=== PATIENT | female | born 1940 | race Caucasian/White ===

== ENCOUNTER → 2019-08-12 13:56 | Outpatient (BNVA) | payer MEDICARE, MEDICAID, SELFPAY | PROVIDERS: Family Provider Family Medicine; Visit Provider Family Medicine | DX: M25.561 Pain in right knee (principal); M25.461 Effusion, right knee | CPT/HCPCS: 73562 ==

== ENCOUNTER 2019-08-14 13:07 | Emergency (ER) | payer MEDICARE, MEDICAID, SELFPAY ==
[2019-08-14 13:23] VITALS: BP 165/77; PULSE 86; RESP 16; TEMP 37; O2SAT 96; BMI 27.7
--- NOTE | 2019-08-14 13:46 | ED_ITS ---
HPI - Extremity Problem General: Chief complaint: Extremity Injury, Lower Stated complaint: Rt leg pain/fall last week Time Seen by Provider: 08/14/19 13:29 Source: patient Mode of arrival: ambulatory Limitations: no limitations History of Present Illness: HPI Narrative: 79-year-old female with a history of arthritis states she has been having right knee pain over the last 5 to 6 days with worsening recently. Patient seen yesterday and had x-rays showed osteoarthritis. She states they did not give her any pain meds and she is having worsening pain. She is able to walk but states it painful. She has an appoint with Dr. Pike next week. Denies any new injuries. Denies any swelling in her legs. MD Complaint: extremity pain and joint paint Onset (ago): day(s) Pain Consistency: constant Location: right Severity scale (1-10): 5 Quality: sharp Radiation: none Relieving factors: immobilization Exacerbating factors: range of motion Associated symptoms: Reports no associated symptoms; Deny chest pain, fever(s) or rash Review of Systems Const: Denies: fever, chills, body aches or change in appetite Eyes: Denies: blurry vision or eye discomfort ENMT: Denies: throat pain or dental pain Card: Denies: chest pain Resp: Denies: shortness of breath GI: Denies: abdominal pain, nausea, vomiting or diarrhea : Denies: painful urination Musc: Reports: joint pain; Denies: neck pain or back pain Skin/Breast: Denies: rash Neuro: Denies: headache Psych: Denies: depression Joni/Lymph: Denies: easy bruising All/Imm: Denies: hives [facility] ED PFSH: Social History (Updated 08/12/19 @ 13:00 by Miriam Perez LPN) Smoking and tobacco status: never smoked Quit status (tobacco): has quit using tobacco Year quit tobacco: 07/01/1995 Physical Exam Const: COMMON NORMALS: no apparent distress, oriented x3 and healthy appearing HENMT: COMMON NORMALS: normocephalic and head/scalp atraumatic HEAD & SCALP: normocephalic and atraumatic Eye: COMMON NORMALS: PERRL and EOMs intact bilaterally PUPIL: Yes PERRL Neck/C-Spine: COMMON NORMALS: full ROM and supple Chest: COMMONS NORMALS: inspection of chest normal and palpation of chest normal Resp: COMMON NORMALS: normal respiratory effort, no retractions, no use of accessory muscles and clear to auscultation bilaterally AUSCULTATION: clear to auscultation bilaterally Cardio: COMMON NORMALS: regular rate, regular rhythm and no murmurs RATE: regular rate RHYTHM: regular rhythm GI: COMMON NORMALS: normal to inspection, nondistended, normoactive bowel sounds, soft to palpation, non-tender and no masses PALPATION: Yes soft Extremity: COMMON NORMALS: normal to inspection and full ROM NARRATIVE EXTREMITY EXAM: Tenderness to right knee with slight swelling. She does have some pain with range of motion with no signs of septic joint. No warmth to touch. Neuro: COMMON NORMALS: oriented x3, moves all extremities and no focal motor deficits Psych: COMMON NORMALS: mental status grossly normal, thought process normal a nd cooperative THOUGHT PROCESS: normal thought process Skin: COMMON NORMALS: no rashes or lesions noted and no wounds GENERAL SKIN EXAM: no rashes or lesions noted Course Vital Signs: Vital signs: Vital Signs Temperature 98.6 F 08/14/19 13:23 Pulse Rate 86 08/14/19 13:23 Respiratory Rate 16 08/14/19 13:23 Blood Pressure 165/77 08/14/19 13:23 Pulse Oximetry 96 08/14/19 13:23 MDM - Extremity (Nontraumatic) MDM Narrative: Medical decision making narrative: Patient presents with knee pain that is chronic in nature likely from arthritis. I reviewed x-ray done yesterday and just shows arthritis. I feel she does not need a repeat x-ray at this time. She has no signs of septic joint. We will place her in an Arya wrap and write pain meds and she is to follow-up with Shahzad next week as scheduled. Discharge Plan Discharge Patient Disposition: Home, Self-Care Clinical Impression: Knee pain, right Qualifiers: Chronicity: chronic Qualified Code(s): M25.561 - Pain in right knee Condition: Stable Prescriptions: [place] 5-325 mg tablet 1 tab PO Q6H PRN (Reason: pain) Qty: 10 RF: 0 EC-Naprosyn 500 mg tablet,delayed release (DR/EC) 500 mg PO BID PRN (Reason: pain) Qty: 20 RF: 0 No Action clopidogrel [Plavix] 75 mg tablet 75 mg PO DAILY RF: 0 metoprolol succinate 200 mg tablet extended release 24 hr 200 mg PO DAILY RF: 0 enalapril maleate 20 mg tablet 20 mg PO BID RF: 0 amlodipine [Norvasc] 10 mg tablet 10 mg PO DAILY RF: 0 famotidine 40 mg tablet 40 mg PO DAILY RF: 0 aspirin [Adult Low Dose Aspirin] 81 mg tablet,delayed release (DR/EC) 81 mg PO DAILY RF: 0 Discharge Orders: Discharge Order (Routine); Ordered 08/14/19 Ordered By: Gaetano Navarrete Referrals: Primo Dunlap MD [Primary Care Provider] - Discharge Diet: Advance as tolerated Discharge Activity: Resume usual activity Patient Instructions: Knee Pain (ED) Discharge Date/Time: 08/14/19 14:10 Coding Level of Care Code ED 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
[2019-08-14] MEDS: HYDROcodone-acetaminophen 5-325 mg Tablet 1 TAB PO (13:49)
== END 2019-08-14 14:10 | disposition home or self-care (01) ==
PROVIDERS: Emergency Provider Emergency Medicine; Family Provider Family Medicine; PCP Family Medicine
DX: M25.561 Pain in right knee (principal); M17.11 Unilateral primary osteoarthritis, right knee; Z87.891 Personal history of nicotine dependence
CPT/HCPCS: 12345; 99281; 99283

== ENCOUNTER → 2019-10-26 13:02 | Outpatient (BNVA) | payer MEDICARE, MEDICAID, SELFPAY | PROVIDERS: Family Provider Family Medicine; PCP Family Medicine; Referring Provider Family Medicine; Visit Provider Specialist | DX: M25.561 Pain in right knee (principal); M17.11 Unilateral primary osteoarthritis, right knee | CPT/HCPCS: 73560; 73565 ==

== ENCOUNTER 2020-02-13 11:32 | Emergency (ER) | payer MEDICARE, MEDICAID, SELFPAY ==
[2020-02-13 11:40] VITALS: BP 173/90; PULSE 87; RESP 18; TEMP 36.7; O2SAT 92; BMI 28.2
--- NOTE | 2020-02-13 12:09 | CTR_ITS ---
PROCEDURE INFORMATION: Exam: CT Maxillofacial Without Contrast Exam date and time: 02/13/2020 12:59 PM Age: 79 years old Clinical indication: Injury or trauma; Fall; Initial encounter; Blunt trauma (contusions or hematomas); Maxilla and jaw; Left TECHNIQUE: Imaging protocol: Computed tomography images of the face without contrast. Radiation optimization: All CT scans at this facility use at least one of these dose optimization techniques: automated exposure control; mA and/or kV adjustment per patient size (includes targeted exams where dose is matched to clinical indication); or iterative reconstruction. COMPARISON: No relevant prior studies available. RADIATION DOSE METRICS: Total DLP (mGy-cm): 752.02 FINDINGS: Orbits: Orbits are normal. Globes are unremarkable. Bones/joints: There are hairline defects through the nasal bone of unknown chronicity. Concave contour abnormality of the left zygomatic arch has a chronic appearance. There are degenerative changes across the temporomandibular joints. Paranasal sinuses: Normal. No air-fluid levels. Soft tissues: There is hematoma in the right facial soft tissues. Dental: Patient is edentulous with dental prosthesis in place. Vasculature: Calcified plaque is present within multiple vascular structures. CT/CT facial bones wo con* [id number] IMPRESSION: 1. There are hairline defects through the nasal bone of unknown chronicity. 2. Concave contour abnormality of the left zygomatic arch has a chronic appearance. 3. There is hematoma in the right facial soft tissues. Radiation Dose CTDIVOL = (mGy): DLP = 752.02 (mGy-cm)
--- NOTE | 2020-02-13 12:09 | CTR_ITS ---
PROCEDURE INFORMATION: Exam: CT Lumbar Spine Without Contrast Exam date and time: 02/13/2020 12:59 PM Age: 79 years old Clinical indication: Injury or trauma; Fall; Initial encounter; Blunt trauma (contusions or hematomas) TECHNIQUE: Imaging protocol: Computed tomography images of the lumbar spine without contrast. Radiation optimization: All CT scans at this facility use at least one of these dose optimization techniques: automated exposure control; mA and/or kV adjustment per patient size (includes targeted exams where dose is matched to clinical indication); or iterative reconstruction. COMPARISON: No relevant prior studies available. RADIATION DOSE METRICS: Total DLP (mGy-cm): 2185.27 FINDINGS: Vertebrae: Mild dextroscoliosis. Acute 10% anterior compression fracture of L1. 1.3 cm benign intraosseous hemangioma in the region of L1. Discs/Spinal canal/Neural foramina: Borderline L2-L3 central spinal stenosis with bilateral lateral recess stenosis. Mild L3-L4 central spinal stenosis with [id number] bilateral lateral recess stenosis. Mild central spinal stenosis with mild bilateral lateral recess stenosis. Mild right posterolateral L4-L5 disc protrusion which may touch the traversing right S1 nerve root. Kidneys and ureters: One or more nonobstructing left renal calyceal stones. Vasculature: Calcification of the abdominal aorta and/or iliac arteries consistent with atherosclerotic vessel disease. Soft tissues: Unremarkable. CT/CT lumbar spine wo con* [id number] IMPRESSION: 1. Acute 10% anterior compression fracture of L1. 2. Borderline L2-L3 central spinal stenosis with bilateral lateral recess stenosis. 3. Mild L3-L4 central spinal stenosis with [id number] bilateral lateral recess stenosis. 4. Mild right posterolateral L4-L5 disc protrusion which may touch the traversing right S1 nerve root. Radiation Dose CTDIVOL = (mGy): DLP = 2185.27 (mGy-cm)
--- NOTE | 2020-02-13 12:09 | CTR_ITS ---
PROCEDURE INFORMATION: Exam: CT Head Without Contrast Exam date and time: 02/13/2020 12:59 PM Age: 79 years old Clinical indication: Injury or trauma; Fall TECHNIQUE: Imaging protocol: Computed tomography of the head without contrast. Radiation optimization: All CT scans at this facility use at least one of these dose optimization techniques: automated exposure control; mA and/or kV adjustment per patient size (includes targeted exams where dose is matched to clinical indication); or iterative reconstruction. COMPARISON: No relevant prior studies available. RADIATION DOSE METRICS: Total DLP (mGy-cm): 803.36 FINDINGS: Brain: Periventricular and subcortical white matter low densities are present which at this age likely represent microvascular ischemic change. 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 There are multiple chronic lacunar infarcts in the internal/external capsules and basal ganglia.No evidence for large acute ischemic infarction. Please note acute ischemia can be occult by head CT. Benign-appearing calcification along the falx cerebrum. Ventricles: No ventriculomegaly. Bones/joints: Unremarkable. No acute fracture. Paranasal sinuses: Visualized sinuses are unremarkable. No fluid levels. Mastoid air cells: There is fluid and/or mucosal thickening in the right mastoid air cells. Vasculature: Calcified plaque is present within the intracranial vasculature. Soft tissues: Unremarkable. CT/CT head wo con* [id number] IMPRESSION: 1. There is a chronic left temporoparietal infarct.There are senescent changes of the brain as described above. No evidence for large acute ischemic infarction or acute intracranial injury. 2. There is fluid and/or mucosal thickening in the right mastoid air cells consistent with mastoiditis. Radiation Dose CTDIVOL = (mGy): DLP = 803.36 (mGy-cm)
--- NOTE | 2020-02-13 12:09 | CTR_ITS ---
PROCEDURE INFORMATION: Exam: CT Cervical Spine Without Contrast Exam date and time: 02/13/2020 12:59 PM Age: 79 years old Clinical indication: Injury or trauma; Fall; Initial encounter; Blunt trauma TECHNIQUE: Imaging protocol: Computed tomography images of the cervical spine without contrast. Radiation optimization: All CT scans at this facility use at least one of these dose optimization techniques: automated exposure control; mA and/or kV adjustment per patient size (includes targeted exams where dose is matched to clinical indication); or iterative reconstruction. COMPARISON: No relevant prior studies available. RADIATION DOSE METRICS: Total DLP (mGy-cm): 480.41 FINDINGS: Vertebrae: No acute fracture. Normal alignment. Discs/Spinal canal/Neural foramina: There are degenerative changes throughout the visualized spine including marginal osteophyte formations, endplate degenerative changes, and facet arthropathy. Multilevel disc space narrowing. There are multilevel broad-based disc osteophyte complexes which indent the anterior thecal sac and result in varying degrees of bilateral neuroforamina narrowing. There are midline disc protrusions indenting the anterior thecal sac at the C2-C3 in the C3-C4 level. There is a midline/right paracentral extrusion at the C4-C5 level which flattens the anterior aspect of the cervical cord. Other bones/joints: Chronic/healed left clavicular fracture. Soft tissues: Unremarkable. Lungs: Lung apices are normal. CT/CT cervical spin wo con* [id number] IMPRESSION: 1. There are midline disc protrusions indenting the anterior thecal sac at the C2-C3 in the C3-C4 level. There is a midline/right paracentral extrusion at the C4-C5 level which flattens the anterior aspect of the cervical cord. 2. There are degenerative changes in the cervical spine as described above. No evidence for acute fracture. Radiation Dose CTDIVOL = (mGy): DLP = 480.41 (mGy-cm)
--- NOTE | 2020-02-13 12:09 | XRR_ITS ---
PROCEDURE INFORMATION: Exam: XR Right Humerus Exam date and time: 02/13/2020 12:14 PM Age: 79 years old Clinical indication: Injury or trauma; Fall; Initial encounter; Blunt trauma (contusions or hematomas); Arm, upper; Right TECHNIQUE: Imaging protocol: XR Right humerus Views: 2 or more views. COMPARISON: No relevant prior studies available. FINDINGS: Bones/joints: There is chronic fracture deformity in the proximal shaft and head of the humerus Soft tissues: Metallic surgical clips seen in the right lateral chest [place] XR/[place] [id number] IMPRESSION: 1. Chronic fracture deformity proximal shaft and head of the humerus. 2. Metallic surgical clips right lateral chest wall 3. Otherwise negative for acute bony abnormalities
--- NOTE | 2020-02-13 12:14 | ED_ITS ---
HPI - Fall General: Chief Complaint: Fall Stated Complaint: FALL/BACK PAIN Time Seen by Provider: 02/13/20 12:01 Source: patient Mode of arrival: ambulatory Limitations: no limitations History of Present Illness: HPI Narrative: Patient states that for years she has had dizziness upon getting out of bed. Yesterday she states that she went to get out of bed and fell was evaluated by her primary care provider and given a steroid shot. Pain has progressively gotten worse patient has large hematoma to right side of her face, large area of bruising to upper arm on the right, sc attered deep bruising covering her lower back. Pain is located primarily in her lower back complaint: fall Onset (ago): day(s) (1) Fall from: standing Fall witnessed: no Place fall occurred: home Loss of consciousness: None Prolonged down time: no Symptoms prior to fall: dizziness Location of injury: face, back and other (Right arm) Review of Systems General: Reports: 10 or more systems reviewed and unremarkable except in HPI and below Musc: Reports: back pain and extremity pain Joni/Lymph: Reports: easy bruising PFSH ED PFSH: Medical History (Updated 02/13/20 @ 14:33 by Christiane Benavides APRN) Anxiety Dyslipidemia Essential (primary) hypertension GERD (gastroesophageal reflux disease) Vitamin D deficiency Surgical History History of appendectomy History of cholecystectomy History of hysterectomy History of lumpectomy of both breasts Total knee replacement status LEFT Family History Brother Cancer Social History Smoking and tobacco status: former smoker Quit status (tobacco): has quit using tobacco Second hand smoke exposure: No Smoking risk assessment/counseling performed?: No Alcohol intake: never Desire information about alcohol rehabilitation?: No Counseling given: No Desire information about substance/drug rehabilitation?: No Counseling given: No Caregiver/support person: No Lives independently: Yes Household members: spouse Housing: House Marital status: service: No Current occupational status: retired History of recent travel: No Current gender identity: Female Physical Exam Const: COMMON NORMALS: no acute distress, patient oriented x3 and alert GENERAL APPEARANCE: cooperative and well kempt HENMT: COMMON NORMALS: normocephalic, external ears normal and TM's normal bilaterally HEAD & SCALP: normocephalic and hematoma HEAD IMAGES: 1. hematoma FACE & SINUS: sinuses nontender and face symmetric EXTERNAL EAR: Yes external ears normal TYMPANIC MEMBRANE: TM's normal bilaterally MOUTH: Normal oral and palatal mucosa present Eye: COMMON NORMALS: Equal, round and reactive pupils present GENERAL EYE: appearance normal, both eyes and all related structures PUPIL: Yes Equal, round and reactive pupils present and Yes Pupil accommodation reflex normal Neck/C-Spine: COMMON NORMALS: full ROM, no lymphadenopathy, supple, no JVD, Thyroid normal and No carotid bruits GENERAL: Yes trachea midline THYROID: Thyroid normal, no masses and nontender CERVICAL SPINE: Yes cervical ROM normal Lymph: LYMPHATIC: no lymphadenopathy noted Chest: CHEST: Yes Symmetrical chest wall rise Resp: COMMON NORMALS: normal respiratory effort and clear to auscultation bila terally EFFORT & INSPECTION: Yes able to speak in complete sentences AUSCULTATION: clear to auscultation bilaterally Cardio: COMMON NORMALS: no JVD, regular rhythm and No murmurs present (Cardio) PALPATION: normal PMI RHYTHM: regular rhythm GI: COMMON NORMALS: non-tender, no masses and no bruits INSPECTION: Yes normal to inspection, No scar and No striae AUSCULTATION: Yes normoactive bowel sounds PALPATION: No Tenderness to palpation present (GI), No Guarding due to palpation present (GI), No Rigid due to palpation, No Hernia present and No Rebound tenderness present PERCUSSION: normal to percussion : EXTERNAL FEMALE EXAM: No Hernia present Back/Pelvis: GENERAL BACK: No swelling and No tenderness THORACIC SPINE/UPPER BACK: No pain with ROM Extremity: COMMON NORMALS: normal to inspection, no clubbing, cyanosis or edema and no calf tenderness RIGHT UPPER EXTREMITY: Yes upper arm Right upper arm: Yes inspection (Bruising covering extent of upper arm) and Yes palpation (Tenderness to palpation) Neuro: COMMON NORMALS: patient oriented x3 and moves all extremities SENSORIUM/ORIENTATION: Yes alert CRANIAL NERVES: Yes CN normal except as noted GAIT: Yes Normal gait present MOTOR EXAM: 5/5 motor strength present throughout Psych: COMMON NORMALS: mental status grossly normal APPEARANCE: Yes well kempt Skin: COMMON NORMALS: turgor normal NARRATIVE SKIN EXAM: Normal coloration of skin SKIN IMAGES (FEMALE): 1. Bruising 2. Scattered bruising GENERAL SKIN EXAM: turgor normal LESIONS: no lesions RASHES: no rashes TRAUMA: no lacerations or abrasions Course ED course: Patient fell getting up from bed yesterday, was evaluated by her primary care provider no imaging studies ordered at that time. Patient concerned due to progression of pain requesting imaging studies of back. Back is painful with jarring or movement or twisting motion acute onset from fall. Reevaluation(s): Time: 14:33 Reevaluation #2: Discussed results of CT imaging. Patient has acute compression fracture of L1. Due to compression fracture admission was discussed. Patient ins isted she needed to go home. She will follow up with next week regarding fracture. Discussed refusal of admission with daughter and she agrees that she has caregivers in home to ensure she does not fall or further injure. Vital Signs: Vital signs: Vital Signs Temperature 98.1 F 02/13/20 11:40 Pulse Rate 87 02/13/20 11:40 Respiratory Rate 18 02/13/20 11:40 Blood Pressure 173/90 02/13/20 11:40 Pulse Oximetry 92 02/13/20 11:40 MDM - Fall MDM Narrative: Medical decision making narrative: Discharge home with close follow up with next week. Discharge Plan Discharge Patient Disposition: Home Clinical Impression: Lumbar vertebral fracture Qualifiers: Encounter type: initial encounter Lumbar vertebra fracture level: L1 Fracture type: closed Fracture morphology: wedge compression Qualified Code(s): S32.010A - Wedge compression fracture of first lumbar vertebra, initial encounter for closed fracture Spinal stenosis of lumbar region Qualifiers: Neurogenic claudication status: unspecified Qualified Code(s): M48.061 - Spinal stenosis, lumbar region without neurogenic claudication Condition: Stable Prescriptions: New hydrocodone-acetaminophen 5-325 mg tablet 1 - 2 tab PO Q6H PRN (Reason: pain) 5 Days Qty: 40 RF: 0 No Action clopidogrel [Plavix] 75 mg tablet 75 mg PO DAILY RF: 0 metoprolol succinate 200 mg tablet extended release 24 hr 200 mg PO BEDTIME RF: 0 enalapril maleate 20 mg tablet 20 mg PO BID RF: 0 amlodipine [Norvasc] 10 mg tablet 10 mg PO DAILY RF: 0 famotidine 40 mg tablet 40 mg PO DAILY RF: 0 aspirin [Adult Low Dose Aspirin] 81 mg tablet,delayed release (DR/EC) 81 mg PO DAILY RF: 0 clonazepam 0.5 mg tablet 0.5 mg PO BID RF: 0 tramadol 50 mg tablet 50 mg PO QID PRN (Reason: Pain) RF: 0 simvastatin 20 mg tablet 20 mg PO DAILY RF: 0 amitriptyline 100 mg tablet 100 mg PO BEDTIME PRN (Reason: unknown) RF: 0 28 mg iron- 800 mcg Tablet 1 tab PO DAILY RF: 0 Discharge Orders: Discharge Order (Routine); Ordered 02/13/20 Ordered By: Christiane Benavides Referrals: Primo Dunlap MD [Primary Care Provider] - 1-3 days Discharge Diet: Usual diet Discharge Activity: Limit activity as instructed Patient Instructions: Vertebral Compression Fracture (ED), Lumbar Disc Herniation (ED), Lumbar Spinal Stenosis (ED) Coding Level of Care Code 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
[2020-02-13] MEDS: HYDROcodone-acetaminophen 5-325 mg Tablet 1 TAB PO (12:27)
[2020-02-13] MEDS: tizanidine 4 mg Tablet PO (14:02)
[2020-02-13 14:46] VITALS: BP 169/82; PULSE 93; RESP 18; O2SAT 93
== END 2020-02-13 14:48 | disposition home or self-care (01) ==
PROVIDERS: Emergency Provider Nurse Practitioner Family; Family Provider Family Medicine; PCP Family Medicine
DX: S32.010A Wedge compression fracture of first lumbar vertebra, initial encounter for closed fracture (principal); M48.061 Spinal stenosis, lumbar region without neurogenic claudication; Z79.02 Long term (current) use of antithrombotics/antiplatelets; Z79.82 Long term (current) use of aspirin; E78.5 Hyperlipidemia, unspecified; I10 Essential (primary) hypertension; Z87.891 Personal history of nicotine dependence; W06.XXXA Fall from bed, initial encounter
CPT/HCPCS: 12345; 70450; 70486; 72125; 72131; 73060; 99281; 99283

== ENCOUNTER 2020-02-18 09:00 | Outpatient (CLI) | payer MEDICARE, MEDICAID, SELFPAY | END 2020-02-18 09:01 | disposition home or self-care (01) | LOC: SPT 05-09 17:59 | PROVIDERS: PCP Family Medicine; Referring Provider Family Medicine; Visit Provider Family Medicine | DX: M54.89 Other dorsalgia (principal); Z46.89 Encounter for fitting and adjustment of other specified devices | CPT/HCPCS: 97760; L0637 ==

== ENCOUNTER 2020-02-25 11:27 | Emergency (ER) | payer MEDICARE, MEDICAID, SELFPAY ==
[2020-02-25 12:21] VITALS: BP 107/72; PULSE 71; RESP 18; TEMP 36.4; O2SAT 95; BMI 27.4
--- NOTE | 2020-02-25 13:18 | W.ED.BACK ---
HPI - Back Pain/Injury General: Chief Complaint: Back Pain/Injury Stated Complaint: BACK PAIN Source: patient Mode of arrival: ambulatory Limitations: no limitations History of Present Illness: HPI Narrative: Patient is an 79-year-old female who presents to ED today with a complaint of back pain. Patient was seen here last month and diagnosed with an L1 compression fracture. She apparently followed up with her PCP Dr. Dunlap who recommended physical therapy starting a month after her initial injury. Patient tells me she has not been taking anything [id number] at home as Tylenol and ibuprofen upset her stomach. She tells me at one point she was taking Tramadol but states she is out of this medication. Patient tells me she has a Band-Aid on her back because there is an area of soreness that is new. Patient has not had any new injury or trauma to her back. MD elicited complaint: back pain Onset (ago): day(s) Timing: constant Similar Symptoms Previously: Yes Radiation: none Associated symptoms: Deny abdominal pain, chills, dysuria, fatigue, fever(s), nausea, urinary urgency or vomiting Review of Systems Const: Denies: fever(s), chills, body aches, fatigue or malaise Card: Denies: chest pain Resp: Denies: dyspnea GI: Denies: abdominal pain, nausea or vomiting : Denies: flank pain, difficulty voiding, dysuria, urinary frequency, urinary urgency or urinary hesitancy Musc: Reports: back pain; Denies: neck pain, extremity pain, extremity swelling, joint pain or joint swelling Skin/Breast: Reports: other (sore to back) Neuro: Denies: headache(s), numbness in extremities, weakness in extremities or sensory changes PFS ED PFSH: Medical History (Updated 02/25/20 @ 13:37 by GALLITO Evans) Anxiety Dyslipidemia Essential (primary) hypertension GERD (gastroesophageal reflux disease) Vitamin D deficiency Surgical History History of appendectomy History of cholecystectomy History of hysterectomy History of lumpectomy of both breasts Total knee replacement status LEFT Family History Brother Cancer Social History Smoking and tobacco status: former smoker Quit status (tobacco): has quit using tobacco Second hand smoke exposure: No Smoking risk assessment/counseling performed?: No Alcohol intake: never Desire information about alcohol rehabilitation?: No Counseling given: No Desire information about substance/drug rehabilitation?: No Counseling given: No Caregiver/support person: No Lives independently: Yes Household members: spouse Housing: House Marital status: service: No Current occupational status: retired History of recent travel: No Current gender identity: Female Physical Exam Const: COMMON NORMALS: no acute distress, patient oriented x3, no limitations and alert ORIENTATION/CONSCIOUSNESS: Yes oriented to person, Yes oriented to place and Yes oriented to time : COMMON NORMALS: Yes no CVA tenderness BLADDER/KIDNEY EXAM: Yes no CVA tenderness Back/Pelvis: COMMON NORMALS: no CVA tenderness THORACIC SPINE/UPPER BACK: Yes normal to inspection and Yes thoracic ROM normal LUMBAR SPINE/LOWER BACK: Yes lumbar ROM normal and Yes lumbar spinal tenderness Lumbar spinal tenderness location: L1 PELVIS: Yes buttocks normal SACROILIAC JOINTS: Yes SI joints normal Extremity: COMMON NORMALS: full ROM GENERAL: Yes normal exam except as noted OTHER: old ecchymosis to R UE; full ROM Neuro: COMMON NORMALS: patient oriented x3, moves all extremities, no focal motor deficits, no sensory deficits noted and gait normal SENSORIUM/ORIENTATION: Yes alert, Yes oriented to person, Yes oriented to place and Yes oriented to time Skin: OTHER: pt has an area about 1 inch of erythema with healing granulation tissue to R of upper midline lumbar spine; she does tell me she has been using a heating pad Course Vital Signs: Vital signs: Vital Signs Temperature 97.5 F L 02/25/20 12:21 Pulse Rate 71 02/25/20 12:21 Respiratory Rate 18 02/25/20 12:21 Blood Pressure 107/72 02/25/20 12:21 Pulse Oximetry 95 02/25/20 12:21 MDM - Back Pain/Injury MDM Narrative: Medical decision making narrative: Due to patient's age and location of her burn she most likely will not be able to treat this appropriately at home. We will have case management set her up with wound care so they can ensure wound heals. Will place her on Keflex at this time. She will be given Tramadol for her pain in regards to her L1 compression fracture. Recommend she follow-up with Dr. Dunlap. She thinks she has a scheduled appointment in 1 to 2 weeks. Recommend continuing on the plan for physical therapy and/or referral to pain management if indicated. Discharge Plan Discharge Patient Disposition: Home Clinical Impression: Second degree burn Closed compression fracture of L1 vertebra Qualifiers: Encounter type: subsequent encounter Fracture healing: with routine healing Qualified Code(s): S32.010D - Wedge compression fracture of first lumbar vertebra, subsequent encounter for fracture with routine healing Condition: Stable Prescriptions: New tramadol 50 mg tablet 50 mg PO Q6H PRN (Reason: pain) Qty: 14 RF: 0 Keflex 500 mg capsule 500 mg PO Q6H 7 Days Qty: 28 RF: 0 No Action clopidogrel [Plavix] 75 mg tablet 75 mg PO DAILY RF: 0 metoprolol succinate 200 mg tablet extended release 24 hr 200 mg PO BEDTIME RF: 0 enalapril maleate 20 mg tablet 20 mg PO BID RF: 0 amlodipine [Norvasc] 10 mg tablet 10 mg PO DAILY RF: 0 famotidine 40 mg tablet 40 mg PO DAILY RF: 0 aspirin [Adult Low Dose Aspirin] 81 mg tablet,delayed release (DR/EC) 81 mg PO DAILY RF: 0 clonazepam 0.5 mg tablet 0.5 mg PO BID RF: 0 tramadol 50 mg tablet 50 mg PO QID PRN (Reason: Pain) RF: 0 simvastatin 20 mg tablet 20 mg PO DAILY RF: 0 amitriptyline 100 mg tablet 100 mg PO BEDTIME PRN (Reason: unknown) RF: 0 28 mg iron- 800 mcg Tablet 1 tab PO DAILY RF: 0 Discharge Orders: Discharge Order (Routine); Ordered 02/25/20 Ordered By: Arianna Lake Referrals: Primo Dunlap MD [Primary Care Provider] - Patient Instructions: Thermal Santiago, Vertebral Compression Fracture (ED), Partial Thickness Burn (ED) Activity Restrictions/Additional Instructions: As discussed I am placing you on antibiotics for the burn on your back. Case management should also be contacting you shortly to set you up with wound care to ensure the wound heals. Please follow-up with Dr. Dunlap in 1 to 2 weeks as scheduled. Discharge Date/Time: 02/25/20 13:51 Coding Level of Care Code ED Semiconductor Wafers Tester for Denise Cunningham
[2020-02-25 13:49] VITALS: BP 112/82; PULSE 80; RESP 16; O2SAT 95
--- NOTE | 2020-02-25 14:58 | DCPLANNER ---
commercial relationship manager had message to schedule a follow up appointment with Wound Care. commercial relationship manager called the Wound Care clinic, spoke with Radha, gave clinic patients information, a follow up appointment is scheduled for Saturday, February 29, 2020 at 2:00 with Jolynn. commercial relationship manager called phone numbers [phone] and [phone]. commercial relationship manager was unable to speak with patient at this time, a voicemail was left for patient to return pillowcase turner phone call about appointment information.
--- NOTE | 2020-02-26 11:47 | DCPLANNER ---
patient scheduling manager called patient and gave patient the appointment information with Wound Care. Patient stated that she would attend appointment.
--- NOTE | 2020-03-07 10:24 | DCPLANNER ---
Patient had a follow up appointment scheduled for 02.29.20 with Wound Care - patient did not attend appointment.
== END 2020-02-25 13:51 | disposition home or self-care (01) ==
PROVIDERS: Emergency Provider Physician Assistant; PCP Family Medicine
DX: S32.010A Wedge compression fracture of first lumbar vertebra, initial encounter for closed fracture (principal); T21.24XA Burn of second degree of lower back, initial encounter; Z79.02 Long term (current) use of antithrombotics/antiplatelets; Z79.82 Long term (current) use of aspirin; X19.XXXA Contact with other heat and hot substances, initial encounter; Z87.891 Personal history of nicotine dependence; E78.5 Hyperlipidemia, unspecified; I10 Essential (primary) hypertension
CPT/HCPCS: 12345; 99281

== ENCOUNTER 2020-04-12 13:40 | Outpatient (CLI) | payer MEDICARE, MEDICAID, SELFPAY ==
--- NOTE | 2020-04-12 13:49 | CT_ITS ---
WS: [id number] Exam: CT lumbar spine wo con* [id number] Date/Time of Exam: 04/12/2020 2:00 PM Reason For Exam: LATE EFFECT OF FRACTURE OF LUMBAR VERTEBRA DLP: 2063.[address] scans at [facility] use at least one of these dose optimization techniques: automat ed exposure control; mA and/or kV adjustment per patient size (includes targeted exams where dose is matched to clinical indication); or iterative reconstruction. Comparison 02/13/2020 Increasing loss of vertebral height involving a compression fracture of the cephalad end plate of L1. There is now about 20% loss of vertebral height and about 3 mm central and left retropulsion of the fracture. This causes minimal canal stenosis at this level. There is also moderately severe relative central spinal canal stenosis at the L4-5 disc level secondary to posterior disc bulging, facet hyper trophy and ligamentous thickening. There is moderate spinal canal stenosis at the L2-3 and L3-4 disc levels. There is mild spinal canal stenosis at the L1-2 disc level. No significant foraminal stenosis is demonstrated. Facet DJD at all levels. Paraspinal and retroperitoneal soft tissue structures are unremarkable. CT/CT lumbar spine wo con* [id number] IMPRESSION: 1. Progressive loss of vertebral height involving a compression fracture of the L1. There is now about 20% loss of vertebral height and about 3 mm retropulsio n which causes minimal canal stenosis. 2. Moderately severe spinal canal stenosis at the L4-5 disc level. 3. Moderate spinal canal stenosis at L2-3 and L3-4. 4. Mild spinal canal stenosis at L1-2.
== END 2020-04-12 13:41 | disposition home or self-care (01) ==
LOC: RADWPI 13:47
PROVIDERS: PCP Family Medicine; Visit Provider Family Medicine
DX: S32.010A Wedge compression fracture of first lumbar vertebra, initial encounter for closed fracture (principal); M48.061 Spinal stenosis, lumbar region without neurogenic claudication; X58.XXXA Exposure to other specified factors, initial encounter
CPT/HCPCS: 72131

== ENCOUNTER → 2020-05-05 16:01 | Outpatient (BNVA) | payer MEDICARE, MEDICAID, SELFPAY | PROVIDERS: PCP Family Medicine; Visit Provider Orthopaedic Surgery | DX: S32.000A Wedge compression fracture of unspecified lumbar vertebra, initial encounter for closed fracture (principal); X58.XXXA Exposure to other specified factors, initial encounter | CPT/HCPCS: 72114 ==

== ENCOUNTER → 2020-06-10 10:31 | Outpatient (BNVA) | payer MEDICARE, MEDICAID, SELFPAY | PROVIDERS: PCP Family Medicine; Visit Provider Orthopaedic Surgery | DX: M54.5 Low back pain (principal) | CPT/HCPCS: 72114 ==

== ENCOUNTER 2020-06-12 15:51 | Emergency (ER) | payer MEDICARE, MEDICAID, SELFPAY ==
[2020-06-12 16:04] VITALS: BP 124/77; PULSE 77; RESP 14; TEMP 36.2; O2SAT 97; BMI 25.2
[2020-06-12 16:22] VITALS: BP 110/85; PULSE 76; RESP 18; O2SAT 96
--- NOTE | 2020-06-12 16:24 | ED_ITS ---
HPI - Fall General: Chief Complaint: Fall Stated Complaint: fall/back pain Time Seen by Provider: 06/12/20 16:18 History of Present Illness: HPI Narrative: Patient complains about chronic back pain has seen Dr. Dunlap last week and now is supposed to see Dr. Melgar again on Saturday which is tomorrow patient is out of pain medication would like pain medication. MD complaint: fall and other Onset (ago): year(s) Severity: moderate Severity scale (1-10): 4 Quality: aching Associated symptoms-after fall: Reports no associated symptoms; Denies abdominal pain, chest pain or headache(s) Review of Systems Const: Denies: fever(s), chills or body aches Eyes: Denies: change in vision or blurry vision ENMT: Denies: throat pain or nasal congestion Card: Denies: chest pain or dyspnea on exertion Resp: Denies: dyspnea, productive cough or non-productive cough GI: Denies: abdominal pain, nausea or vomiting Musc: Reports: back pain (Chronic); Denies: extremity pain Skin/Breast: Denies: rash Neuro: Denies: headache(s) Psych: Denies: anxiety or depression Joni/Lymph: Denies: easy bruising PFSH ED PFSH: Medical History (Updated 06/12/20 @ 16:33 by GABRIELLA Foley) Anxiety Dyslipidemia Essential (primary) hypertension GERD (gastroesophageal reflux disease) Vitamin D deficiency Surgical History History of appendectomy History of cholecystectomy History of hysterectomy History of lumpectomy of both breasts Total knee replacement status LEFT Family History Brother Cancer Social History Smoking and tobacco status: former smoker Quit status (tobacco): has quit using tobacco Second hand smoke exposure: No Smoking risk assessment/counseling performed?: No Alcohol intake: never Desire information about alcohol rehabilitation?: No Counseling given: No Desire information about substance/drug rehabilitation?: No Counseling given: No Caregiver/support person: No Lives independently: Yes Household members: spouse Housing: House Marital status: service: No Current occupational status: retired History of recent travel: No Current gender identity: Female Physical Exam Const: COMMON NORMALS: no acute distress Cardio: COMMON NORMALS: regular rate RATE: regular rate Back/Pelvis: COMMON NORMALS: thoracic and lumbar spine normal to inspection Psych: COMMON NORMALS: mental status grossly normal Course Vital Signs: Vital signs: Vital Signs Temperature 98.6 F 06/12/20 17:08 Pulse Rate 76 06/12/20 17:08 Respiratory Rate 18 06/12/20 17:08 Blood Pressure 112/76 06/12/20 17:08 Pulse Oximetry 95 06/12/20 17:08 MDM - Fall MDM Narrative: Medical decision making narrative: Patient received 40 hydrocodone just this past week has not taken all those. She can continue on those present medications added Celebrex and home comfort measures Discharge Plan Discharge Patient Disposition: Home Clinical Impression: Compression fracture Condition: Stable Prescriptions: No Action clopidogrel [Plavix] 75 mg tablet 75 mg PO DAILY@0800 RF: 0 metoprolol succinate 200 mg tablet extended release 24 hr 200 mg PO BEDTIME@2200 RF: 0 enalapril maleate 20 mg tablet 20 mg PO BID@0800,2200 RF: 0 amlodipine [Norvasc] 10 mg tablet 10 mg PO DAILY@0800 RF: 0 famotidine 40 mg tablet 40 mg PO DAILY@0800 RF: 0 aspirin [Adult Low Dose Aspirin] 81 mg tablet,delayed release (DR/EC) 81 mg PO DAILY@0800 RF: 0 hydrocodone-acetaminophen [[place]] 5-325 mg tablet 1 tab PO Q6H PRN (Reason: pain) 7 Days Qty: 40 RF: 0 clonazepam 0.5 mg tablet 0.5 mg PO BID@0800,2200 RF: 0 tramadol 50 mg tablet 50 mg PO QID PRN (Reason: Pain) RF: 0 simvastatin 20 mg tablet 20 mg PO DAILY@0800 RF: 0 amitriptyline 100 mg tablet 100 mg PO BEDTIME@2200 PRN (Reason: unknown) RF: 0 PNV cmb#95-ferrous fumarate-FA [] 28 mg iron- 800 mcg Tablet 1 tab PO DAILY@0800 RF: 0 Discharge Orders: Discharge ED (Routine); Ordered 06/13/20 Ordered By: Jeet Davis Referrals: Primo Dunlap MD [Primary Care Provider] - Discharge Diet: Usual diet Discharge Activity: Increase activity as tolerated Patient Instructions: Vertebral Compression Fracture (ED) Activity Restrictions/Additional Instructions: Continue on present medication Dr. Melgar gave you. Can apply lidocaine patch to the back. She did wear a back brace. Dr. Melgar tomorrow as scheduled. Can also use ice and heat alternate to back area. Coding Level of Care Code ED Organic Gardening Teacher for Denise Fwd Exam Expanded Problem Focused
[2020-06-12 17:08] VITALS: BP 112/76; PULSE 76; RESP 18; TEMP 37; O2SAT 95
== END 2020-06-12 17:11 | disposition home or self-care (01) ==
PROVIDERS: Emergency Provider Nurse Practitioner Family; PCP Family Medicine
DX: T14.8XXA Other injury of unspecified body region, initial encounter (principal); E78.5 Hyperlipidemia, unspecified; I10 Essential (primary) hypertension; Z87.891 Personal history of nicotine dependence; X58.XXXA Exposure to other specified factors, initial encounter
CPT/HCPCS: 12345; 99281

== ENCOUNTER → 2020-06-13 15:21 | Outpatient (BNVA) | payer MEDICARE, MEDICAID, SELFPAY | PROVIDERS: PCP Family Medicine; Visit Provider Nurse Practitioner Family | DX: R10.9 Unspecified abdominal pain (principal); N39.0 Urinary tract infection, site not specified | CPT/HCPCS: 81003; 87086 ==

== ENCOUNTER → 2020-06-21 08:54 | Outpatient (BNVA) | payer MEDICARE, MEDICAID, SELFPAY | PROVIDERS: PCP Family Medicine; Visit Provider Orthopaedic Surgery | DX: S32.010D Wedge compression fracture of first lumbar vertebra, subsequent encounter for fracture with routine healing (principal); X58.XXXD Exposure to other specified factors, subsequent encounter | CPT/HCPCS: 72100 ==

== ENCOUNTER → 2020-08-23 11:03 | Outpatient (BNVA) | payer MEDICARE, MEDICAID, SELFPAY | PROVIDERS: PCP Family Medicine; Visit Provider Orthopaedic Surgery | DX: S32.010D Wedge compression fracture of first lumbar vertebra, subsequent encounter for fracture with routine healing (principal); X58.XXXD Exposure to other specified factors, subsequent encounter | CPT/HCPCS: 72110 ==

== ENCOUNTER → 2020-09-13 11:09 | Outpatient (BNVA) | payer MEDICARE, MEDICAID, SELFPAY | PROVIDERS: PCP Family Medicine; Visit Provider Orthopaedic Surgery | DX: M54.9 Dorsalgia, unspecified (principal); S32.010A Wedge compression fracture of first lumbar vertebra, initial encounter for closed fracture; W19.XXXA Unspecified fall, initial encounter; M25.522 Pain in left elbow | CPT/HCPCS: 72110; 73080 ==

== ENCOUNTER 2020-12-12 11:21 | Emergency (ER) | payer MEDICARE, MEDICAID, SELFPAY ==
[2020-12-12 11:31] VITALS: BP 116/76; PULSE 74; RESP 16; TEMP 37.2; O2SAT 93; BMI 26.6
--- NOTE | 2020-12-12 12:30 | XRR_ITS ---
PROCEDURE INFORMATION: Exam: XR Left Shoulder Exam date and time: 12/12/2020 12:30 PM Age: 80 years old Clinical indication: Injury or trauma; Fall; Blunt trauma (contusions or hematomas); Shoulder; Left TECHNIQUE: Imaging protocol: XR Left shoulder. Views: 2 or more views. COMPARISON: CR XR elbow LT min 3V* [id number] 09/13/2020 11:14 AM FINDINGS: Bones/joints: There is a transverse displaced fracture of the surgical neck of the humerus. A chronic fracture deformity is seen in the midshaft left clavicle. No glenohumeral joint dislocation is seen. Soft tissues: Unremarkable. XR/XR shoulder LT min 2V* [id number] IMPRESSION: 1. Displaced fracture surgical neck of the humerus. 2. Chronic fracture left midshaft clavicle 3. Otherwise negative examination.
--- NOTE | 2020-12-12 12:30 | XRR_ITS ---
PROCEDURE INFORMATION: Exam: XR Left Humerus Exam date and time: 12/12/2020 12:30 PM Age: 80 years old Clinical indication: Pain and injury or trauma; Fall; Blunt trauma (contusions or hematomas); Arm, upper; Left; Upper arm; Additional info: Fall/pain TECHNIQUE: Imaging protocol: XR Left humerus. Views: 2 or more views. COMPARISON: CR XR shoulder LT min 2V* [id number] 12/12/2020 1:02 PM FINDINGS: Bones/joints: There is a transverse displaced fracture through the surgical neck of the humerus. The remainder of the humerus does not show acute bony abnormalities. Soft tissues: Unremarkable XR/[place] [id number] IMPRESSION: No acute findings.
--- NOTE | 2020-12-12 14:34 | ED_ITS ---
HPI - Fall General: Chief Complaint: Extremity Injury, Upper Stated Complaint: Left arm pain 2nd to fall Time Seen by Provider: 12/12/20 14:15 Source: patient and family Mode of arrival: wheelchair Limitations: no limitations History of Present Illness: HPI Narrative: Patient is a nice 80-year-old female who presents to ED today with a complaint of left shoulder pain. Patient tells me yesterday while in her home she tripped and fell and landed onto her left shoulder. Patient has complained of pain since. She denies striking her head or LOC. She does not complain of neck or back pain. She has been ambulatory since the fall without difficulty. Patient tells me she is not on anticoagulation. MD complaint: fall Onset (ago): day(s) (yesterday) Fall from: standing Place fall occurred: home Loss of consciousness: None Prolonged down time: no Symptoms prior to fall: none Context: tripped/slipped Location of injury - extremities: Left: shoulder Severity: severe Associated symptoms-after fall: Reports no associated symptoms; Denies abdominal pain, chest pain or neck pain Review of Systems Const: Denies: fever(s) Eyes: Denies: change in vision or blurry vision Card: Denies: chest pain Resp: Denies: dyspnea GI: Denies: abdominal pain Musc: Reports: joint pain (L shoulder), joint swelling (L shoulder) and limited range of motion (L shoulder); Denies: neck pain, back pain, extremity pain or extremity swelling Neuro: Reports: other (bruising to L shoulder) [facility] ED PFSH: Medical History (Updated 12/12/20 @ 14:37 by GALLITO Evans) Anxiety Dyslipidemia Essential (primary) hypertension GERD (gastroesophageal reflux disease) Vitamin D deficiency Surgical History History of appendectomy History of cholecystectomy History of hysterectomy History of lumpectomy of both breasts Total knee replacement status LEFT Family History Brother Cancer Social History Smoking and tobacco status: former smoker Quit status (tobacco): has quit using tobacco Second hand smoke exposure: No Smoking risk assessment/counseling performed?: No Alcohol intake: never Desire information about alcohol rehabilitation?: No Counseling given: No Desire information about substance/drug rehabilitation?: No Counseling given: No Caregiver/support person: No Lives independently: Yes Household members: spouse Housing: House Marital status: service: No Current occupational status: retired History of recent travel: No Current gender identity: Female Physical Exam Const: COMMON NORMALS: no acute distress, average body habitus, patient oriented x3, no limitations, healthy appearing, alert and well nourished GENERAL APPEARANCE: cooperative ORIENTATION/CONSCIOUSNESS: Yes awake, Yes oriented to person, Yes oriented to place and Yes oriented to time HENMT: COMMON NORMALS: normocephalic and atraumatic HEAD & SCALP: normocephalic and atraumatic Neck/C-Spine: COMMON NORMALS: full ROM CERVICAL SPINE: No pain with cervical ROM and No Cervical spine tenderness Resp: COMMON NORMALS: normal respiratory effort and clear to auscultation bilaterally AUSCULTATION: clear to auscultation bilaterally Cardio: COMMON NORMALS: regular rate and regular rhythm RATE: regular rate RHYTHM: regular rhythm Back/Pelvis: COMMON NORMALS: thoracic and lumbar spine normal to inspection, no thoracic nor lumbar tenderness and thoraco-lumbar ROM normal Extremity: GENERAL: Yes normal exam except as noted LEFT UPPER EXTREMITY: Yes shoulder joint Left shoulder joint: Yes inspection (diffuse ecchymosis and pain to humeral head), Yes ROM (no ROM testing performed secondary to discomfort/deformity) and Yes neurovascular exam (normal) Neuro: COMMON NORMALS: patient oriented x3, moves all extremities, no focal motor deficits and no sensory deficits noted SENSORIUM/ORIENTATION: Yes alert, Yes oriented to person, Yes oriented to place and Yes oriented to time Skin: NARRATIVE SKIN EXAM: ecchymosis to L shoulder/upper arm; otherwise n ormal skin assessment Course Vital Signs: Vital signs: Vital Signs Temperature 99 F 12/12/20 11:31 Pulse Rate 74 12/12/20 11:31 Respiratory Rate 16 12/12/20 11:31 Blood Pressure 116/76 12/12/20 11:31 Pulse Oximetry 93 12/12/20 11:31 MDM - Fall MDM Narrative: Medical decision making narrative: Will place in sling and have her follow up with orthopedics as soon as possible. Imaging Data^: XR L humerus: Radiologist's impression: [address] [place] [address] XRay Report Signed Patient: Didi Victoria Unit #: [id number] : 1940 Age/Sex: 80 / F ADM Date: 12/12/20 Loc: ER Room/Bed: Attending Dr: Ordering Provider/Ordering MD: Arianna Lake Date of Service: 12/12/20 Procedure(s): [place] [id number] Accession Number(s): [id number] Report Number: [id number] PROCEDURE INFORMATION: Exam: XR Left Humerus Exam date and time: 12/12/2020 12:30 PM Age: 80 years old Clinical indication: Pain and injury or trauma; Fall; Blunt trauma (contusions or hematomas); Arm, upper; Left; Upper arm; Additional info: Fall/pain TECHNIQUE: Imaging protocol: XR Left humerus. Views: 2 or more views. COMPARISON: CR XR shoulder LT min 2V* [id number] 12/12/2020 1:02 PM FINDINGS: Bones/joints: There is a transverse displaced fracture through the surgical neck of the humerus. The remainder of the humerus does not show acute bony abnormalities. Soft tissues: Unremarkable XR/[place] [id number] IMPRESSION: No acute findings. Dictated By: Leon Botello Signed By: Leon Botello Signed Date/Time: 12/12/20 1400 DD/ 1358 XR L shoulder: Radiologist's impression: [facility] [address] [place] [address] XRay Report Signed Patient: Didi Victoria Unit #: [id number] : 1940 Age/Sex: 80 / F ADM Date: 12/12/20 Loc: ER Room/Bed: Attending Dr: Ordering Provider/Ordering MD: Arianna Lake Date of Service: 12/12/20 Procedure(s): XR shoulder LT min 2V* [id number] Accession Number(s): [id number] Report Number: [id number] PROCEDURE INFORMATION: Exam: XR Left Shoulder Exam date and time: 12/12/2020 12:30 PM Age: 80 years old Clinical indication: Injury or trauma; Fall; Blunt trauma (contusions or hematomas); Shoulder; Left TECHNIQUE: Imaging protocol: XR Left shoulder. Views: 2 or more views. COMPARISON: CR XR elbow LT min 3V* [id number] 09/13/2020 11:14 AM FINDINGS: Bones/joints: There is a transverse displaced fracture of the surgical neck of the humerus. A chronic fracture deformity is seen in the midshaft left clavicle. No glenohumeral joint dislocation is seen. Soft tissues: Unremarkable. XR/XR shoulder LT min 2V* [id number] IMPRESSION: 1. Displaced fracture surgical neck of the humerus. 2. Chronic fracture left midshaft clavicle 3. Otherwise negative examination. Dictated By: Leon Botello Signed By: Leon Botello Signed Date/Time: 12/12/201358 DD/ 1357 Discharge Plan Discharge Patient Disposition: Home Clinical Impression: Closed fracture of surgical neck of humerus Qualifiers: Encounter type: initial encounter Fracture morphology: unspecified fracture morphology Fracture alignment: displaced Laterality: left Qualified Code(s): S42.212A - Unspecified displaced fracture of surgical neck of left humerus, initial encounter for closed fracture Condition: Stable Prescriptions: New hydrocodone-acetaminophen 5-325 mg tablet 1 tab PO Q4H PRN (Reason: pain) Qty: 20 RF: 0 No Action clopidogrel [Plavix] 75 mg tablet 75 mg PO DAILY@0800 RF: 0 metoprolol succinate 200 mg tablet extended release 24 hr 200 mg PO BEDTIME@2200 RF: 0 enalapril maleate 20 mg tablet 20 mg PO BID@0800,2200 RF: 0 amlodipine [Norvasc] 10 mg tablet 10 mg PO DAILY@0800 RF: 0 famotidine 40 mg tablet 40 mg PO DAILY@0800 RF: 0 aspirin [Adult Low Dose Aspirin] 81 mg tablet,delayed release (DR/EC) 81 mg PO DAILY@0800 RF: 0 nitrofurantoin monohyd/m-cryst [Macrobid] 100 mg capsule 100 mg PO Q12H 7 Days Qty: 14 RF: 0 hydrocodone-acetaminophen 5-325 mg tablet 1 tab PO Q6H PRN (Reason: pain) 7 Days Qty: 40 RF: 0 diazepam [Valium] 5 mg tablet 5 mg PO ONCE Qty: 1 RF: 0 alprazolam 0.5 mg tablet 0.5 mg PO DAILY Qty: 1 RF: 0 clonazepam 0.5 mg tablet 0.5 mg PO BID@0800,2200 RF: 0 tramadol 50 mg tablet 50 mg PO QID PRN (Reason: Pain) RF: 0 simvastatin 20 mg tablet 20 mg PO DAILY@0800 RF: 0 amitriptyline 100 mg tablet 100 mg PO BEDTIME@2200 PRN (Reason: unknown) RF: 0 PNV cmb#95-ferrous fumarate-FA [] 28 mg iron- 800 mcg Tablet 1 tab PO DAILY@0800 RF: 0 Discharge Orders: Discharge ED (Routine); Ordered 12/12/20 Ordered By: Arianna Lake Referrals: Primo Dunlap MD [Primary Care Provider] - Patient Instructions: Fractures - Humerus, Arm Fracture in Adults (ED) Activity Restrictions/Additional Instructions: As discussed case management will get you set up to see orthopedics as soon as possible. Please stay in your sling at all times apart from bathing. You may apply ice to the shoulder for 15-20 minutes every other hour to help with swelling. Pain medications may be used for severe pain. Coding Level of Care Code ED Business Solution Analyst for Denise 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
--- NOTE | 2020-12-12 15:10 | DCPLANNER ---
Addendum entered by Cheyenne Felipe 12/13/20 09:05: Patient has a follow up appointment scheduled for Monday, December 14, 2020 at 9:[address] Shelby at the ortho clinic. motor hotel manager informed the ER physician, of the scheduled appointment. Appointment information was added to patients discharge paperwork. Patient is aware of appointment. Original Note: motor hotel manager was asked to schedule a follow up appointment for patient with ortho. motor hotel manager called the ortho clinic, spoke with Rosetta, gave clinic patients information. motor hotel manager was told that patients information would be printed and reviewed. Clinic will call patient with appointment information.
[2020-12-12 15:22] VITALS: RESP 18; O2SAT 96
[2020-12-12] MEDS: morphine 4 mg/mL SDV 1 mL IM (15:22)
[2020-12-12] MEDS: ondansetron 2 mg/ML SDV 2 mL 4 MG IM (15:23)
[2020-12-12 15:55] VITALS: BP 115/75; PULSE 89; RESP 18; TEMP 36.8; O2SAT 96
--- NOTE | 2021-01-12 11:07 | DCPLANNER ---
Patient had a follow up appointment scheduled for 12.14.20 with ortho - patient did attend appointment.
== END 2020-12-12 15:55 | disposition home or self-care (01) ==
PROVIDERS: Emergency Provider Physician Assistant; PCP Family Medicine
DX: S42.212A Unspecified displaced fracture of surgical neck of left humerus, initial encounter for closed fracture (principal); Z79.02 Long term (current) use of antithrombotics/antiplatelets; Z79.82 Long term (current) use of aspirin; E78.5 Hyperlipidemia, unspecified; I10 Essential (primary) hypertension; Z87.891 Personal history of nicotine dependence; W01.0XXA Fall on same level from slipping, tripping and stumbling without subsequent striking against object, initial encounter
CPT/HCPCS: 73030; 73060; 96372; 96374; 96375; 99283; J2270; J2405

== ENCOUNTER → 2020-12-14 08:59 | Outpatient (BNVA) | payer MEDICARE, MEDICAID, SELFPAY | PROVIDERS: PCP Family Medicine; Visit Provider Specialist | DX: S42.212A Unspecified displaced fracture of surgical neck of left humerus, initial encounter for closed fracture (principal); X58.XXXA Exposure to other specified factors, initial encounter | CPT/HCPCS: 73030 ==

== ENCOUNTER → 2021-01-02 13:47 | Outpatient (BNVA) | payer MEDICARE, MEDICAID, SELFPAY | PROVIDERS: PCP Family Medicine; Visit Provider Specialist | DX: S42.212D Unspecified displaced fracture of surgical neck of left humerus, subsequent encounter for fracture with routine healing (principal); X58.XXXD Exposure to other specified factors, subsequent encounter | CPT/HCPCS: 73030 ==

== ENCOUNTER → 2021-02-01 11:09 | Outpatient (BNVA) | payer MEDICARE, MEDICAID, SELFPAY | PROVIDERS: PCP Family Medicine; Visit Provider Specialist | DX: S42.212D Unspecified displaced fracture of surgical neck of left humerus, subsequent encounter for fracture with routine healing (principal); X58.XXXD Exposure to other specified factors, subsequent encounter | CPT/HCPCS: 73030 ==

== ENCOUNTER → 2021-03-09 13:33 | Outpatient (BNVA) | payer MEDICARE, MEDICAID, SELFPAY | PROVIDERS: PCP Family Medicine; Visit Provider Orthopaedic Surgery | DX: S32.010A Wedge compression fracture of first lumbar vertebra, initial encounter for closed fracture (principal); X58.XXXA Exposure to other specified factors, initial encounter | CPT/HCPCS: 72110 ==

== ENCOUNTER 2021-03-27 13:26 | Outpatient (CLI) | payer MEDICARE, MEDICAID, SELFPAY ==
--- NOTE | 2021-03-27 13:45 | MR_ITS ---
WS: [id number] MRI LUMBAR SPINE NONCONTRAST TECHNIQUE: Sagittal T1, T2 and STIR imaging. Axial T1 and T2 imaging. CLINICAL INFORMATION: S32.010A - Wedge compression fracture of first lumbar vertebra, initial encount er for closed fracture COMPARISON: CT April 12, 2020 FINDINGS: Mild lumbar curve. Chronic compression with anterior wedging L1 vertebral body unchanged since 2020. Mild compression fracture superior endplate L3 is new since April 12, 2020. Loss of approximately 20% vertebral body height. Trace edema in the superior endplate. Findings have a chronic appearance. L1-L2: Mild disc bulging with moderate central canal stenosis. Narrowing of the subarticular recess b ilaterally. Moderate facet arthropathy. Mild bilateral foraminal narrowing right greater than left. L2-L3: Mild disc bulging with severe central canal stenosis. Moderate facet arthropathy with ligamen ambrose flavum hypertrophy. Mild to moderate bilateral foraminal narrowing. L3-L4: Mild disc bulging with moderate central canal stenosis. Moderate facet arthropathy and ligamen ambrose flavum hypertrophy. Mild right foraminal narrowing. L4-L5: Mild disc bulging with narrowing of the subarticular recess bilaterally. Mild central canal st enosis. Small left foraminal protrusion with mild left foraminal narrowing. L5-S1: Mild annular bulging. Slight impingement traversing S1 nerve roots bilaterally. Foramen and sp inal canal are patent. Moderate facet arthropathy. Visualized pelvic bony structures: Normal. Paravertebral soft tissues: Normal. Moderate thoracic kyphosis. MR/MR lumbar spine wo con* [id number] IMPRESSION: 1. Chronic compression of the L1 and L3 superior endplates. No significant ret ropulsion. 2. Moderate to severe central canal stenosis L2-3 due to disc bulging with fac et arthropathy and ligamentum flavum hypertrophy. 3. Mild central canal stenosis L1-2 and moderate central canal stenosis L3-4. 4. Mild central canal stenosis L4-5 with impingement traversing L5 nerve roots bilaterally. 5. Mild to moderate bilateral L2-3 and right L3-4 foraminal narrowing. 6. Moderate to advanced facet arthropathy throughout the lumbar spine.
== END 2021-03-27 13:27 | disposition home or self-care (01) ==
PROVIDERS: PCP Family Medicine; Visit Provider Orthopaedic Surgery
DX: S32.010A Wedge compression fracture of first lumbar vertebra, initial encounter for closed fracture (principal); S32.030A Wedge compression fracture of third lumbar vertebra, initial encounter for closed fracture; X58.XXXA Exposure to other specified factors, initial encounter; M48.061 Spinal stenosis, lumbar region without neurogenic claudication; M47.816 Spondylosis without myelopathy or radiculopathy, lumbar region
CPT/HCPCS: 72148

== ENCOUNTER → 2021-07-27 10:44 | Outpatient (BNVA) | payer MEDICARE, MEDICAID, SELFPAY | PROVIDERS: PCP Family Medicine; Visit Provider Orthopaedic Surgery | DX: M54.50 Low back pain, unspecified (principal) | CPT/HCPCS: 72100 ==

== ENCOUNTER → 2021-08-29 09:36 | Outpatient (BNVA) | payer MEDICARE, MEDICAID, SELFPAY | PROVIDERS: PCP Family Medicine; Visit Provider Orthopaedic Surgery | DX: S32.010A Wedge compression fracture of first lumbar vertebra, initial encounter for closed fracture (principal); W19.XXXA Unspecified fall, initial encounter; M48.062 Spinal stenosis, lumbar region with neurogenic claudication | CPT/HCPCS: 99214 ==

== ENCOUNTER 2022-06-10 13:03 | Inpatient (IN) | payer MEDICARE, MEDICAID, SELFPAY ==
[2022-06-10] VITALS (80 sets, daily range): BP systolic 91–173; BP diastolic 51–132; PULSE 94–117; RESP 13–34; TEMP 36.3–37.4; O2SAT 88–100; BMI 25.8; BMI 26.9
--- NOTE | 2022-06-10 13:19 | XRR_ITS ---
PROCEDURE INFORMATION: Exam: XR Abdomen Exam date and time: 06/10/2022 1:30 PM Age: 81 years old Clinical indication: Abdominal tenderness and mass, lump, or swelling; Luq; Additional info: Abd pain TECHNIQUE: Imaging protocol: Radiologic exam of the abdomen. Views: Frontal supine view of the abdomen. 1 View. COMPARISON: CR XR lumbar spine 2-3V* [id number] 07/27/2021 10:51 AM FINDINGS: Gastrointestinal tract: Ingested contents are present in the stomach fundus projecting in the left upper quadrant. There is no evidence of bowel obstruction or dilatation. Bones/joints: Unremarkable. XR/XR KUB portable [id number] IMPRESSION: There is a prominent amount of ingested contents in the fundus of the stomach in the left upper quadrant. No other acute abnormalities are seen.
--- NOTE | 2022-06-10 13:19 | XRR_ITS ---
PROCEDURE INFORMATION: Exam: XR Chest Exam date and time: 06/10/2022 1:34 PM Age: 81 years old Clinical indication: Shortness of breath; Additional info: Abd pain TECHNIQUE: Imaging protocol: Radiologic exam of the chest. Views: 1 view. COMPARISON: CR XR chest 2V* [id number] 04/23/2016 3:46 PM FINDINGS: Lungs: Benign calcified granulomas present in the right lung base. Otherwise lungs are clear. Pleural spaces: Unremarkable. No pleural effusion. No pneumothorax. Heart/Mediastinum: Unremarkable. No cardiomegaly. Bones/joints: Old bilateral humeral neck fractures. Soft tissues: Surgical clips are present in the right breast and axilla. XR/XR chest 1V portable [id number] IMPRESSION: No significant cardiopulmonary abnormality.
--- NOTE | 2022-06-10 13:22 | W.ED.GIBLEED ---
HPI - GI Bleed General: Chief complaint: GI Bleed Stated complaint: GI BLEED; SOB Time Seen by Provider: 06/10/22 13:05 Source: patient and EMS Mode of arrival: EMS Limitations: no limitations History of Present Illness: See nursing assessment. Patient states that she started having black stool and hematemesis and slight coffee-ground emesis today. She also started having epigastric mirlande pain today. She denies any fever. Possible history includes hypertension, chronic back pain, lumbar compression fractures, irregular heart rhythm not otherwise specified. She denies any previous coronary artery disease or stents. She denies any peptic ulcer disease. Patient is unclear on her surgical history. She states she had a mass removed from the superpubic area about 50 years ago. She is not sure exactly what that entailed. She states she is quit smoking and drinking alcohol about 30 years ago. Patient does live at home. She is on Plavix for irregular heartbeat . Associated symptoms: Reports abdominal pain, nausea and vomiting; Denies chills, fever(s), headache(s) or rash Review of Systems Const: Denies: fever(s) or chills Eyes: Denies: change in vision ENMT: Denies: throat pain Card: Denies: chest pain or palpitations Resp: Denies: dyspnea or wheezing GI: Reports: abdominal pain, nausea, vomiting, hematemesis, coffee ground emesis, hematochezia and melena : Denies: flank pain Musc: Denies: neck pain or back pain Skin/Breast: Denies: rash or pruritus Neuro: Denies: headache(s) or numbness in extremities Psych: Denies: anxiety Joni/Lymph: Denies: enlarged lymph nodes PFSH ED PFSH: Medical History (Updated 06/10/22 @ 14:57 by Madhu Acosta MD) Anxiety Dyslipidemia Essential (primary) hypertension GERD (gastroesophageal reflux disease) Vitamin D deficiency Surgical History History of appendectomy History of cholecystectomy History of hysterectomy History of lumpectomy of both breasts Total knee replacement status LEFT Family History Brother Cancer Social History (Reviewed 06/10/22 @ 13:27 by TL Lopez Smoking and tobacco status: never smoked Quit status (tobacco): has quit using tobacco Second hand smoke exposure: No Smoking risk assessment/counseling performed?: No Alcohol intake: never Desire information about alcohol rehabilitation?: No Counseling given: No Desire information about substance/drug rehabilitation?: No Counseling given: No Caregiver/support person: No Lives independently: Yes Household members: spouse Housing: House Marital status: service: No Current occupational status: retired History of recent travel: No Current gender identity: Female Physical Exam Const: COMMON NORMALS: patient oriented x3, no limitations and well nourished GENERAL APPEARANCE: cooperative OTHER: Mild malaise Telemetry shows heart rate of 103 sinus tachycardia. Blood pressure 91/51. HENMT: COMMON NORMALS: normocephalic and atraumatic HEAD & SCALP: normocephalic and atraumatic FACE & SINUS: normal facial exam Eye: COMMON NORMALS: EOMs intact bilaterally Neck/C-Spine: COMMON NORMALS: full ROM, no lymphadenopathy, supple and no meningeal signs GENERAL: Yes normal visual inspection Lymph: LYMPHATIC: no lymphadenopathy noted Chest: COMMONS NORMALS: normal inspection of the chest and normal palpation of entire chest wall CHEST: No Ecchymosis present and No rash Resp: COMMON NORMALS: normal respiratory effort, No retractions and clear to auscultation bilaterally EFFORT & INSPECTION: No respiratory distress AUSCULTATION: clear to auscultation bilaterally Cardio: COMMON NORMALS: regular rhythm and Peripheral pulses 2+ throughout JUGULAR VENOUS DISTENTION: no JVD RATE: tachycardic RHYTHM: regular rhythm PERIPHERAL PULSES: Peripheral pulses 2+ throughout GI: COMMON NORMALS: Soft to palpation and No hepatosplenomegaly present INSPECTION: No abdominal wall ecchymosis AUSCULTATION: Yes normoactive bowel sounds PALPATION: Yes Soft to palpation, Yes Tenderness to palpation present (GI) (Moderate epigastric), Yes No hepatosplenomegaly present, No Hernia present, No Palpable mass present, No Pulsatile mass present and No Abdominal wall crepitus present PERCUSSION: normal to percussion RECTAL EXAM: visual inspection normal OTHER: Patient has dark stool. No rectal masses. No rectal foreign bodies. Nurse attended exam. : COMMON NORMALS: Yes no CVA tenderness BLADDER/KIDNEY EXAM: Yes no CVA tenderness EXTERNAL FEMALE EXAM: No Hernia present Back/Pelvis: COMMON NORMALS: no CVA tenderness Extremity: COMMON NORMALS: normal to inspection, full ROM and capillary refill normal Neuro: COMMON NORMALS: patient oriented x3, CN's II-XII intact bilaterally, no focal motor deficits and no sensory deficits noted MENINGEAL SIGNS: Yes no meningeal signs Psych: COMMON NORMALS: mental status grossly normal and Normal thought process present THOUGHT PROCESS: Normal thought process present Skin: COMMON NORMALS: no rashes or lesions noted and no wounds GENERAL SKIN EXAM: no rashes or lesions noted OTHER: Pale Course Vital Signs: Vital signs: Vital Signs Temperature 97.9 F 06/10/22 13:04 Pulse Rate 96 06/10/22 14:40 Respiratory Rate 18 06/10/22 14:40 Blood Pressure 113/98 06/10/22 14:40 Pulse Oximetry 100 06/10/22 14:40 Oxygen Delivery Me thod 06/10/22 14:40 Oxygen Flow Rate 2 06/10/22 14:40 MDM - GI Bleed Medical Decision Making Upper gastrointestinal hemorrhage. Symptomatic anemia Case discussed with hospitalist Dr. Dias. Will admit patient to ICU. Patient is a full code. He asked that I consult Dr. Nickerson general surgery. I discussed case with Dr. Nickerson. He asked the patient continue Protonix. He asked that I start oral Carafate also. He will see the patient in consultation. Lab Data 06/10/22 13:40 06/10/22 13:40 Radiology Impressions Chest X-Ray 06/10/22 13:19 IMPRESSION: No significant cardiopulmonary abnormality. KUB X-Ray 06/10/22 13:19 IMPRESSION: There is a prominent amount of ingested contents in the fundus of the stomach in the left upper quadrant. No other acute abnormalities are seen. Laboratory Results WBC 12.6 10^3/uL (4.0-10.0) H 06/10/22 13:40 RBC 2.69 10^6/uL (4.1-5.3) L 06/10/22 13:40 Hgb 7.9 g/dL (11.5-15.3) L 06/10/22 13:40 Hct 25.6 % (37.0-47.0) L 06/10/22 13:40 MCV 95.2 fl (81-99) 06/10/22 13:40 MCH 29.4 pg (28.0-34.0) 06/10/22 13:40 MCHC 30.9 g/dL (30.0-36.0) 06/10/22 13:40 RDW 13.2 % (12.1-15.1) 06/10/22 13:40 Plt Count 205 10^3/cmm (130-400) 06/10/22 13:40 MPV 10.8 fL (7.4-10.4) H 06/10/22 13:40 Neut % (Auto) 83.6 % 06/10/22 13:40 Lymph % (Auto) 13.1 % 06/10/22 13:40 Trinity % (Auto) 2.1 % 06/10/22 13:40 Eos % (Auto) 0.0 % 06/10/22 13:40 Baso % (Auto) 0.2 % 06/10/22 13:40 Neut # (Auto) 10.54 10^3/uL (1.8-7.7) H 06/10/22 13:40 Lymph # (Auto) 1.7 10^3/uL (0.8-4.8) 06/10/22 13:40 Trinity # (Auto) 0.3 10^3/uL (0.2-0.9) 06/10/22 13:40 Eos # (Auto) 0.0 10^3/uL (0.0-0.8) 06/10/22 13:40 Baso # (Auto) 0.0 10^3/uL (0.0-0.1) 06/10/22 13:40 Nucleated RBC % (auto) 0 % 06/10/22 13:40 Nucleated RBCs # 0.0 /100WBC 06/10/22 13:40 PT 14.50 SECONDS (12.1-14.9) 06/10/22 13:40 INR 1.10 (0.8-1.2) 06/10/22 13:40 APTT 22.7 SECONDS (23.9-36.7) L 06/10/22 13:40 Sodium 139 mmol/L (136-145) 06/10/22 13:40 Potassium 5.0 mmol/L (3.5-5.1) 06/10/22 13:40 Chloride 106 mmol/L (98-107) 06/10/22 13:40 Carbon Dioxide 23 mmol/L (22-29) 06/10/22 13:40 Anion Gap 15.0 (5-19) 06/10/22 13:40 BUN 69 mg/dL (8-23) H 06/10/22 13:40 Creatinine 0.9 mg/dL (0.5-0.9) 06/10/22 13:40 GFR Calculation Not Reportable 06/10/22 13:40 Glucose 149 mg/dL (65-115) H 06/10/22 13:40 Calculated Osmolality 311 mOsm/kg (285-295) H 06/10/22 13:40 Calcium 8.5 mg/dL (8.5-10.5) 06/10/22 13:40 Total Bilirubin 0.2 mg/dL (0.15-1.2) 06/10/22 13:40 AST 11 U/L (0-32) 06/10/22 13:40 ALT 10 U/L (0-33) 06/10/22 13:40 Alkaline Phosphatase 64 U/L (35-105) 06/10/22 13:40 Total Protein 5.2 g/dL (6.6-8.7) L 06/10/22 13:40 Albumin 3.5 g/dL (3.5-5.2) 06/10/22 13:40 Globulin 1.7 g/dL (1.3-4.6) 06/10/22 13:40 Lipase 21 U/L (13-60) 06/10/22 13:40 Stool Occult Blood Positive (Negative) H 06/10/22 13:18 Blood Type A Positive 06/10/22 13:40 Rho(D) Type Positive 06/10/22 13:40 Antibody Screen Negative 06/10/22 13:40 Crossmatch See Detail 06/10/22 13:40 Imaging Data CXR: I personally reviewed and interpreted this imaging study as follows: My impression: Nothing acute. No effusions or infiltrates. No free air under the diaphragm. No pneumothorax. KUB: I personally reviewed and interpreted this imaging study as follows: My impression: Patient with moderate amount of stool. No obstruction. No free air. EKG Data EKG 1: I personally reviewed and interpreted this EKG as follows: EKG interpretation date: 06/10/22 EKG interpretation time: 13:30 Prior EKG tracings: not available for review Interpretation: Impression sinus tachycardia with heart rate of 105. Normal axis. Normal QRS. Normal T waves, normal P waves. Normal OK interval, normal QT interval. Normal ST segment. Critical Care Time Critical Care Time: Critical Care Time: Yes Total Critical Care Time: 65 Attestation: See orders. Blood transfusion. Consultation with hospitalist and general surgeon. Discharge Plan Discharge Patient Disposition: Admitted As Inpatient Clinical Impression: Upper gastrointestinal hemorrhage, Acute blood loss anemia, Melena, Abdominal pain, acute, epigastric Condition: Stable Coding Level of Care Code ED Brake Specialist for Chg Fwd History Comprehensive Exam Comprehensive Medical Decision Making High Complexity
--- NOTE | 2022-06-10 13:29 | ECG_ITS ---
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 Measurements Intervals [place] Rate: 105 P: 46 HI: 169 QRS: 44 QRSD: 92 T: 26 QT: 342 QTc: 454 Interpretive Statements SINUS TACHYCARDIA ABNORMAL RHYTHM ECG No previous ECG available for comparison Electronically Signed On 06-10-2022 16:03:38 FILTER PRESS SUPERVISOR by Trent Yeboah M.D. [id number]
[2022-06-10 13:37] LABS: Occult Blood Stool Positive (Negative)
[2022-06-10 14:04] LABS: Basophils % 0.2 %; Hematocrit 25.6 % (37.0-47.0); Hemoglobin 7.9 g/dL (11.5-15.3); Lymphocytes # 1.7 10^3/uL (0.8-4.8); Lymphocytes % 13.1 %; Mean Corpuscular HGB Conc 30.9 g/dL (30.0-36.0); Mean Corpuscular Hemoglobin 29.4 pg (28.0-34.0); Mean Corpuscular Volume 95.2 fl (81-99); Mean Platelet Volume 10.8 fL (7.4-10.4); Monocytes # 0.3 10^3/uL (0.2-0.9); Monocytes % 2.1 %; Neutrophils # 10.54 10^3/uL (1.8-7.7); Neutrophils % 83.6 %; Nucleated Red Blood Cells % 0 %; Platelet Count 205 10^3/cmm (130-400); Red Blood Count 2.69 10^6/uL (4.1-5.3); Red Cell Distribution Width 13.2 % (12.1-15.1); White Blood Count 12.6 10^3/uL (4.0-10.0)
[2022-06-10] MEDS: ondansetron 2 mg/ML SDV 2 mL 4 MG IVP (14:11)
[2022-06-10] MEDS: sodium chloride 0.9% 500 ML IV (14:11)
[2022-06-10] MEDS: pantoprazole 40 mg SDV 80 MG IVP (14:11)
[2022-06-10] MEDS: pantoprazole 40 MG in sodium chloride 0.9% (plus) 100 ML 20 MG IV (14:12)
[2022-06-10 14:18] LABS: Partial Thromboplastin Time 22.7 SECONDS (23.9-36.7)
[2022-06-10 14:24] LABS: Alanine Aminotransferase 10 U/L (0-33); Albumin Level 3.5 g/dL (3.5-5.2); Alkaline Phosphatase 64 U/L (35-105); Aspartate Amino Transferase 11 U/L (0-32); Blood Urea Nitrogen 69 mg/dL (8-23); Calcium 8.5 mg/dL (8.5-10.5); Carbon Dioxide 23 mmol/L (22-29); Chloride 106 mmol/L (98-107); Globulin 1.7 g/dL (1.3-4.6); Glucose 149 mg/dL (65-115); Lipase 21 U/L (13-60); Osmolality Calculated 311 mOsm/kg (285-295); Sodium 139 mmol/L (136-145); Total Bilirubin 0.2 mg/dL (0.15-1.2); Total Protein 5.2 g/dL (6.6-8.7)
--- NOTE | 2022-06-10 15:05 | P.HP_ITS ---
Providers/Chief Complaint Primary Care Provider: Primo Dunlap MD Chief Complaint: GI BLEED; SOB History of Present Illness Didi Victoria is a 81 year old female who woke up today with feeling of nausea. She started experiencing hematemesis, hemoptysis, felt extremely weak and passed out in her bed room. She got up in order to go in her bed but felt more sick to her stomach, tried to call her who could not hear, she got up and went to the bathroom, she vomited large amount of blood with clots, her daughter also noticed that the sink was full of blood and there was maroon- colored stool. In the ER she has been diagnosed with anemia, 1 unit PRBC requested, Dr. Nickerson consulted, CT a abdomen pelvis was requested to see if he is profusely bleeding because significant anemia however it showed pulmonary embolism and possibility for breast cancer She will be admitted to ICU Review of Systems Const: Reports: chills and body aches Eyes: Denies: change in vision ENMT: Denies: throat pain Card: Denies: chest pain Resp: Reports: dyspnea GI: Reports: abdominal pain, nausea, vomiting and hematochezia : Denies: flank pain Musc: Denies: neck pain Skin/Breast: Denies: rash Neuro: Denies: headache(s) Psych: Reports: anxiety Endo: Denies: polyuria Joni/Lymph: Denies: easy bruising All/Imm: Denies: urticaria Medications/Allergies Home Medications Medication Instructions Recorded Confirmed Last Taken Type aspirin 81 mg tablet,delayed 81 mg PO DAILY@0800 08/12/19 06/10/22 06/10/22 History release (Adult Low Dose Aspirin) famotidine 40 mg tablet 40 mg PO DAILY@0800 08/12/19 06/10/22 06/10/22 History vit no.95-ferrous 1 tab PO DAILY@0800 02/13/20 06/10/22 06/10/22 History fumarate 28 mg-folic acid 800 mcg tablet () simvastatin 20 mg tablet 20 mg PO DAILY@0800 02/13/20 06/10/22 06/10/22 History tramadol 50 mg tablet 50 mg PO QID PRN Pain 02/13/20 06/10/22 06/12/20 History collar and cuff #1 ea 12/14/20 06/10/22 Unknown Rx amlodipine 10 mg tablet (Norvasc) 10 mg PO DAILY@0800 #30 tabs 03/21/22 06/10/22 06/10/22 Rx enalapril maleate 20 mg tablet 20 mg PO BID@0800,2200 #60 tabs 03/21/22 06/10/22 06/10/22 Rx metoprolol succinate 200 mg 200 mg PO BEDTIME@2200 #30 tabs 03/21/22 06/10/22 06/09/22 Rx tablet,extended release 24 hr amitriptyline 100 mg tablet 100 mg PO BEDTIME@2200 06/10/22 06/10/22 06/09/22 History clonazepam 0.5 mg tablet 0.5 mg PO BID@0800,2200 PRN Anxiety 06/10/22 06/10/22 Unknown History clopidogrel 75 mg tablet 75 mg PO DAILY 06/10/22 06/10/22 06/10/22 History Allergies Allergy/AdvReac Type Severity Reaction Status Date / Time No Known Allergies Allergy Verified 08/29/21 11:04 PFSH Acute PFSH: Medical History (Updated 06/10/22 @ 19:20 by Gonzalo Dias MD) Anxiety Dyslipidemia Essential (primary) hypertension GERD (gastroesophageal reflux disease) Vitamin D deficiency Surgical History History of appendectomy History of cholecystectomy History of hysterectomy History of lumpectomy of both breasts Total knee replacement status LEFT Family History Brother Cancer Social History Smoking and tobacco status: never smoked Quit status (tobacco): has quit using tobacco Second hand smoke exposure: No Smoking risk assessment/counseling performed?: No Alcohol intake: never Desire information about alcohol rehabilitation?: No Counseling given: No Desire information about substance/drug rehabilitation?: No Counseling given: No Caregiver/support person: No Lives independently: Yes Household members: spouse Housing: House Marital status: service: No Current occupational status: retired History of recent travel: No Current gender identity: Female Vitals/I&O/Wt Last Vital Signs Temp 97.9 F 06/10/22 13:04 Pulse 96 06/10/22 14:40 Resp 18 06/10/22 14:40 BP 113/98 06/10/22 14:40 Pulse Ox 100 06/10/22 14:40 O2 Del Method 06/10/22 14:40 O2 Flow Rate 2 06/10/22 14:40 Weight last 48 hrs Weight 72.575 kg Physical Exam Narrative: Patient is very pleasant and cooperative Euvolemic Pale complexion S1, S2 Currently on 2 L Saturating 98% Abdomen soft No audible stridor or wheezing Pleasant and cooperative Nonfocal neuro exam GCS 15 EOMI, PERRLA Data 06/10/22 13:40 06/10/22 13:40 A&P Assessment and plan (1) Upper gastrointestinal hemorrhage: (2) Acute blood loss anemia: (3) Melena: (4) Hemoptysis: (5) Pulmonary emboli: Plan 81-year-old female who takes aspirin and Plavix presenting with chief complaint of melanotic stools hemoptysis Acute on chronic GI blood loss anemia Patient is also experiencing hemoptysis Dr. Nickerson consulted N.p.o. Protonix 40 mg twice daily We will give her blood transfusion Check H&H this evening Admit to ICU Full code CT scan findings consistent with PE, changes related to breast cancer, patient has not endorsed any previous history of cancer, previous colonoscopies were unremarkable as per the patient She has been persistent with her aspirin and Plavix for cva in the past In case of recurrent hemoptysis will need bronchoscopy pulmonary consult Attestations Medical Necessity Statement*: More than 2 midnights anticipated Time Spent in Patient Care: 40 Coding Level of Care Code Acute Code for Chg Fwd Diagnoses Upper gastrointestinal hemorrhage K92.2 Acute blood loss anemia D62 Melena K92.1 Hemoptysis R04.2 Pulmonary emboli I26.99
--- NOTE | 2022-06-10 15:31 | CTR_ITS ---
PROCEDURE INFORMATION: Exam: CTA Abdomen and Pelvis With Contrast Exam date and time: 06/10/2022 4:39 PM Age: 81 years old Clinical indication: Shortness of breath and other: Vomiting blood; Prior surgery; Surgery type: Appy, gb, hyst; Additional info: Acute upper gi hemorrhage, call results to Dr. Dias TECHNIQUE: Imaging protocol: Computed tomographic angiography of the abdomen and pelvis with contrast. 3D rendering (Not supervised by radiologist): MIP and/or 3D reconstructed images were created by the technologist. Radiation optimization: All CT scans at this facility use at least one of these dose optimization techniques: automated exposure control; mA and/or kV adjustment per patient size (includes targeted exams where dose is matched to clinical indication); or iterative reconstruction. Contrast material: OMNI 350; Contrast volume: 100 ml; Contrast route: INTRAVENOUS (IV); COMPARISON: CR (ABDOMEN, ) 06/10/2022 1:30 PM RADIATION DOSE METRICS: Total DLP (mGy-cm): 636.58 FINDINGS: Lungs: There are small filling defects within pulmonary artery branches of the right lower lobe. Calcified granulomas in the right lung base. Aorta: Calcified plaque in the abdominal aorta. No aneurysm or dissection. 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 Renal arteries: Calcified plaque with mild stenoses in the proximal bilateral renal arteries. Right iliac arteries: Calcified plaque in the right iliac arteries with no significant stenosis. Left iliac arteries: Calcified plaque in the left iliac arteries with no significant stenosis. Liver: No mass. Gallbladder and bile ducts: Cholecystectomy. Prominence of the extrahepatic bile ducts is consistent with reservoir effect. Pancreas: Unremarkable. No mass. No ductal dilation. Spleen: Calcified granulomas in the spleen. Adrenal glands: Mild fullness of the adrenal glands could represent mild hyperplasia. Kidneys and ureters: Unremarkable. No solid mass. No hydronephrosis. Stomach and bowel: Food distended stomach. No wall thickening. Mild diverticulosis of the distal colon. No diverticulitis. No active hemorrhage identified within the GI system. Appendix: The appendix is not visualized. No secondary signs of appendicitis. Intraperitoneal space: Unremarkable. No free air. No significant fluid collection. Lymph nodes: Unremarkable. No enlarged lymph nodes. Urinary bladder: Unremarkable. No mass. Reproductive: The uterus is absent. Normal ovaries. Bones/joints: Degenerative spine. L1 and L3 compression fractures. Soft tissues: Multiple masses in the left breast with calcifications. CT/CT angio abdomen pelvis [id number] IMPRESSION: 1. Pulmonary emboli in the right lower lobe. The lungs are incompletely visualized and additional emboli are not excluded. 2. No evidence for active GI hemorrhage. 3. Calcified left breast masses, suspicious for breast malignancy. Clinical correlation and follow-up with mammography and ultrasound recommended.
[2022-06-10 15:42] LABS: Lactate Dehydrogenase 151 U/L (135-214); NT Pro B Type Natriuretic Pept 349 pg/mL (0-450)
[2022-06-10] MEDS: iohexol 350 mg/mL 500 mL Btl (per mL) IV (16:50)
--- NOTE | 2022-06-10 16:55 | PC.NURSE ---
Transfer Note Patient transferred to ICU from ER via stretcher. Handoff received from MANNY King. Patient oriented to environment and equipment. Covering service notified. Orders reviewed and will continue to monitor. Family and/or client relations representative notified. Patient transferred on 2LNC and is alert/oriented x4 upon arrival to ICU. Left breast noted to have abscess on nipple, patient reports breast is tender. Patient belongings include dentures, glasses, robe and phone.
[2022-06-10] MEDS: sucralfate 1 gm/10 mL Oral Liq UDC PO (17:42)
[2022-06-10 17:45] LABS: Estmated Average Glucose 114; Hemoglobin A1C 5.6 % (4.0-6.0)
[2022-06-10 17:48] LABS: Ferritin 217 ng/mL (15-150); Thyroid Stimulating Hormone 0.66 uIU/mL (0.27-4.20); Vitamin B12 339 pg/mL (232-1245)
--- NOTE | 2022-06-10 18:08 | USR_ITS ---
PROCEDURE INFORMATION: Exam: US Duplex Lower Extremity Veins, Bilateral Exam date and time: 06/10/2022 7:22 PM Age: 81 years old Clinical indication: Condition or disease; Other: Pe; Edema, localized; Lower extremity, right TECHNIQUE: Imaging protocol: Real-time duplex ultrasound of the bilateral extremities with 2-D christensen scale, color Doppler flow and spectral waveform analysis including responses to compression and other maneuvers (when performed) with image documentation. Complete exam focused on the lower extremity veins. COMPARISON: CT angio abdomen pelvis [id number] 06/10/2022 4:39 PM FINDINGS: Right deep veins: Unremarkable. The common femoral, femoral, proximal profunda femoral and popliteal veins are patent without thrombus. Normal Doppler waveforms. Normal compressibility and/or augmentation response. Right superficial veins: Saphenofemoral junction is patent without thrombus. Left deep veins: Unremarkable. The common femoral, femoral, proximal profunda femoral and popliteal veins are patent without thrombus. Normal Doppler waveforms. Normal compressibility and/or augmentation response. Left superficial veins: Nonocclusive thrombus in the left greater saphenous vein from the distal thigh to mid calf. Soft tissues: Unremarkable. US/[place] [id number] IMPRESSION: 1. No evidence for deep vein thrombosis. 2. Nonocclusive superficial thrombus in the left greater saphenous vein from the distal thigh to mid calf.
[2022-06-10] MEDS: sodium chloride 0.9% 1,000 ML 75 ML IV (18:56)
--- NOTE | 2022-06-10 19:07 | PC.NURSE ---
Shift Note Frequent safety and comfort rounds continue. Orders and/or nursing care completed as indicated. Patient monitored for response to intervention and treatment(s). Education provided includes blood transfusion and medications. Patient and family verbalize understanding of teaching. Patient had an uneventful shift, she is alert/oriented x4 on 2LNC. IVF infusing per order please see MAR for detail. Blood transfusing per protocol please see TAR for detail. Abscess noted to left breast upon admission, no other wounds/skin issues noted at this time. Patient had one large liquid bloody bowel movement. Will continue to monitor.
[2022-06-10] MEDS: sodium chloride 0.9% 100 ML IV (19:45)
--- NOTE | 2022-06-10 20:21 | CTR_ITS ---
PROCEDURE INFORMATION: Exam: CTA Chest With Contrast Exam date and time: 06/10/2022 9:25 PM Age: 81 years old Clinical indication: Shortness of breath; Additional info: Pulmonary TECHNIQUE: Imaging protocol: Computed tomographic angiography of the chest with contrast. 3D rendering (Not supervised by radiologist): MIP and/or 3D reconstructed images were created by the technologist. Radiation optimization: All CT scans at this facility use at least one of these dose optimization techniques: automated exposure control; mA and/or kV adjustment per patient size (includes targeted exams where dose is matched to clinical indication); or iterative reconstruction. Contrast material: OMNI 350; Contrast volume: 100 ml; Contrast route: INTRAVENOUS (IV); COMPARISON: CT chest wo con [id number] 08/31/2015 10:53 AM RADIATION DOSE METRICS: Total DLP (mGy-cm): 364.76 FINDINGS: Pulmonary arteries: Normal. No pulmonary emboli. Aorta: Unremarkable. No aortic aneurysm. No aortic dissection. Lungs: Small filling defects in the pulmonary artery branches of the posterior right upper and middle lobes, and in the left upper and lower lobes. Multiple calcified granulomas in the right lung. 1.3 cm ground-glass opacity in the posterior right upper lobe, series 6, image 168. 4 mm noncalcified nodule in the right middle lobe, image 259. Dependent atelectasis in both lungs. Mild ground-glass opacities in the posterior left upper lobe. Pleural spaces: Trace right pleural effusion. No pneumothorax. Heart: The heart size is upper normal. Heart RV/LV ratio: The RV/LV ratio is 0.93. Lymph nodes: Prominent mediastinal and hilar lymph nodes, measuring up to 1.2 cm short axis. Calcified mediastinal lymph nodes. Bones/joints: Mild degenerative changes of the thoracic spine. T10 vertebral body hemangioma. No fracture. Soft tissues: Multiple calcified and noncalcified masses in the left breast, greatest in the subareolar region. CT/CT angio chest PE protcl [id number] IMPRESSION: 1. Small bilateral pulmonary emboli. No evidence for elevated right heart pressure. 2. Calcified and noncalcified masses in the left breast are suspicious for breast malignancy. Clinical correlation and follow-up with mammography and ultrasound recommended. 3. 1.3 cm ground-glass opacity in the posterior right upper lobe. This is most likely a small focus of pulmonary infarction or hemorrhage, as there are small emboli in this region. Pneumonia is not excluded. 4. 4 mm right middle lobe nodule. For patients at low risk (minimal or absent history of smoking and of other known risk factors), no routine follow-up is indicated. For patients at high risk (history of smoking or of other known risk factors), consider optional CT Chest at 12 months. (Reference: Scooter) References: Scooter Soas, et al. Guidelines for Management of Incidental Pulmonary Nodules Detected on CT Images: From the Fleischner Society 2017. Radiology. 2017;284(1):228-243.
--- NOTE | 2022-06-10 22:03 | P.PNCC_ITS ---
Critical Care Event Note The high probability of a clinically significant, sudden or life threatening deterioration of the patient's [] system(s) required my full and direct attention, intervention and personal management. The critical care time is as shown. This time is in addition to time spent performing any reported procedures but includes the following: [x] Data and vital sign review and interpretation [x] Patient assessment, examination and intervention [x] Documentation [x] Medication orders and management Critical Care Time Code activated: No Critical Care Time (min): 35 Additional information about critical care time: Patient was seen this evening, she is receiving her first unit of blood, she is received 2 L, normotensive, alert oriented x3, looks very pale, drowsy, on 2 L, she says that she wants to be transferred to a tertiary level center, -Patient was admitted for a GI bleed her CTA did not show any acute bleeding, but she is complaining of bloody and black stools also complained of hematemesis and hemoptysis -Hematemesis concerning for upper GI bleed given BUN and anemia -She also complained of hemoptysis? -ct of the chest shows 1. Small bilateral pulmonary emboli. No evidence for elevated right heart pressure. 2. Calcified and noncalcified masses in the left breast are suspicious for breast malignancy. Clinical correlation and follow-up with mammography and ultrasound recommended. 3. 1.3 cm ground-glass opacity in the posterior right upper lobe.? This is most likely a small focus of pulmonary infarction or hemorrhage, as there are small emboli in this region.? Pneumonia is not excluded. 4. 4 mm right middle lobe nodule. For patients at low risk (minimal or absent history of smoking and of other known risk factors), no routine follow-up is indicated. For patients at high risk (history of smoking or of other known risk factors), consider optional CT Chest at 12 months. (Reference: Scooter) -Given her evidence of pulmonary embolism certainly hemoptysis could be evident, -venous dvt 1. No evidence for deep vein thrombosis. 2. Nonocclusive superficial thrombus in the left greater saphenous vein from the distal thigh to mid calf. -Patient takes aspirin and Plavix I am not exactly sure why? -Given patient's complicated diagnosis, she will need multidisciplinary team including pulmonary to possibly do a bronchoscopy, GI to do an endoscopy, she also likely will require IVC filter placement, and also oncology evaluation for breast masses, not sure exactly how this is playing a role -Given the complicated patient would like to be transferred, -After discussing the risks and benefits of transfer she voiced her; all questions answered, agreed to proceed -Spoke to [facility], spoke with Dr. Beckham, patient was accepted, transferred via ground Coding Level of Care Code Acute Code for Chg Fwd
[2022-06-10 22:23] LABS: Hematocrit 22.2 % (37.0-47.0)
[2022-06-10] MEDS: sodium chloride 0.9% (100 ml) 100 ML (22:29)
[2022-06-10] MEDS: morphine 4 mg/mL SDV 1 mL 1 MG IVP (23:35)
--- NOTE | 2022-06-11 | PC.NURSE ---
Transfer Patient accepted by Dr. Beckham and received bed number 3 in medical ICU at [place], [place]. Patient and family updated in care. Family agreed to transfer; Ulises Hahn called for ground transport and accepted. MANNY Sky called for report at 1073. Ulises Hudsonell arrived for transportation and patient left unit at [id number]. Family at bedside and took all patient belongings home.
== END 2022-06-10 23:54 | disposition short-term general hospital (02) | DRG 377 ==
LOC: ER 14:57 → ICU 15:48
PROVIDERS: Family Medicine; Admitting Provider Internal Medicine; Emergency Provider Family Medicine; PCP Family Medicine; Visit Provider Internal Medicine
DX: K92.1 Melena (principal); I26.99 Other pulmonary embolism without acute cor pulmonale; I82.4Y2 Acute embolism and thrombosis of unspecified deep veins of left proximal lower extremity; K92.0 Hematemesis; D50.0 Iron deficiency anemia secondary to blood loss (chronic); I10 Essential (primary) hypertension; G89.29 Other chronic pain; M54.9 Dorsalgia, unspecified; Z87.891 Personal history of nicotine dependence; F41.9 Anxiety disorder, unspecified; E78.5 Hyperlipidemia, unspecified; K21.9 Gastro-esophageal reflux disease without esophagitis; Z96.652 Presence of left artificial knee joint; N63.20 Unspecified lump in the left breast, unspecified quadrant
CPT/HCPCS: 36415; 36430; 71045; 71275; 74018; 74174; 80053; 82270; 82607; 82728; 83036; 83615; 83690; 83880; 84443; 85014; 85018; 85025; 85610; 85730; 86850; 86900; 86920; 93005; 93970; 96365; 96375; 99285; C9113; J2270; J2405; J3411; J7030; J7040; P9016; Q9967

== ENCOUNTER 2022-10-10 09:53 | Outpatient (CLI) | payer MEDICARE, MEDICAID, SELFPAY ==
--- NOTE | 2022-10-10 10:11 | MR_ITS ---
WS: [id number] EXAMINATION: MR shoulder LT wo con* [id number] ORDER DATE: 10/10/2022 11:32 AM COMPARISON: None. HISTORY: ADHESIVE CAPSULITIS OF L SHOULDER CONTRAST: None. TECHNIQUE: Axial T2 STAR, coronal proton density fat sat, sagittal T2 fat sat, sagittal proton densit y fat sat, axial proton density fat sat, coronal T2 fat sat, and coronal T1 performed. After contrast , axial T1 fat sat, coronal T1 fat sat, and sagittal T1 fat sat were performed. FINDINGS: Chronic impacted fracture deformity involving the LEFT humeral head and neck. Healed mid shaft fractu re clavicle. Flattening of the humeral head. Advanced narrowing of the glenohumeral joint. Hypertroph ic spurring along the humeral neck. Marked narrowing of the subacromial space with high riding jeanette l head. Diffuse abnormal T2 signal abnormality involving the humeral head and neck suspicious for avascular n ecrosis. This involves medial aspect of the humeral head and partially abuts the glenoid articular mcmillan rface. Chronic thinning of the distal supraspinatus which appears intact. Infraspinatus appears intact. Norm al teres minor and subscapularis. Tiny biceps tendon within the bicipital groove. Small intra-articul ar biceps tendon. Small visualized joint capsule with synovial thickening axillary recess. This can be seen with adhesi ve capsulitis in appropriate clinical setting. MR/MR shoulder LT wo con* [id number] IMPRESSION: 1. Diffuse T2 signal abnormality involving the chronic fracture deformity christiana ral head and neck suspicious for avascular necrosis. Recommend orthopedic consu ltation. 2. Visually small joint capsule suspicious for adhesive capsulitis. 3. Thinning of the distal supraspinatus with marked narrowing of the subacromi al space. High riding humeral head. 4. Rotator cuff appears intact.
== END 2022-10-10 09:54 | disposition home or self-care (01) ==
PROVIDERS: PCP Internal Medicine; Visit Provider Internal Medicine
DX: M75.02 Adhesive capsulitis of left shoulder (principal)
CPT/HCPCS: 73221

== ENCOUNTER → 2022-11-26 11:42 | Outpatient (BNVA) | payer MEDICARE, MEDICAID, SELFPAY | PROVIDERS: PCP Internal Medicine; Visit Provider Family Medicine | DX: D64.9 Anemia, unspecified (principal); M25.511 Pain in right shoulder | CPT/HCPCS: 85025 ==

== ENCOUNTER → 2022-12-12 14:33 | Outpatient (BNVA) | payer MEDICARE, MEDICAID, SELFPAY | PROVIDERS: PCP Internal Medicine; Visit Provider Internal Medicine Cardiovascular Disease | DX: I26.99 Other pulmonary embolism without acute cor pulmonale (principal); I10 Essential (primary) hypertension; K92.2 Gastrointestinal hemorrhage, unspecified; E78.5 Hyperlipidemia, unspecified; I48.0 Paroxysmal atrial fibrillation; Z79.01 Long term (current) use of anticoagulants | CPT/HCPCS: 99204 ==

== ENCOUNTER 2023-01-09 08:54 | Outpatient (CLI) | payer MEDICARE, MEDICAID, SELFPAY ==
--- NOTE | 2023-01-09 09:30 | MR_ITS ---
WS: [id number] MRI RIGHT SHOULDER NONCONTRAST TECHNIQUE: Sagittal T2, coronal T1, T2 and proton density imaging. Axial gradient PDE imaging. CLINICAL INFORMATION: M25.511 - Pain in right shoulder COMPARISON: None. FINDINGS: Some images degraded by motion artifact. Chronic fracture deformity head and neck of the humerus. No significant edema. Fracture appears chron ic and healed. Moderate degenerative arthritis AC joint with fluid and edema. Small amount of subacro mial fluid. Mild downsloping of the acromion. Advanced degenerative arthritis of the glenohumeral art iculation with hypertrophic spurring along the humeral neck. Prominent protruding medial humeral neck osteophyte measuring 1.7 cm. Subchondral cystic changes involving the humeral head and glenoid. Hypertrophic spurring along the bi cipital groove. Biceps tendon appears subluxed due to prior humeral fracture. Intra-articular biceps tendon appears present and intact. Intra-articular biceps tendon appears intact. Advanced degenerativ e changes involving the glenoid labrum. Chronic thinning of the distal supraspinatus which appears intact distally. Infraspinatus appears int act. Normal teres minor. Chronic tear of the distal subscapularis tendon. Lobulated ganglion cysts wi thin the subcoracoid bursa. Small appearing shoulder joint capsule suspicious for adhesive capsulitis in the appropriate clinical setting. Thickening of the axillary recess with a small amount of edema in the rotator interval. IMPRESSION: * Chronic fracture deformity of the proximal humeral head and neck which appears healed. * Prominent protruding osteophyte from the medial humerus measuring 1.7 cm. * Somewhat diminutive shoulder capsule suspicious for adhesive capsulitis in the appropriate clinica l setting. * Chronic thinning of the distal supraspinatus which appears intact. * Chronic tear of the distal subscapularis which is otherwise intact. * Chronic subluxation of the bicipital tendon in the bicipital groove due to prior fracture. * Advanced degenerative narrowing glenohumeral articulation.
== END 2023-01-09 08:55 | disposition home or self-care (01) ==
PROVIDERS: PCP Family Medicine; Visit Provider Family Medicine
DX: M25.511 Pain in right shoulder (principal); M21.821 Other specified acquired deformities of right upper arm; Z87.81 Personal history of (healed) traumatic fracture; M25.711 Osteophyte, right shoulder; S46.911A Strain of unspecified muscle, fascia and tendon at shoulder and upper arm level, right arm, initial encounter; S43.081A Other subluxation of right shoulder joint, initial encounter; X58.XXXA Exposure to other specified factors, initial encounter
CPT/HCPCS: 73221

== ENCOUNTER 2023-02-01 12:10 | Inpatient (IN) | payer MEDICARE, MEDICAID, SELFPAY ==
[2023-02-01] VITALS (11 sets, daily range): BP systolic 127–165; BP diastolic 66–80; PULSE 61–85; RESP 15–18; TEMP 36.6–36.8; O2SAT 87–95; BMI 25.2
--- NOTE | 2023-02-01 12:34 | XR_ITS ---
WS: [id number] Portable AP upright chest, 02/01/2023 Clinical Data: dyspnea/cough Comparison: Portable chest, 06/11/2022 Findings: There is a moderate right pleural effusion. The pulmonary vascularity is slightly increased . There is a small left effusion. The heart is probably enlarged. The aortic arch and descending thor acic aorta show calcification and tortuosity. There are no nodules or masses. There are clips in the right axilla from prior surgery. There is a healed left humeral neck fracture. There is an old left m idclavicular fracture. There is osteoarthritis of the right shoulder joint. Impression: 1. Moderate right pleural effusion and small left effusion. 2. Cardiomegaly and pulmonary vascular congestion. 3. Atherosclerosis.
--- NOTE | 2023-02-01 12:34 | ECG_ITS ---
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 Measurements Intervals Magazine Rate: 66 P: 48 [place]: 181 QRS: 81 QRSD: 87 T: 57 QT: 441 QTc: 463 Interpretive Statements SINUS RHYTHM POSSIBLE RIGHT VENTRICULAR CONDUCTION DELAY [RSR (QR) IN V1/V2] Compared to ECG 06/10/2022 13:29:48 Sinus tachycardia no longer present Electronically Signed On 02-01-2023 17:21:24 CDT by Butch Ortiz M.D. [id number]
--- NOTE | 2023-02-01 12:43 | ED_ITS ---
HPI - SOB/Dyspnea General: Chief Complaint: Shortness of Breath/Dyspnea Stated Complaint: sob Time Seen by Provider: 02/01/23 12:31 Source: patient Mode of arrival: ambulatory History of Present Illness: HPI Narrative: Taras Holman female presents emergency room complaining of shortness of breath she has been shortness of short of breath for the last several days presented to the [facility] today they noted her oxygen sats to be in the 70% range on room air. She denies any fever sweats chills or productive cough. MD elicited complaint: shortness of breath and cough Pertinent past history: other (Breast cancer) Onset (ago): hour(s) Exacerbating factors: nothing Relieving factors: nothing Associated symptoms: Reports no associated symptoms, cough and other; Deny abdominal pain, chest congestion, chest pain, diaphoresis, dizziness, extremity pain, fever(s), hemoptysis, lightheadedness, myalgias, nausea, orthopnea, palpitations, paresthesias, polydipsia, polyuria, rash, sense of impending doom, syncope or vomiting Review of Systems Const: Denies: fever(s) or diaphoresis Card: Denies: chest pain, palpitations, lightheadedness, syncope or orthopnea Resp: Denies: hemoptysis or chest congestion GI: Denies: abdominal pain, nausea or vomiting Musc: Denies: extremity pain Neuro: Denies: dizziness Endo: Denies: polyuria or polydipsia PFSH ED PFSH: Medical History Anxiety Dyslipidemia Essential (primary) hypertension GERD (gastroesophageal reflux disease) Vitamin D deficiency Surgical History History of appendectomy History of cholecystectomy History of hysterectomy History of lumpectomy of both breasts Total knee replacement status LEFT Family History Brother Cancer Social History Smoking and tobacco status: never smoked Quit status (tobacco): has quit using tobacco Second hand smoke exposure: No Smoking risk assessment/counseling performed?: No Alcohol intake: never Desire information about alcohol rehabilitation?: No Counseling given: No Substance/Drug Use: never Desire information about substance/drug rehabilitation?: No Counseling given: No Caregiver/support person: No Lives independently: Yes Household members: spouse Housing: House Marital status: service: No Current occupational status: retired Do you think of yourself as: Straight/Heterosexual Current gender identity: Female Physical Exam Const: GENERAL APPEARANCE: cooperative and comfortable ORIENTATION/C ONSCIOUSNESS: Yes awake, Yes oriented to person, Yes oriented to place and Yes oriented to time HENMT: COMMON NORMALS: normocephalic, atraumatic and hearing grossly normal bilaterally HEAD & SCALP: normocephalic and atraumatic Resp: COMMON NORMALS: normal respiratory effort, No retractions and No use of accessory muscles OTHER: Diminished breath sounds with crackles on the right base Cardio: COMMON NORMALS: regular rate, regular rhythm and No murmurs present (Cardio) RATE: regular rate RHYTHM: regular rhythm GI: COMMON NORMALS: Soft to palpation and No hepatosplenomegaly present AUSCULTATION: Yes normoactive bowel sounds PALPATION: Yes Soft to palpation, No Tenderness to palpation present (GI), No Guarding due to palpation present (GI) and Yes No hepatosplenomegaly present Extremity: COMMON NORMALS: normal to inspection, capillary refill normal, no clubbing, cyanosis or edema, no calf tenderness and no pedal edema Neuro: SENSORIUM/ORIENTATION: Yes oriented to person, Yes oriented to place and Yes oriented to time Skin: COMMON NORMALS: no rashes or lesions noted GENERAL SKIN EXAM: no rashes or lesions noted Course Vital Signs: Vital signs: Vital Signs Temperature 97.5 F L 02/05/23 07:55 Pulse Rate 77 02/05/23 07:57 Respiratory Rate 18 02/05/23 07:55 Blood Pressure 150/77 02/05/23 07:55 Pulse Oximetry 96 02/05/23 07:57 Oxygen Delivery Me thod Nasal Cannula 02/05/23 07:57 Oxygen Flow Rate 2 02/05/23 07:57 MDM - SOB/Dyspnea Medical Decision Making New right pleural effusion with hypoxia. Patient is telling me at 1 time she was told she had breast cancer then the second biopsy it was negative then she went to [facility] they told her she did have a gave her radiation and she is on antiestrogen therapy now. We do not have any records of that in our charts organ to try to get the old records from [facility]. Additionally she is on anticoagulation. She has a previous history of pulmonary emboli there is a CTA from May of this year. Discussed Dr. Jones orders written Medical Records I reviewed the patient's medical records. Lab Data I reviewed the patient's lab results. 02/05/23 04:49 02/05/23 04:49 Labs/Radiology: Laboratory Results WBC 4.89 10^3/uL (3.29-11.43) 02/01/23 13:01 RBC 4.29 10^6/uL (3.85-5.65) 02/01/23 13:01 Hgb 12.30 g/dL (11.27-16.99) 02/01/23 13:01 Hct 39.6 % (36-47) 02/01/23 13:01 MCV 92.3 fl (85-98) 02/01/23 13:01 MCH 28.7 pg (27-33) 02/01/23 13:01 MCHC 31.1 g/dL (30-55) 02/01/23 13:01 RDW 13.4 % (12.1-15.1) 02/01/23 13:01 Plt Count 153 10^3/cmm (157-399) L 02/01/23 13:01 MPV 10.2 fL (7.4-10.4) 02/01/23 13:01 Neut % (Auto) 71.0 % 02/01/23 13:01 Lymph % (Auto) 22.1 % 02/01/23 13:01 [place] % (Auto) 5.7 % 02/01/23 13:01 Eos % (Auto) 0.2 % 02/01/23 13:01 Baso % (Auto) 0.4 % 02/01/23 13:01 Neut # (Auto) 3.47 10^3/uL (1.8-7.7) 02/01/23 13:01 Lymph # (Auto) 1.1 10^3/uL (0.8-4.8) 02/01/23 13:01 [place] # (Auto) 0.3 10^3/uL (0.2-0.9) 02/01/23 13:01 Eos # (Auto) 0.0 10^3/uL (0.0-0.8) 02/01/23 13:01 Baso # (Auto) 0.0 10^3/uL (0.0-0.1) 02/01/23 13:01 Nucleated RBC % (auto) 0 % 02/01/23 13:01 Nucleated RBCs # 0.0 /100WBC 02/01/23 13:01 D-Dimer 0.90 ug/mLFEU (0-0.59) H 02/01/23 13:01 Sodium 138 mmol/L (136-145) 02/01/23 13:01 Potassium 3.9 mmol/L (3.5-5.1) 02/01/23 13:01 Chloride 101 mmol/L (98-107) 02/01/23 13:01 Carbon Dioxide 28 mmol/L (22-29) 02/01/23 13:01 Anion Gap 12.9 (5-19) 02/01/23 13:01 BUN 8 mg/dL (8-23) 02/01/23 13:01 Creatinine 0.8 mg/dL (0.5-0.9) 02/01/23 13:01 GFR Calculation Not Reportable 02/01/23 13:01 Glucose 96 mg/dL (65-115) 02/01/23 13:01 Calculated Osmolality 284 mOsm/kg (285-295) L 02/01/23 13:01 Calcium 8.7 mg/dL (8.5-10.5) 02/01/23 13:01 Total Bilirubin 0.3 mg/dL (0.15-1.2) 02/01/23 13:01 AST 19 U/L (0-32) 02/01/23 13:01 ALT 17 U/L (0-33) 02/01/23 13:01 Alkaline Phosphatase 102 U/L (35-105) 02/01/23 13:01 NT-Pro-B Natriuret Pep 1509 pg/mL (0-450) H 02/01/23 13:01 Total Protein 6.1 g/dL (6.6-8.7) L 02/01/23 13:01 Albumin 3.7 g/dL (3.5-5.2) 02/01/23 13:01 Globulin 2.4 g/dL (1.3-4.6) 02/01/23 13:01 Discharge Plan Discharge Patient Disposition: Admitted As Inpatient Admit Provider: Alaina Jones Clinical Impression: Pleural effusion, right, Paroxysmal atrial fibrillation with RVR, Breast CA Condition: Stable Coding Level of Care Code ED Publication Director for Denise Cunningham
[2023-02-01 13:34] LABS: Basophils % 0.4 %; Eosinophils % 0.2 %; Hematocrit 39.6 % (36-47); Lymphocytes # 1.1 10^3/uL (0.8-4.8); Lymphocytes % 22.1 %; Mean Corpuscular HGB Conc 31.1 g/dL (30-55); Mean Corpuscular Hemoglobin 28.7 pg (27-33); Mean Corpuscular Volume 92.3 fl (85-98); Mean Platelet Volume 10.2 fL (7.4-10.4); Monocytes # 0.3 10^3/uL (0.2-0.9); Monocytes % 5.7 %; Neutrophils # 3.47 10^3/uL (1.8-7.7); Nucleated Red Blood Cells % 0 %; Platelet Count 153 10^3/cmm (157-399); Red Blood Count 4.29 10^6/uL (3.85-5.65); Red Cell Distribution Width 13.4 % (12.1-15.1); White Blood Count 4.89 10^3/uL (3.29-11.43)
[2023-02-01 14:01] LABS: Alanine Aminotransferase 17 U/L (0-33); Albumin Level 3.7 g/dL (3.5-5.2); Alkaline Phosphatase 102 U/L (35-105); Anion Gap 12.9 (5-19); Aspartate Amino Transferase 19 U/L (0-32); Blood Urea Nitrogen 8 mg/dL (8-23); Calcium 8.7 mg/dL (8.5-10.5); Carbon Dioxide 28 mmol/L (22-29); Chloride 101 mmol/L (98-107); Globulin 2.4 g/dL (1.3-4.6); Glucose 96 mg/dL (65-115); NT Pro B Type Natriuretic Pept 1509 pg/mL (0-450); Osmolality Calculated 284 mOsm/kg (285-295); Potassium 3.9 mmol/L (3.5-5.1); Sodium 138 mmol/L (136-145); Total Bilirubin 0.3 mg/dL (0.15-1.2); Total Protein 6.1 g/dL (6.6-8.7)
--- NOTE | 2023-02-01 14:04 | CT_ITS ---
WS: [id number] CTA OF THE CHEST WITH PULMONARY EMBOLISM PROTOCOL TECHNIQUE: High-resolution contrast enhanced CTA of the chest with coronal and sagittal reformatted i mages with pulmonary embolism protocol. MIP images are also reviewed. CLINICAL INFORMATION: pleural effusion, dyspnea COMPARISON: CTA 06/10/2022 DLP: 373.[address] scans at [facility] use at least one of these dose optimization techniques: automated e xposure control; mA and/or kV adjustment per patient size (includes targeted exams where dose is matc hed to clinical indication); or iterative reconstruction. FINDINGS: Cardiomegaly. Moderate RIGHT and tiny LEFT pleural effusions. Compressive atelectasis in th e RIGHT lower lobe. RIGHT upper lobe is well aerated. Slight hazy infiltrates in the lingula and lung bases. Subsegmental atelectasis and compressive atelectasis LEFT lower lobe. A few prominent AP window lymph nodes. Patchy hazy irregular opacity in the LEFT upper lobe anteriorl y measuring 1.8 cm nonspecific. This may be infectious or inflammatory but metastatic disease not exc luded considering history. Interstitial edema within both lungs. Proximal main pulmonary arteries are normal. Normal segmental and subsegmental minimal pulmonary miguel susana. No evidence of pulmonary embolus. Prominent main pulmonary arteries can be seen with pulmonary arterial hypertension. Normal caliber thoracic aorta. Aortic calcification. Adrenal glands are normal. Prior cholecystectomy. Bile duct dilatation similar to the prior studies. Splenic granulomas. Small esophageal hiatal hernia. Thoracic curve. Chronic appearing anterior wedging at L1. Enlarged LEFT axillary lymph nodes. Spiculated FDG avid LEFT breast mass described on prior PET/CT 06/21/2022 with calcifications and surr ounding satellite nodularity similar to the prior study. IMPRESSION: 1. No evidence of pulmonary embolus. 2. Moderate to large RIGHT pleural effusion with compressive atelectasis in the RIGHT lower lobe. Ti ny LEFT pleural effusion. 3. Slight hazy groundglass opacities in the lingula and LEFT lower lobe likely infectious or inflamm atory. Some this may be due to edema. 4. Spiculated LEFT breast mass extending to the skin with skin thickening and surrounding satellite nodularity. Associated LEFT axillary lymphadenopathy. LEFT breast mass was FDG avid on the prior PET/ CT 06/21/2022 compatible with neoplasm. Recommend oncology follow-up. 5. Indeterminate 1.7 cm slightly spiculated hazy opacity in the LEFT upper lobe anteriorly. This may be infectious or inflammatory but metastatic disease not excluded.
[2023-02-01] MEDS: iohexol 350 mg/mL 500 mL Btl (per mL) IV (14:57)
--- NOTE | 2023-02-01 17:51 | PM.HP ---
Providers/Chief Complaint Admitting Physician: Alaina Jones MD Primary Care Provider: Mitchell Dior DO Chief Complaint: sob History of Present Illness Didi Victoria is a 82 year old female with a past medical history of breast cancer approximately 20 years ago for which she underwent lumpectomy and radiation at that time. Per patient biopsy from the lumpectomy eventually was negative for malignancy. In May of this year she was noted to have incidental calcified and noncalcified masses in the left breast which was suspicious for breast malignancy and also a 4 mm right middle lobe nodule. Please findings were discovered while she was undergoing work-up for a GI bleed for which she was eventually transferred to [facility] in [place]. It appears she underwent a PET scan at that time which was suspicious for malignancy and she was scheduled to undergo a biopsy at [place], however this never came to fruition as patient's son felt ill in the interim. She presents now with 1 month of worsening chest pain which she was attributing to having right shoulder degenerative changes and possibly undergoing surgery for the same. However over the past 1 she has increasingly become more dyspneic. Today she followed up with her primary care physician where she was noted to have reduced breath sounds on the right side and a new oxygen requirement of 3 L/min and she was sent over into the emergency room. She has been found to have a large right pleural effusion of unclear etiology at this time. Patient denies any fever chills or significant cough over the past month. She states that she has been coughing over the past 1 month but not previously. She has never previously required oxygen. No past history of heart failure. No past history of liver or renal failure. No past history of pleural effusion. Hemoglobin has been stable on Eliquis for many months. It appears she was okay to continue Eliquis after the episode of GI bleed she had in May. We will obtain prior records from [facility]. I am uncertain where she was finally found to be bleeding. Review of Systems General: Reports: 10 or more systems reviewed and unremarkable except in HPI and below Const: Denies: fever(s), chills or body aches Eyes: Denies: change in vision, blurry vision or photophobia ENMT: Reports: hoarseness; Denies: throat pain, enlarged tonsils, odynophagia or nasal congestion Card: Denies: chest pain, palpitations, irregular heart rhythm, edema, swelling of feet/ankles, lightheadedness, pre-syncope, dyspnea on exertion or orthopnea Resp: Denies: dyspnea, productive cough, non-productive cough, wheezing, stridor, pain on inspiration, change in phlegm color, hemoptysis or chest congestion GI: Denies: abdominal pain, nausea, vomiting, hematemesis, coffee ground emesis, dysphagia, heartburn, diarrhea, constipation, GI cramping, change in stool character, hematochezia or melena : Denies: flank pain, difficulty voiding, dysuria, urinary frequency, urinary urgency, urinary hesitancy or hematuria Musc: Denies: neck pain, back pain, extremity pain, joint swelling, joint warmth or deformity Neuro: Denies: headache(s), numbness in extremities, weakness in extremities, sensory changes, difficulty walking, frequent falls, dizziness, vertigo, behavioral changes, Slurred speech present or seizure-like activity Psych: Denies: anxiety, depression, suicidal ideation or homicidal ideation Endo: Denies: polyuria, polydipsia, tired all the time, cold intolerance or hot flashes Joni/Lymph: Denies: easy bruising or easy bleeding Medications/Allergies Home Medications Medication Instructions Recorded Confirmed Last Taken Type vit no.95-ferrous 1 tab PO DAILY@0800 02/13/20 02/01/23 02/01/23 History fumarate 28 mg-folic acid 800 mcg tablet () simvastatin 20 mg tablet 20 mg PO DAILY@0800 02/13/20 02/01/23 02/01/23 History amlodipine 10 mg tablet (Norvasc) 10 mg PO DAILY@0800 #30 tabs 03/21/22 02/01/23 02/01/23 Rx enalapril maleate 20 mg tablet 20 mg PO BID@0800,2200 #60 tabs 03/21/22 02/01/23 02/01/23 Rx metoprolol succinate 200 mg 200 mg PO BEDTIME@2200 #30 tabs 03/21/22 02/01/23 01/31/23 Rx tablet,extended release 24 hr anastrozole 1 mg tablet 1 mg PO DAILY 12/12/22 02/01/23 02/01/23 History apixaban 5 mg tablet (Eliquis) 5 mg PO BID 0702/01/23 02/01/23 History diltiazem HCl 30 mg tablet 30 mg PO TID 12/12/22 02/01/23 02/01/23 History levetiracetam 500 mg tablet 500 mg PO BID 12/12/22 02/01/23 02/01/23 History diazepam 5 mg tablet 5 mg PO ONCE PRN anxiety #1 tab 12/13/22 02/01/23 Unknown Rx fluoxetine 10 mg capsule 10 mg PO DAILY anxiety #30 caps 01/07/23 02/01/23 02/01/23 Rx simethicone 125 mg capsule 125 mg PO TID PRN bloating #30 caps 01/07/23 02/01/23 Unknown Rx ondansetron HCl 4 mg tablet 4 mg PO Q6H PRN nausea and 01/15/23 02/01/23 Unknown Rx vomiting #20 tabs oxycodone 10 mg tablet 10 mg PO Q4H PRN pain 15 days #90 01/25/23 02/01/23 Unknown Rx tabs morphine 30 mg tablet,extended 30 mg PO Q8H shoulder pain 1 month 01/30/23 02/01/23 Unknown Rx release #90 tabs pantoprazole 40 mg tablet,delayed 40 mg PO DAILY 02/01/23 02/01/23 02/01/23 History release Allergies Allergy/AdvReac Type Severity Reaction Status Date / Time No Known Allergies Allergy Verified 02/01/23 12:21 PFSH Acute PFSH: Medical History Anxiety Dyslipidemia Essential (primary) hypertension GERD (gastroesophageal reflux disease) Vitamin D deficiency Surgical History History of appendectomy History of cholecystectomy History of hysterectomy History of lumpectomy of both breasts Total knee replacement status LEFT Family History Brother Cancer Social History Smoking and tobacco status: never smoked Quit status (tobacco): has quit using tobacco Second hand smoke exposure: No Smoking risk assessment/counseling performed?: No Alcohol intake: never Desire information about alcohol rehabilitation?: No Counseling given: No Substance/Drug Use: never Desire information about substance/drug rehabilitation?: No Counseling given: No Caregiver/support person: No Lives independently: Yes Household members: spouse Housing: House Marital status: service: No Current occupational status: retired Do you think of yourself as: Straight/Heterosexual Current gender identity: Female Vitals/I&O/Wt Last Vital Signs Temp 98.1 F 02/01/23 12:11 Pulse 66 02/01/23 12:11 Resp 18 02/01/23 12:11 BP 127/80 02/01/23 15:52 Pulse Ox 91 02/01/23 13:54 O2 Del Method Nasal Cannula 02/01/23 17:08 O2 Flow Rate 2 02/01/23 13:54 Weight last 48 hrs Weight 70.76 kg Physical Exam Narrative: General: No acute distress, AO x3, on oxygen supplementation 3 L/min HEENT: PERRLA, pupils bilaterally equal and reactive, pallors not present Chest: Reduced breath sounds right infra axillary and infrascapular areas CVS: S1-S2 regular, no murmurs, no tachycardia, no gallops, no rubs Abdomen: Soft, nontender, no organomegaly, bowel sounds present Neuro: No focal deficits, no facial deformity, AO x3, power 5/5 in all limbs Extremities: No gross edema clubbing or cyanosis Data 02/01/23 13:01 02/01/23 13:01 Other Labs: CTA chest performed today shows IMPRESSION: 1.? No evidence of pulmonary embolus. 2.? Moderate to large RIGHT pleural effusion with compressive atelectasis in the RIGHT lower lobe. Tiny LEFT pleural effusion. 3.? Slight hazy groundglass opacities in the lingula and LEFT lower lobe likely infectious or inflammatory. Some this may be due to edema. 4.? Spiculated LEFT breast mass extending to the skin with skin thickening and surrounding satellite nodularity. Associated LEFT axillary lymphadenopathy. LEFT breast mass was FDG avid on the prior PET/CT 06/21/2022 compatible with neoplasm. Recommend oncology follow-up. 5.? Indeterminate 1.7 cm slightly spiculated hazy opacity in the LEFT upper lobe anteriorly. This may be infectious or inflammatory but metastatic disease not excluded. A&P Assessment and plan (1) Pleural effusion, right: Patient presenting to the hospital with at least 1 month of worsening shortness of breath and pain in the chest and shoulder. Found to have large right pleural effusion today. She is requiring supplemental oxygen at 3 L/min. New hypoxia most likely related to compressive effect from the large pleural effusion Patient will require thoracentesis for further diagnostic purposes and also for relief from her dyspnea. She is currently on Eliquis which we will hold over the next 48 hours prior to performing the procedure safely. Suspect this pleural effusion may be malignant in nature given that patient has a history of breast cancer and recently in May 2022 was noted to have suspicious appearing pulmonary and breast nodules. She has unfortunately not had any biopsy in this regard. Once thoracentesis is performed on Saturday (today is Saturday), will obtain pleural fluid analysis culture and cytology for further diagnostics. Low suspicion for parapneumonic effusion given that patient has not had any fever chills or other infectious symptoms. Patient is not septic. Hold off on antibiotics for now to maximize yield of cultures to be taken on thoracentesis. However should patient develop any high-grade fevers or signs or symptoms of infective process would have a low threshold to start empiric antibiotic coverage. Check echocardiogram to ascertain if patient may have heart failure which may contribute to a transudative effusion. Trial of Lasix Continue home medications including oxycodone and as needed morphine. (2) Paroxysmal atrial fibrillation with RVR: Currently rate controlled Continue Cardizem and metoprolol at home dosing Holding Eliquis for anticipated thoracentesis on Saturday (3) Hypoxia: Related to large pleural effusion and resulting lung compression Plan Continue her other home medications including amlodipine, Cardizem, enalapril, fluoxetine, Keppra, morphine and oxycodone for pain management, IV morphine for breakthrough pain. DVT prophylaxis: Typically takes Eliquis, SCDs only for now given anticipated thoracentesis on Saturday Full code Attestations Medical Necessity Statement*: Anticipate greater than 2 midnight admission for planned thoracentesis, new hypoxia needing oxygen supplementation, trial of iv diuretics, evaluate for heart failure Coding Level of Care Code Acute Code for [facility]g Fwd Diagnoses Pleural effusion, right J90 Paroxysmal atrial fibrillation with RVR I48.0 Hypoxia R09.02
--- NOTE | 2023-02-01 18:02 | USCV_ITS ---
Esme Didi Age: 82 Gender: F : 1940 Exam Date: 02/01/2023 18:17 Ordering Phys: Alaina Jones MD Technologist: Rafael Shea [place] [facility] [place]: EF BP: 127 / 80 HR: 69 Rhythm: Sinus Technical Quality: Adequate MEASUREMENTS (Male / Female) Normal Values 2D ECHO LVOT Diameter 2.1 cm LV Ejection Fraction MOD 2C 65.0 % LV Ejection Fraction 2C AL 65.6 % LA Diameter 3.6 cm LA Width 3.9 cm LA Height 5.1 cm RA Width 4.0 cm RA Height 5.4 cm Aorta at Sinotubular Diameter 2.0 cm IVC Diameter 1.9 cm M-MODE Aortic Annulus Diameter 2.5 cm LA Ao Ratio MM 1.5 MV E Point Septal Separation 0.7 cm DOPPLER Right Atrial Pressure 3.0 mmHg FINDINGS Left Ventricle Study is limited to two-dimensional only. No M-mode or Doppler were performed. Left ventricular size and function are normal. No wall motion disturbances. Ejection fraction 65%. Right Ventricle Normal right ventricular size and systolic function. Right Atrium Normal right atrial size. Left Atrium The left atrium is normal in size. Mitral Valve Structurally normal mitral valve. Aortic Valve Structurally normal trileaflet aortic valve. Mild aortic valve calcification. Tricuspid Valve Structurally normal tricuspid valve. Pulmonic Valve Pulmonic valve not well visualized. Pericardium Normal pericardium without effusion. Aorta Normal ascending aorta dimension. IVC The inferior vena cava appears normal. CONCLUSIONS Study is limited to two-dimensional only. No M-mode or Doppler were performed. Left ventricular size and function are normal. No wall motion disturbances. Ejection fraction 65%. Structurally normal trileaflet aortic valve. Mild aortic valve calcification. There are no prior echocardiogram studies to compare. Dr. Trent Yeboah MD (Electronically Signed) Final Date: 02 February 2023 09:50 S
[2023-02-01] MEDS: FUROsemide 10 mg/mL SDV 2mL 20 MG IVP (18:57)
[2023-02-01] MEDS: oxyCODONE 5 mg IR Tab/Cap 10 MG PO (18:58)
[2023-02-01] MEDS: levETIRAcetam 500 mg Tablet PO (18:58)
[2023-02-01] MEDS: lisinopril 20 mg Tablet PO (21:32)
[2023-02-01] MEDS: diazePAM 5 mg Tablet PO (21:35)
[2023-02-02] VITALS (18 sets, daily range): BP systolic 130–165; BP diastolic 58–89; PULSE 62–80; RESP 14–18; TEMP 36.5–36.9; O2SAT 92–93
[2023-02-02] MEDS: oxyCODONE 5 mg IR Tab/Cap 10 MG PO ×5 (00:10→21:07)
[2023-02-02 05:07] LABS: Basophils % 0.5 %; Eosinophils % 0.5 %; Hematocrit 40.6 % (36-47); Lymphocytes # 1.1 10^3/uL (0.8-4.8); Lymphocytes % 27.3 %; Mean Corpuscular HGB Conc 30.3 g/dL (30-55); Mean Corpuscular Hemoglobin 28.4 pg (27-33); Mean Corpuscular Volume 93.8 fl (85-98); Mean Platelet Volume 10.2 fL (7.4-10.4); Monocytes # 0.4 10^3/uL (0.2-0.9); Monocytes % 9.2 %; Neutrophils # 2.54 10^3/uL (1.8-7.7); Neutrophils % 61.8 %; Nucleated Red Blood Cells % 0 %; Platelet Count 150 10^3/cmm (157-399); Red Blood Count 4.33 10^6/uL (3.85-5.65); Red Cell Distribution Width 13.5 % (12.1-15.1); White Blood Count 4.11 10^3/uL (3.29-11.43)
[2023-02-02 05:35] LABS: Alanine Aminotransferase 15 U/L (0-33); Albumin Level 3.3 g/dL (3.5-5.2); Alkaline Phosphatase 97 U/L (35-105); Anion Gap 12.5 (5-19); Aspartate Amino Transferase 17 U/L (0-32); Blood Urea Nitrogen 8 mg/dL (8-23); Calcium 8.4 mg/dL (8.5-10.5); Carbon Dioxide 31 mmol/L (22-29); Chloride 101 mmol/L (98-107); Globulin 2.2 g/dL (1.3-4.6); Glucose 91 mg/dL (65-115); Osmolality Calculated 290 mOsm/kg (285-295); Potassium 3.5 mmol/L (3.5-5.1); Sodium 141 mmol/L (136-145); Total Bilirubin 0.3 mg/dL (0.15-1.2); Total Protein 5.5 g/dL (6.6-8.7)
[2023-02-02] MEDS: morphine ER (12 HR) 30 mg tablet PO ×2 (07:34→18:39)
[2023-02-02] MEDS: anastrozole 1 mg Tablet PO (08:52)
[2023-02-02] MEDS: levETIRAcetam 500 mg Tablet PO ×2 (08:52→17:04)
[2023-02-02] MEDS: pantoprazole DR 40 mg Tablet PO (08:52)
[2023-02-02] MEDS: dilTIAZem 30 mg Tablet PO ×3 (08:52→21:06)
[2023-02-02] MEDS: lisinopril 20 mg Tablet PO ×2 (08:52→21:06)
[2023-02-02] MEDS: fluoxetine 10 mg Capsule PO (08:52)
[2023-02-02] MEDS: amlodipine 10 mg Tablet PO (08:52)
[2023-02-02] MEDS: atorvastatin 40 mg Tablet 20 MG PO (08:53)
--- NOTE | 2023-02-02 17:23 | P.PN_ITS ---
Subjective Subjective: Patient is dehydrated today after having received Lasix IV. States that she is in pain. Oxygen requirements are stable at 3 L/min. Awaiting thoracentesis Vitals/I&O/Wt Last Vital Signs Temp 98.5 F 02/02/23 16:47 Pulse 65 02/02/23 16:47 Resp 16 02/02/23 17:04 BP 130/58 02/02/23 16:47 Pulse Ox 93 02/02/23 16:47 O2 Del Method Nasal Cannula 02/02/23 16:47 O2 Flow Rate 3 02/02/23 10:06 02/02/23 02/02/23 02/02/23 06:59 14:59 22:59 Intake Total 240 / 240 480 / 480 Balance 240 / 240 480 / 480 Weight last 48 hrs Weight 70.76 kg Physical Exam Narrative: General: No acute distress, AO x3, on oxygen supplementation 3 L/min HEENT: PERRLA, pupils bilaterally equal and reactive, pallors not present Chest: Reduced breath sounds right infra axillary and infrascapular areas CVS: S1-S2 regular, no murmurs, no tachycardia, no gallops, no rubs Abdomen: Soft, nontender, no organomegaly, bowel sounds present Neuro: No focal deficits, no facial deformity, AO x3, power 5/5 in all limbs Extremities: No gross edema clubbing or cyanosis Data 02/02/23 04:43 02/02/23 04:43 A&P Assessment and plan (1) Pleural effusion, right: Patient presenting to the hospital with at least 1 month of worsening shortness of breath and pain in the chest and shoulder. Found to have large right pleural effusion She is requiring supplemental oxygen at 3 L/min. New hypoxia most likely related to compressive effect from the large pleural effusion Patient will require thoracentesis for further diagnostic purposes and also for relief from her dyspnea. On hold Eliquis for procedure on Saturday Suspect this pleural effusion may be malignant in nature given that patient has a history of breast cancer and recently in May 2022 was noted to have suspicious appearing pulmonary and breast nodules. She has unfortunately not had any biopsy in this regard. Once thoracentesis is performed on Saturday (today is Saturday), will obtain pleural fluid analysis culture and cytology for further diagnostics. Low suspicion for parapneumonic effusion given that patient has not had any fever chills or other infectious symptoms. Patient is not septic. Holding off on antibiotics LVEF 60% echocardiogram Continue home medications including oxycodone and as needed morphine. (2) Paroxysmal atrial fibrillation with RVR: Currently rate controlled Continue Cardizem and metoprolol at home dosing Holding Eliquis for anticipated thoracentesis on Saturday (3) Hypoxia: Related to large pleural effusion and resulting lung compression Plan Continue her other home medications including amlodipine, Cardizem, enalapril, fluoxetine, Keppra, morphine and oxycodone for pain management, IV morphine for breakthrough pain. DVT prophylaxis: Typically takes Eliquis, SCDs only for now given anticipated thoracentesis on Saturday Full code Attestations Medical Necessity Statement*: Awaiting thoracentesis Coding Level of Care Code Acute Code for [facility] Fwd Diagnoses Pleural effusion, right J90 Paroxysmal atrial fibrillation with RVR I48.0 Hypoxia R09.02
[2023-02-02] MEDS: metoprolol succinate ER (24 HR) 100 mg Tablet 200 MG PO (21:07)
[2023-02-02] MEDS: diazePAM 5 mg Tablet PO (21:07)
[2023-02-03] VITALS (23 sets, daily range): BP systolic 126–166; BP diastolic 63–84; PULSE 64–94; RESP 16–18; TEMP 36.5–37.2; O2SAT 90–94
[2023-02-03] MEDS: oxyCODONE 5 mg IR Tab/Cap 10 MG PO ×6 (01:04→21:56)
[2023-02-03] MEDS: morphine ER (12 HR) 30 mg tablet PO ×3 (02:50→20:01)
[2023-02-03] MEDS: levETIRAcetam 500 mg Tablet PO ×2 (08:20→17:47)
[2023-02-03] MEDS: lisinopril 20 mg Tablet PO ×2 (08:20→22:26)
[2023-02-03] MEDS: atorvastatin 40 mg Tablet 20 MG PO (08:21)
[2023-02-03] MEDS: dilTIAZem 30 mg Tablet PO ×3 (08:21→20:01)
[2023-02-03] MEDS: anastrozole 1 mg Tablet PO (08:21)
[2023-02-03] MEDS: amlodipine 10 mg Tablet PO (08:21)
[2023-02-03] MEDS: fluoxetine 10 mg Capsule PO (08:21)
[2023-02-03] MEDS: pantoprazole DR 40 mg Tablet PO (08:21)
[2023-02-03] MEDS: ondansetron 4 MG Tablet PO (10:54)
[2023-02-03] MEDS: morphine 4 mg/mL SDV 1 mL 2 MG IVP ×3 (12:05→20:16)
--- NOTE | 2023-02-03 16:00 | PM.PN ---
Subjective Subjective: No new complaints. Afebrile hemodynamically stable. Awaiting thoracentesis tomorrow stable on 3 L/min. Vitals/I&O/Wt Last Vital Signs Temp 98.1 F 02/03/23 15:19 Pulse 94 02/03/23 15:19 Resp 18 02/03/23 15:19 BP 166/84 02/03/23 15:19 Pulse Ox 93 02/03/23 15:19 O2 Del Method Nasal Cannula 02/03/23 15:19 O2 Flow Rate 3 02/03/23 07:38 02/03/23 02/03/23 02/03/23 06:59 14:59 22:59 Intake Total 840 / 840 Balance 840 / 840 Physical Exam Narrative: General: No acute distress, AO x3, on oxygen supplementation 3 L/min HEENT: PERRLA, pupils bilaterally equal and reactive, pallors not present Chest: Reduced breath sounds right infra axillary and infrascapular areas CVS: S1-S2 regular, no murmurs, no tachycardia, no gallops, no rubs Abdomen: Soft, nontender, no organomegaly, bowel sounds present Neuro: No focal deficits, no facial deformity, AO x3, power 5/5 in all limbs Extremities: No gross edema clubbing or cyanosis Data 02/02/23 04:43 02/02/23 04:43 A&P Assessment and plan (1) Pleural effusion, right: Patient presenting to the hospital with at least 1 month of worsening shortness of breath and pain in the chest and shoulder. Found to have large right pleural effusion She is requiring supplemental oxygen at 3 L/min. New hypoxia most likely related to compressive effect from the large pleural effusion Patient will require thoracentesis for further diagnostic purposes and also for relief from her dyspnea. On hold Eliquis for procedure on Saturday Suspect this pleural effusion may be malignant in nature given that patient has a history of breast cancer and recently in May 2022 was noted to have suspicious appearing pulmonary and breast nodules. She has unfortunately not had any biopsy in this regard. Once thoracentesis is performed on Saturday, will obtain pleural fluid analysis culture and cytology for further diagnostics. Low suspicion for parapneumonic effusion given that patient has not had any fever chills or other infectious symptoms. Patient is not septic. Holding off on antibiotics LVEF 60% echocardiogram Continue home medications including oxycodone and as needed morphine. (2) Paroxysmal atrial fibrillation with RVR: Currently rate controlled Continue Cardizem and metoprolol at home dosing Holding Eliquis for anticipated thoracentesis on Saturday (3) Hypoxia: Related to large pleural effusion and resulting lung compression Plan Continue her other home medications including amlodipine, Cardizem, enalapril, fluoxetine, Keppra, morphine and oxycodone for pain management, IV morphine for breakthrough pain. DVT prophylaxis: Typically takes Eliquis, SCDs only for now given anticipated thoracentesis on Saturday Full code Attestations Medical Necessity Statement*: planned thoracentesis tomorrow Coding Level of Care Code Acute Code for Chg Fwd Diagnoses Pleural effusion, right J90 Paroxysmal atrial fibrillation with RVR I48.0 Hypoxia R09.02
[2023-02-03] MEDS: sennosides-docusate Tablet 2 TAB PO (17:47)
[2023-02-03] MEDS: diazePAM 5 mg Tablet PO (20:01)
[2023-02-03] MEDS: metoprolol succinate ER (24 HR) 100 mg Tablet 200 MG PO (22:26)
[2023-02-03] MEDS: Fleet Enema 133 mL Enema PR (22:26)
[2023-02-04] VITALS (21 sets, daily range): BP systolic 136–195; BP diastolic 60–77; PULSE 60–78; RESP 12–18; TEMP 36.4–37; O2SAT 88–96
[2023-02-04] MEDS: morphine 4 mg/mL SDV 1 mL 2 MG IVP ×3 (00:37→17:37)
[2023-02-04] MEDS: oxyCODONE 5 mg IR Tab/Cap 10 MG PO ×5 (02:24→22:01)
[2023-02-04] MEDS: morphine ER (12 HR) 30 mg tablet PO ×2 (05:05→15:02)
[2023-02-04 05:41] LABS: Basophils % 0.6 %; Eosinophils # 0.1 10^3/uL (0.0-0.8); Eosinophils % 1.5 %; Hematocrit 41.9 % (36-47); Lymphocytes # 1.3 10^3/uL (0.8-4.8); Lymphocytes % 27.5 %; Mean Corpuscular HGB Conc 30.1 g/dL (30-55); Mean Corpuscular Hemoglobin 28.1 pg (27-33); Mean Corpuscular Volume 93.3 fl (85-98); Mean Platelet Volume 10.4 fL (7.4-10.4); Monocytes # 0.5 10^3/uL (0.2-0.9); Monocytes % 9.9 %; Neutrophils # 2.84 10^3/uL (1.8-7.7); Neutrophils % 60.1 %; Nucleated Red Blood Cells % 0 %; Platelet Count 145 10^3/cmm (157-399); Red Blood Count 4.49 10^6/uL (3.85-5.65); Red Cell Distribution Width 13.5 % (12.1-15.1); White Blood Count 4.73 10^3/uL (3.29-11.43)
[2023-02-04 05:53] LABS: INR 1.09 (0.8-1.2)
[2023-02-04 06:00] LABS: Alanine Aminotransferase 11 U/L (0-33); Albumin Level 3.4 g/dL (3.5-5.2); Alkaline Phosphatase 85 U/L (35-105); Anion Gap 9.8 (5-19); Aspartate Amino Transferase 15 U/L (0-32); Blood Urea Nitrogen 8 mg/dL (8-23); Calcium 8.5 mg/dL (8.5-10.5); Carbon Dioxide 33 mmol/L (22-29); Chloride 102 mmol/L (98-107); Globulin 2.3 g/dL (1.3-4.6); Glucose 117 mg/dL (65-115); Osmolality Calculated 291 mOsm/kg (285-295); Potassium 3.8 mmol/L (3.5-5.1); Sodium 141 mmol/L (136-145); Total Bilirubin 0.3 mg/dL (0.15-1.2); Total Protein 5.7 g/dL (6.6-8.7)
[2023-02-04] MEDS: fluticasone nasal spray 16gm Btl 1 SPRAY NASAL (07:44)
[2023-02-04] MEDS: pantoprazole DR 40 mg Tablet PO (07:46)
[2023-02-04] MEDS: sennosides-docusate Tablet 2 TAB PO ×2 (07:46→17:38)
[2023-02-04] MEDS: fluoxetine 10 mg Capsule PO (07:46)
[2023-02-04] MEDS: levETIRAcetam 500 mg Tablet PO ×2 (07:46→17:38)
[2023-02-04] MEDS: dilTIAZem 30 mg Tablet PO ×2 (07:46→15:02)
[2023-02-04] MEDS: amlodipine 10 mg Tablet PO (07:47)
[2023-02-04] MEDS: atorvastatin 40 mg Tablet 20 MG PO (07:47)
[2023-02-04] MEDS: polyethylene glycol 3350 Pkt 17 gm PO (07:47)
[2023-02-04] MEDS: lisinopril 20 mg Tablet PO ×2 (07:49→22:02)
[2023-02-04] MEDS: anastrozole 1 mg Tablet PO (07:56)
--- NOTE | 2023-02-04 11:36 | US_ITS ---
WS: [id number] ULTRASOUND-GUIDED THORACENTESIS CLINICAL INFORMATION: right pleural effusion COMPARISON: None. PROCEDURE: Informed consent: The risks, benefits, and alternatives of the procedure were discussed with the prashant ent. Verbal and written consent was obtained. Timeout: A timeout was performed to confirm the correct patient, procedure, and site. Site: RIGHT chest Preparation: A suitable skin site was identified. The patient was prepped and draped in usual sterile fashion. Lidocaine 1% was used for local anesthesia. Catheter: 4 Tristanian One-Step catheter. Fluid Volume: 1200 cc Color: Clear yellow Discarded safely. Sent to the laboratory for analysis. Complications: None. IMPRESSION: Uncomplicated ultrasound-guided thoracentesis RIGHT chest with removal of 1200 cc pleural fluid.
--- NOTE | 2023-02-04 14:56 | XR_ITS ---
WS: [id number] CHEST XRAY TECHNIQUE: Portable chest. CLINICAL INFORMATION: thoracentesis COMPARISON: 02/01/2023 FINDINGS: Heart: Cardiomegaly. Aortic calcification. Lungs: Chronic emphysematous changes. Improved RIGHT pleural effusion post thoracentesis. Small resid ual RIGHT pleural effusion with compressive atelectasis RIGHT lower lobe. No pneumothorax. Surgical c lips RIGHT axilla. Bones: Osteopenia. Posttraumatic deformity LEFT humeral neck. Joint arthritis RIGHT humeral neck with hypertrophic changes. IMPRESSION: Improved RIGHT pleural effusion post thoracentesis. No pneumothorax.
[2023-02-04 15:47] LABS: Cyto Order Verification Order Verified
--- NOTE | 2023-02-04 16:11 | P.PN_ITS ---
Subjective Subjective: - Patient was seen this morning, daughter at bedside, is also hospitalized, at bedside in 259 bed 1 -I reviewed patient's chart in detail, from [facility], patient was hospitalized there for almost a month back in May when she was transferred from [facility] -She was diagnosed with invasive ductal carcinoma, of the left breast ER positive, AL positive, HER2/francisca negative, she also had a left axillary lymph node that was also positive, -She was actually supposed to follow-up with Dr. Flaherty here at [facility], and she was supposed to follow-up with an EBUS for a hot paratracheal lymph node biopsy at [facility] a week after her discharge -However a family member was quite sick in [place], so she was unable to follow-up -I had a detailed discussion with her about her CAT scan findings, she has definite left-sided breast cancer with positive lymph node on the left as per documentation from , she also had a left paratracheal lymph node, she also had an adrenal nodule that they are worried about possible metastatic disease, here her CT scan shows a 1.7 cm spiculated hazy opacity left upper lobe -I had a detailed discussion with daughter and patient about her right pleural effusion, it is highly concerning that this is a malignant pleural effusion -Patient and daughter are adamant that she does not want to have chemotherapy -She is agreeable for immunotherapy -She tells me that at home she ambulates on her own, but here she has not ambulated much, only has gone up to the bedside, commode -Spoke to Dr. Flaherty, plan on right thoracocentesis for pathology differentiate breast versus lung -We will follow-up with Dr. Flaherty this week Vitals/I&O/Wt Last Vital Signs Temp 98.6 F 02/04/23 11:37 Pulse 63 02/04/23 11:37 Resp 16 02/04/23 15:02 BP 142/73 02/04/23 11:37 Pulse Ox 92 02/04/23 11:37 O2 Del Method Nasal Cannula 02/04/23 11:37 O2 Flow Rate 3 02/04/23 08:00 02/04/23 02/04/23 02/04/23 06:59 14:59 22:59 Intake Total 240 / 240 Balance 240 / 240 Physical Exam Const: COMMON NORMALS: no acute distress and patient oriented x3 OTHER: Has evidence of mechanical malnutrition, peripheral muscle wasting, temporal muscle wasting Resp: COMMON NORMALS: normal respiratory effort, No retractions, No use of accessory muscles and clear to auscultation bilaterally AUSCULTATION: clear to auscultation bilaterally Cardio: COMMON NORMALS: regular rate, regular rhythm, S1 normal heart sound present and S2 normal heart sound present RATE: regular rate RHYTHM: regular rhythm HEART SOUNDS: S1 normal heart sound present and S2 normal heart sound present GI: COMMON NORMALS: Normal to inspection, nondistended, normoactive bowel sounds present and non-tender Extremity: COMMON NORMALS: no pedal edema Neuro: COMMON NORMALS: patient oriented x3 Psych: COMMON NORMALS: mental status grossly normal Data 02/04/23 05:05 02/04/23 05:05 A&P Assessment and plan (1) Pleural effusion, right: Patient presenting to the hospital with at least 1 month of worsening shortness of breath and pain in the chest and shoulder. Found to have large right pleural effusion, concerning for malignant pleural effusion She is requiring supplemental oxygen at 3 L/min. New hypoxia most likely related to compressive effect from the large pleural effusion Patient will require thoracentesis for further diagnostic purposes and also for relief from her dyspnea. We will have thoracocentesis today resume Eliquis this evening Once thoracentesis is performed on Saturday, will obtain pleural fluid analysis culture and cytology for further diagnostics. Low suspicion for parapneumonic effusion given that patient has not had any fever chills or other infectious symptoms. Patient is not septic. Holding off on antibiotics LVEF 60% echocardiogram Continue home medications including oxycodone and as needed morphine. (2) Paroxysmal atrial fibrillation with RVR: Currently rate controlled Continue Cardizem and metoprolol at home dosing Holding Eliquis for anticipated thoracentesis on Saturday (3) Hypoxia: Related to large pleural effusion and resulting lung compression (4) Protein calorie malnutrition: Consult dietary, likely related to underlying breast cancer, PT OT (5) Invasive ductal carcinoma of left breast, stage 3: ER positive, AL positive, HER2 negative, positive left axillary lymph node -Concerns for hot paratracheal lymph node, patient could not follow-up with EBUS -Has a concerning a adrenal nodule -Has a left lung spiculated hazy opacity (6) Physical deconditioning: Plan Continue her other home medications including amlodipine, Cardizem, enalapril, fluoxetine, Keppra, morphine and oxycodone for pain management, IV morphine for breakthrough pain. DVT prophylaxis: Typically takes Eliquis, SCDs -I reviewed patient's chart in detail, from [facility], patient was hospitalized there for almost a month back in May when she was transferred from [facility] -She was diagnosed with invasive ductal carcinoma, of the left breast ER positive, AL positive, HER2/francisca negative, she also had a left axillary lymph node that was also positive, -She was actually supposed to follow-up with Dr. Flaherty here at [facility], and she was supposed to follow-up with an EBUS for a hot paratracheal lymph node biopsy at [facility] a week after her discharge -However a family member was quite sick in [place], so she was unable to follow-up -I had a detailed discussion with her about her CAT scan findings, she has definite left-sided breast cancer with positive lymph node on the left as per documentation from , she also had a left paratracheal lymph node, she also had an adrenal nodule that they are worried about possible metastatic disease, here her CT scan shows a 1.7 cm spiculated hazy opacity left upper lobe -I had a detailed discussion with daughter and patient about her right pleural effusion, it is highly concerning that this is a malignant pleural effusion -Patient and daughter are adamant that she does not want to have chemotherapy -She is agreeable for immunotherapy -She tells me that at home she ambulates on her own, but here she has not ambulated much, only has gone up to the bedside, commode -Spoke to Dr. Flaherty, plan on right thoracocentesis for pathology differentiate breast versus lung -We will follow-up with Dr. Flaherty this week Attestations Medical Necessity Statement*: Patient requires hospitalization due to hypoxia respiratory failure secondary to right pleural effusion Diagnoses Pleural effusion, right J90 Paroxysmal atrial fibrillation with RVR I48.0 Hypoxia R09.02 Protein calorie malnutrition E46 Invasive ductal carcinoma of left breast, stage 3 C50.912 Physical deconditioning R53.81
[2023-02-04 17:06] LABS: Creatinine Body Fluid 0.57 (0.5-0.9); LDH Pleural Fluid 76 U/L; Total Protein Pleural Fluid 2.8 g/dL; Triglycerides, Pleural Fluid 15 mg/dL
[2023-02-04] MEDS: apixaban 5 mg Tablet PO (20:43)
[2023-02-04] MEDS: diazePAM 5 mg Tablet PO (22:02)
[2023-02-05] VITALS (13 sets, daily range): BP systolic 140–151; BP diastolic 55–77; PULSE 72–78; RESP 16–19; TEMP 36.1–37.2; O2SAT 94–96
[2023-02-05] MEDS: morphine 4 mg/mL SDV 1 mL 2 MG IVP ×3 (00:27→12:15)
[2023-02-05] MEDS: oxyCODONE 5 mg IR Tab/Cap 10 MG PO ×3 (04:25→13:18)
[2023-02-05 05:07] LABS: Basophils % 0.2 %; Eosinophils # 0.1 10^3/uL (0.0-0.8); Eosinophils % 2.6 %; Hematocrit 40.2 % (36-47); Lymphocytes # 1.8 10^3/uL (0.8-4.8); Lymphocytes % 39.3 %; Mean Corpuscular HGB Conc 30.1 g/dL (30-55); Mean Corpuscular Hemoglobin 27.9 pg (27-33); Mean Corpuscular Volume 92.6 fl (85-98); Mean Platelet Volume 10.2 fL (7.4-10.4); Monocytes # 0.4 10^3/uL (0.2-0.9); Neutrophils # 2.21 10^3/uL (1.8-7.7); Neutrophils % 48.2 %; Nucleated Red Blood Cells % 0 %; Platelet Count 150 10^3/cmm (157-399); Red Blood Count 4.34 10^6/uL (3.85-5.65); Red Cell Distribution Width 13.3 % (12.1-15.1); White Blood Count 4.58 10^3/uL (3.29-11.43)
[2023-02-05 05:29] LABS: Anion Gap 8.9 (5-19); Blood Urea Nitrogen 10 mg/dL (8-23); Calcium 8.6 mg/dL (8.5-10.5); Carbon Dioxide 33 mmol/L (22-29); Chloride 102 mmol/L (98-107); Glucose 100 mg/dL (65-115); Osmolality Calculated 289 mOsm/kg (285-295); Potassium 3.9 mmol/L (3.5-5.1); Sodium 140 mmol/L (136-145)
[2023-02-05] MEDS: fluticasone nasal spray 16gm Btl 1 SPRAY NASAL (05:56)
--- NOTE | 2023-02-05 07:00 | XR_ITS ---
WS: [id number] Exam: XR chest 1V portable [id number] Date/Time of Exam: 02/05/2023 6:45 AM Reason For Exam: sob Comparison 02/04/2023. There is infiltrate and atelectasis in the RIGHT middle and lower lobes with RIGHT basal pleural effu janet. The lungs are fully inflated. The LEFT lung is clear. Mild cardiac enlargement with calcificati on of the mitral valve annulus. The mediastinum is normal in contour. Advanced DJD of both shoulders. Old fracture deformity of the proximal LEFT humerus. IMPRESSION: 1. Decreased RIGHT basal pleural effusion since previous exam. 2. Infiltrate and atelectasis in the middle and lower lobes of the RIGHT lung. No pneumothorax. 2. Mild cardiac enlargement.
[2023-02-05] MEDS: dilTIAZem 30 mg Tablet PO (08:28)
[2023-02-05] MEDS: levETIRAcetam 500 mg Tablet PO (08:28)
[2023-02-05] MEDS: pantoprazole DR 40 mg Tablet PO (08:28)
[2023-02-05] MEDS: sennosides-docusate Tablet 2 TAB PO (08:28)
[2023-02-05] MEDS: amlodipine 10 mg Tablet PO (08:28)
[2023-02-05] MEDS: anastrozole 1 mg Tablet PO (08:29)
[2023-02-05] MEDS: apixaban 5 mg Tablet PO (08:29)
[2023-02-05] MEDS: polyethylene glycol 3350 Pkt 17 gm PO (08:29)
[2023-02-05] MEDS: fluoxetine 10 mg Capsule PO (08:29)
[2023-02-05] MEDS: atorvastatin 40 mg Tablet 20 MG PO (08:29)
[2023-02-05] MEDS: lisinopril 20 mg Tablet PO (08:33)
[2023-02-05 09:12] LABS: Lactate Dehydrogenase 148 U/L (135-214)
[2023-02-05] MEDS: FUROsemide 10 mg/mL SDV 4mL 40 MG IVP (10:39)
[2023-02-05] MEDS: morphine ER (12 HR) 30 mg tablet PO (10:47)
--- NOTE | 2023-02-05 11:25 | PM.DCS ---
Discharge Providers Date of Admission: 02/01/23 15:24 Date of Discharge: February 05, 2023 Attending Provider at Admission: Alaina Jones MD Attending Provider at Discharge: Lucho Lovelace MD Primary Care Provider: Mitchell Dior DO Diagnoses at Discharge Discharge Diagnosis (1) Pleural effusion, right: Status: Acute (2) Paroxysmal atrial fibrillation with RVR: Status: Acute (3) Hypoxia: Status: Acute (4) Protein calorie malnutrition: Status: Acute (5) Invasive ductal carcinoma of left breast, stage 3: Status: Acute (6) Physical deconditioning: Status: Acute Reason for Visit Reason for Visit: sob Hospital Course Hospital Course This is a 82-year-old female with a past medical history of right sided breast cancer status post lumpectomy radiation therapy, history of GI bleeds, history of atrial fibrillation on Eliquis, history of PE, who presents to [facility] due to shortness of breath, and chest discomfort, patient was found to have a large right pleural effusion, concerns for malignant pleural effusion -I reviewed patient's chart in detail, from [facility], patient was hospitalized there for almost a month back in May when she was transferred from [facility] -She was diagnosed with invasive ductal carcinoma, of the left breast ER positive, RI positive, HER2/francisca negative, she also had a left axillary lymph node that was also positive, -She was actually supposed to follow-up with Dr. Flaherty here at [facility], and she was supposed to follow-up with an EBUS for a hot paratracheal lymph node biopsy at [facility] a week after her discharge -However a family member was quite sick in [place], so she was unable to follow-up -I had a detailed discussion with her about her CAT scan findings, she has definite left-sided breast cancer with positive lymph node on the left as per documentation from , she also had a left paratracheal lymph node, she also had an adrenal nodule that they are worried about possible metastatic disease, here her CT scan shows a 1.7 cm spiculated hazy opacity left upper lobe -I had a detailed discussion with daughter and patient about her right pleural effusion, it is highly concerning that this is a malignant pleural effusion -Patient and daughter are adamant that she does not want to have chemotherapy -She is agreeable for immunotherapy -Patient underwent thoracocentesis, so far pleural studies show a exudative pleural effusion, concerning for malignant pleural effusion, pathology is pending, patient will follow-up with Dr. Flaherty in the next 48 hours, I personally spoke to him, she will also be discharged on Lasix as needed for fluid overload as I think a component of her shortness of breath is related to diastolic CHF,her chest x-ray did show scattered infiltrates in the middle and lower lobes of the right lung, she has no significant cytosis, nonetheless I will discharge her on doxycycline for possible respiratory tract infection Physical Exam Const: COMMON NORMALS: no acute distress and patient oriented x3 Resp: COMMON NORMALS: normal respiratory effort, No retractions, No use of accessory muscles and clear to auscultation bilaterally AUSCULTATION: clear to auscultation bilaterally Cardio: COMMON NORMALS: regular rate, regular rhythm, S1 normal heart sound present and S2 normal heart sound present RATE: regular rate RHYTHM: regular rhythm HEART SOUNDS: S1 normal heart sound present and S2 normal heart sound present GI: COMMON NORMALS: Normal to inspection, nondistended, normoactive bowel sounds present and non-tender Extremity: COMMON NORMALS: no pedal edema Neuro: COMMON NORMALS: patient oriented x3 Psych: COMMON NORMALS: mental status grossly normal Discharge Data Studies Completed and Pending Completed Studies During Hospitalization Category Date Time Status CT angio chest PE protcl [id number] Stat Cat Scan 02/01/23 14:04 Completed XR chest 1V portable [id number] Routine Exams 02/05/23 07:00 Completed XR chest 1V portable [id number] Stat Exams 02/01/23 12:34 Completed XR chest 1V portable [id number] Stat Exams 02/04/23 14:56 Completed CV. echo limited [id number] Routine Ultrasound 02/01/23 18:02 Completed US thoracentesis [id number] Routine Ultrasound 02/04/23 11:36 Completed Pending at discharge Category Date Time Status Basic Metabolic Panel AM LABS Lab 02/06/23 04:00 Ordered Basic Metabolic Panel AM LABS Lab 02/07/23 04:00 Ordered Body Fluid Culture & GS Routine Lab 02/04/23 15:00 Results Complete Blood Count w/Auto AM LABS Lab 02/06/23 04:00 Ordered Complete Blood Count w/Auto AM LABS Lab 02/07/23 04:00 Ordered Mycobacteria, Culture w/Fluor Routine Lab 02/04/23 15:00 Received Cytology [PTH] Routine Pth 02/04/23 11:36 Received Laboratory Results WBC 4.58 10^3/uL (3.29-11.43) 02/05/23 04:49 RBC 4.34 10^6/uL (3.85-5.65) 02/05/23 04:49 Hgb 12.10 g/dL (11.27-16.99) 02/05/23 04:49 Hct 40.2 % (36-47) 02/05/23 04:49 MCV 92.6 fl (85-98) 02/05/23 04:49 MCH 27.9 pg (27-33) 02/05/23 04:49 MCHC 30.1 g/dL (30-55) 02/05/23 04:49 RDW 13.3 % (12.1-15.1) 02/05/23 04:49 Plt Count 150 10^3/cmm (157-399) L 02/05/23 04:49 MPV 10.2 fL (7.4-10.4) 02/05/23 04:49 Neut % (Auto) 48.2 % 02/05/23 04:49 Lymph % (Auto) 39.3 % 02/05/23 04:49 [place] % (Auto) 9.0 % 02/05/23 04:49 Eos % (Auto) 2.6 % 02/05/23 04:49 Baso % (Auto) 0.2 % 02/05/23 04:49 Neut # (Auto) 2.21 10^3/uL (1.8-7.7) 02/05/23 04:49 Lymph # (Auto) 1.8 10^3/uL (0.8-4.8) 02/05/23 04:49 [place] # (Auto) 0.4 10^3/uL (0.2-0.9) 02/05/23 04:49 Eos # (Auto) 0.1 10^3/uL (0.0-0.8) 02/05/23 04:49 Baso # (Auto) 0.0 10^3/uL (0.0-0.1) 02/05/23 04:49 Nucleated RBC % (auto) 0 % 02/05/23 04:49 Nucleated RBCs # 0.0 /100WBC 02/05/23 04:49 PT 14.50 SECONDS (12.1-14.9) 02/04/23 05:05 INR 1.09 (0.8-1.2) 02/04/23 05:05 D-Dimer 0.90 ug/mLFEU (0-0.59) H 02/01/23 13:01 Sodium 140 mmol/L (136-145) 02/05/23 04:49 Potassium 3.9 mmol/L (3.5-5.1) 02/05/23 04:49 Chloride 102 mmol/L (98-107) 02/05/23 04:49 Carbon Dioxide 33 mmol/L (22-29) H 02/05/23 04:49 Anion Gap 8.9 (5-19) 02/05/23 04:49 BUN 10 mg/dL (8-23) 02/05/23 04:49 Creatinine 0.6 mg/dL (0.5-0.9) 02/05/23 04:49 GFR Calculation Not Reportable 02/05/23 04:49 Glucose 100 mg/dL (65-115) 02/05/23 04:49 Calculated Osmolality 289 mOsm/kg (285-295) 02/05/23 04:49 Calcium 8.6 mg/dL (8.5-10.5) 02/05/23 04:49 Magnesium 2.0 mg/dL (1.7-2.3) 02/02/23 04:43 Total Bilirubin 0.3 mg/dL (0.15-1.2) 02/04/23 05:05 AST 15 U/L (0-32) 02/04/23 05:05 ALT 11 U/L (0-33) 02/04/23 05:05 Alkaline Phosphatase 85 U/L (35-105) 02/04/23 05:05 Lactate Dehydrogenase 148 U/L (135-214) 02/05/23 04:49 NT-Pro-B Natriuret Pep 1509 pg/mL (0-450) H 02/01/23 13:01 Total Protein 5.7 g/dL (6.6-8.7) L 02/04/23 05:05 Albumin 3.4 g/dL (3.5-5.2) L 02/04/23 05:05 Globulin 2.3 g/dL (1.3-4.6) 02/04/23 05:05 Fluid Hematocrit 0.0 % 02/04/23 15:00 Fluid Albumin 2.0 g/dL 02/04/23 15:00 Fluid Creatinine 0.57 (0.5-0.9) 02/04/23 15:00 Pleural pH 8.00 (6.5-7.5) H 02/04/23 15:00 Pleural Total Protein 2.8 g/dL 02/04/23 15:00 Pleural LDH 76 U/L 02/04/23 15:00 Pleural Glucose 112.0 mg/dL 02/04/23 15:00 Pleural Amylase 21.0 U/L 02/04/23 15:00 Pleural Triglycerides 15 mg/dL 02/04/23 15:00 Vitals Last Vital Signs Temp 97.5 F L 02/05/23 07:55 Pulse 77 02/05/23 07:57 Resp 18 02/05/23 10:47 BP 150/77 02/05/23 07:55 Pulse Ox 96 02/05/23 07:57 O2 Del Method Nasal Cannula 02/05/23 07:57 O2 Flow Rate 3 02/05/23 08:28 Discharge Plan Discharge Patient Disposition: Home Condition: Stable Prescriptions: New polyethylene glycol 3350 17 gram Powder In Packet 17 g PO DAILY PRN (Reason: constipation) 30 Days Qty: 30 0RF Stool Softener-Laxative 8.6-50 mg Tablet 1 tab PO BID 30 Days Qty: 60 0RF Lasix 20 mg tablet 20 mg PO DAILY PRN (Reason: for sob and edema) 7 Days Qty: 7 0RF doxycycline hyclate 100 mg tablet 100 mg PO BID 7 Days Qty: 14 0RF Continued diltiazem HCl 30 mg tablet 30 mg PO TID Eliquis 5 mg tablet 5 mg PO BID anastrozole 1 mg tablet 1 mg PO DAILY levetiracetam 500 mg tablet 500 mg PO BID simethicone 125 mg capsule 125 mg PO TID PRN (Reason: bloating) Qty: 30 1RF metoprolol succinate 200 mg tablet extended release 24 hr 200 mg PO BEDTIME@2200 Qty: 30 11RF enalapril maleate 20 mg tablet 20 mg PO BID@0800,2200 Qty: 60 11RF amlodipine [Norvasc] 10 mg tablet 10 mg PO DAILY@0800 Qty: 30 11RF fluoxetine 10 mg capsule 10 mg PO DAILY Qty: 30 5RF ondansetron HCl 4 mg tablet 4 mg PO Q6H PRN (Reason: nausea and vomiting) Qty: 20 1RF oxycodone 10 mg tablet 10 mg PO Q4H PRN (Reason: pain) 15 Days Qty: 90 0RF morphine 30 mg tablet extended release 30 mg PO Q8H 30 Days Qty: 90 0RF simvastatin 20 mg tablet 20 mg PO DAILY@0800 PNV cmb#95-ferrous fumarate-FA [] 28 mg iron- 800 mcg Tablet 1 tab PO DAILY@0800 pantoprazole 40 mg tablet,delayed release (DR/EC) 40 mg PO DAILY Changed diazepam 5 mg tablet 2.5 mg PO BID PRN (Reason: anxiety) 7 Days Qty: 7 0RF Discharge Orders: Discharge Order (Routine); Ordered 02/05/23 Ordered By: Lucho Lovelace Other Ambulatory Orders: DME: Oxygen (Order) Location: None Selected Ordered By: Lucho Lovelace Referrals: [facility] [place] [Outside] Tevin Flaherty MD [Hospitalist] - 1-3 days Mitchell Dior DO [Primary Care Provider] - 02/12/23 10:40 am Discharge Diet: Cardiac Discharge Activity: Resume usual activity Patient Instructions: Furosemide (By mouth), Diazepam (By mouth), Laxative, Stool Softeners (By mouth), Polyethylene Glycol 3350 (By mouth), Pleural Effusion (GEN), Opioid Safety Activity Restrictions/Additional Instructions: - Please see Dr. Cardona, consider repeat chest x-ray in a week, monitor pleural effusion -Please see Dr. Flaherty this week -Please use diazepam sparingly for anxiety, do not use with oxycodone or morphine, due to risk of side effects, risk of morbidity and mortality, Discharge Attestations Time Spent in Discharge Care*: greater than 30 min Quality Metrics Clinical Quality Measures [ No reported AMI, CVA or VTE this stay] Coding Level of Care Code 90568 Total time (in minutes) for Discharge: 45 Diagnoses Pleural effusion, right J90 Paroxysmal atrial fibrillation with RVR I48.0 Hypoxia R09.02 Protein calorie malnutrition E46 Invasive ductal carcinoma of left breast, stage 3 C50.912 Physical deconditioning R53.81
[2023-02-05] MEDS: azithromycin 500 MG in sodium chloride 0.9% 250 ML 250 MG IV (12:05)
[2023-02-05] MEDS: cefTRIAXone 1,000 MG in sodium chloride 0.9% (plus) 50 ML 100 MG IV (12:06)
--- NOTE | 2023-02-05 12:15 | PC.OT ---
Seen b/s this date for brief interview. Patient being discharged to home with multiple family members who are very willing to help her. She has all of the DME she needs to be fully I at home. No charge for this evaluation. Very supportive family available at bedside.
--- NOTE | 2023-02-05 19:01 | PC.NURSE ---
This nurse removed morphine and gave to Nish Bhandari, RN, to give. Nish gave push and the rest was wasted. Nurses were unable to waste in pyxis after patient was discharged due to too much time passing. This nurse contacted Pharmacy and [facility] said there was nothing they could do so nurse is making nurses note.
== END 2023-02-05 14:32 | disposition home or self-care (01) | DRG 187 ==
LOC: ER 16:15 → MEDSURG 16:25
PROVIDERS: Admitting Provider Student in an Organized Health Care Education/Training Program; Emergency Provider Family Medicine; PCP Family Medicine; Visit Provider Family Medicine
DX: J90 Pleural effusion, not elsewhere classified (principal); C77.3 Secondary and unspecified malignant neoplasm of axilla and upper limb lymph nodes; I50.32 Chronic diastolic (congestive) heart failure; E46 Unspecified protein-calorie malnutrition; C50.912 Malignant neoplasm of unspecified site of left female breast; Z17.0 Estrogen receptor positive status [ER+]; Z92.3 Personal history of irradiation; I48.0 Paroxysmal atrial fibrillation; Z86.711 Personal history of pulmonary embolism; I11.0 Hypertensive heart disease with heart failure; J06.9 Acute upper respiratory infection, unspecified; Z79.01 Long term (current) use of anticoagulants; Z79.811 Long term (current) use of aromatase inhibitors; Z79.891 Long term (current) use of opiate analgesic; Z68.25 Body mass index [BMI] 25.0-25.9, adult; F41.9 Anxiety disorder, unspecified; E78.5 Hyperlipidemia, unspecified; K21.9 Gastro-esophageal reflux disease without esophagitis; Z96.652 Presence of left artificial knee joint; R91.8 Other nonspecific abnormal finding of lung field; E27.9 Disorder of adrenal gland, unspecified; E86.0 Dehydration
CPT/HCPCS: 32555; 36415; 71045; 71275; 80048; 80053; 82042; 82150; 82570; 82945; 83615; 83735; 83880; 83986; 84157; 84478; 85014; 85025; 85378; 85610; 87015; 87070; 87075; 87116; 87205; 87206; 87801; 88112; 88305; 93005; 93308; 94760; 97116; 97161; 99285; J0456; J0696; J1940; J2270; J7050; J8999; Q0162; Q9967

== ENCOUNTER 2023-02-08 09:02 | Oncology outpatient (recurring) (ONCR) | payer MEDICARE, MEDICAID, SELFPAY | END 2023-02-23 23:59 | disposition home or self-care (01) | LOC: ONCMED 09:03 | PROVIDERS: PCP Family Medicine; Visit Provider Internal Medicine Medical Oncology | DX: C50.112 Malignant neoplasm of central portion of left female breast (principal); Z17.0 Estrogen receptor positive status [ER+] | CPT/HCPCS: 99205 ==

== ENCOUNTER 2023-02-25 14:21 | Outpatient (CLI) | payer MEDICARE, MEDICAID, SELFPAY ==
--- NOTE | 2023-02-25 15:00 | XR_ITS ---
WS: [id number] DEXA (DUAL ENERGY X-RAY ABSORPTIOMETRY) Bone mineral density was performed using a Pad[employer] machine. HISTORY: osteoporosis COMPARISON: None available. Lumbar spine BMD (L2-L4): 1.134 T score: -0.5 Z score: 1.3 Total hip BMD: Left: 0.903 g/cm2. T score: -0.8 Z score: 1.4 Right: 0.811 g/cm2. T score: -1.6 Z score: 0.6 10 year probability of a major osteoporotic fracture is 18.9%. IMPRESSION: OSTEOPENIA based upon the WHO classification for females.
== END 2023-02-25 14:22 | disposition home or self-care (01) ==
LOC: RAD 14:22
PROVIDERS: PCP Family Medicine; Visit Provider Internal Medicine Medical Oncology
DX: M81.0 Age-related osteoporosis without current pathological fracture (principal); Z79.811 Long term (current) use of aromatase inhibitors
CPT/HCPCS: 77080

== ENCOUNTER 2023-02-26 14:09 | Outpatient (CLI) | payer MEDICARE, MEDICAID, SELFPAY ==
--- NOTE | 2023-02-26 09:00 | PETR_ITS ---
PROCEDURE INFORMATION: Exam: PET/CT Skull Base to Mid-thigh Exam date and time: 02/26/2023 9:45 AM Age: 82 years old Clinical indication: Condition or disease; Primary cancer: Breast cancer; Follow-up oncological assessment; Prior surgery; Surgery date: 6+ months; Additional info: Breast cancer restaging, to be completed on 02/16/23. LABS AND CLINICAL REPORTS: Glucose: 134 mg/dl Treatment strategy for malignancy (PET staging): Restaging (PS) TECHNIQUE: Imaging protocol: Following at least four-hour fasting and following the injection of radiopharmaceutical, low dose CT images were obtained. Then, PET images were obtained. Attenuation corrected images were constructed using the CT scan. Fused images of PET and CT were reviewed. The standardized uptake values (SUV) reported below are maximum values within a region of interest, expressed in gm/ml. Exam includes orbital meatal line to mid-thigh. Radiopharmaceutical: 11.2 mCi F-18 FDG (Fluorodeoxyglucose), IV. Time of imaging post radiopharmaceutical administration: 56.5 minutes. Injection site: Right antecubital vein. COMPARISON: CT PET Scan 06/21/2022 12:27 PM FINDINGS: Brain: Visualized brain has normal physiologic uptake. Pharynx: No abnormal uptake. Larynx: No abnormal uptake. Lungs, pleura and trachea: A new moderate right pleural effusion is 5.9 cm in depth. It causes compressive atelectasis in the adjacent right lower lobe. No left pleural effusion. Heart: Normal physiologic uptake. Mediastinal space: No abnormal uptake. Liver: No abnormal uptake. Gallbladder and bile ducts: Post cholecystectomy. Pancreas: No abnormal uptake. Spleen: No splenomegaly. Multiple splenic calcifications are consistent with remote granulomatous disease. Adrenal glands: No abnormal uptake. Kidneys and ureters: Normal physiologic uptake. Stomach and bowel: No abnormal uptake. Vasculature: No abnormal uptake. Lymph nodes: Two subcarinal lymph nodes are smaller and less FDG avid. Its maximum SUV is 5.6, previously 13.6. The larger lymph node has a short axis of 10 mm, previously 14 mm (image 70). A right hilar lymph node is smaller and less FDG avid. Its maximum SUV is 3.8, previously 5.3. It has a short axis 10 mm, previously 14 mm (image 73). A para-aortic lymph node has a short axis of 8 mm, previously 10 mm. It has a maximum SUV of 5.1, previously 10.9 (image 60). A left hilar lymph node is smaller and less FDG avid. It has a short axis of 7 mm, previously 9 mm. Its max SUV is 3.6, previously 5.8 (image 65). No lymphadenopathy in the head, neck, axilla, abdomen, pelvis or extremities. Bones/joints: No metabolically active areas. Soft tissues: The left breast cancer is significantly smaller and only slightly FDG avid. Its maximum SUV is 2.9 (previously 9.2). There is benign/physiologic uptake in the bilateral longus colli muscles. Maximum SUV on the right is 7.4. Maximum SUV on the left is 8.2. It is consistent with muscle overuse, spasm or strain. There is similar abnormal increased uptake is noted in the left rectus femoris muscle (maximum SUV 6.1), and in the left obturator externus muscle (maximum SUV 4.5), and in the thenar muscles of the left hand (maximum SUV 5.5). [id number] IMPRESSION: 1. Partial response. 2. The left breast cancer is significantly smaller and only slightly FDG avid. Its maximum SUV is 2.9 (previously 9.2). 3. Mediastinal and bilateral hilar lymph nodes are smaller and less FDG avid. 4. A new large right pleural effusion is 5.9 cm in depth. It causes compressive atelectasis in the adjacent right lower lobe. 5. There is new increased FDG uptake in the bilateral longus colli muscles, left rectus femoris muscle, left obturator externus muscle, thenar muscles of the left hand. They are considered benign/physiologic and due to muscle spasm, strain or overuse. 6. No FDG avid distant metastases in the liver or skeleton.
== END 2023-02-26 14:10 | disposition home or self-care (01) ==
LOC: RAD 14:09
PROVIDERS: PCP Family Medicine; Visit Provider Internal Medicine Medical Oncology
DX: C50.112 Malignant neoplasm of central portion of left female breast (principal); J90 Pleural effusion, not elsewhere classified; J98.11 Atelectasis
CPT/HCPCS: 78815; A9552

== ENCOUNTER 2023-03-12 12:35 | Oncology outpatient (recurring) (ONCR) | payer MEDICARE, MEDICAID, SELFPAY ==
[2023-03-05 09:09] LABS: Basophils # 0.1 10^3/uL (0.0-0.1); Basophils % 0.6 %; Eosinophils # 0.2 10^3/uL (0.0-0.8); Eosinophils % 1.8 %; Hematocrit 43.7 % (36-47); Lymphocytes # 1.3 10^3/uL (0.8-4.8); Lymphocytes % 15.4 %; Mean Corpuscular HGB Conc 30.4 g/dL (30-55); Mean Corpuscular Hemoglobin 28.1 pg (27-33); Mean Corpuscular Volume 92.4 fl (85-98); Mean Platelet Volume 10.5 fL (7.4-10.4); Monocytes # 0.3 10^3/uL (0.2-0.9); Monocytes % 3.9 %; Neutrophils % 77.6 %; Nucleated Red Blood Cells % 0 %; Platelet Count 174 10^3/cmm (157-399); Red Blood Count 4.73 10^6/uL (3.85-5.65); White Blood Count 8.25 10^3/uL (3.29-11.43)
[2023-03-05 09:54] LABS: Alanine Aminotransferase 8 U/L (0-33); Albumin Level 3.9 g/dL (3.5-5.2); Alkaline Phosphatase 84 U/L (35-105); Aspartate Amino Transferase 15 U/L (0-32); Blood Urea Nitrogen 9 mg/dL (8-23); CA 15-3 18.9 U/mL (0-25); Calcium 9.2 mg/dL (8.5-10.5); Carbon Dioxide 32 mmol/L (22-29); Chloride 100 mmol/L (98-107); Creatinine Clr Calc Pharmacy 51.8936; Globulin 3.1 g/dL (1.3-4.6); Glucose 122 mg/dL (65-115); Osmolality Calculated 290 mOsm/kg (285-295); Sodium 140 mmol/L (136-145); Total Bilirubin 0.3 mg/dL (0.15-1.2)
== END 2023-03-26 23:59 | disposition home or self-care (01) ==
PROVIDERS: PCP Family Medicine; Visit Provider Internal Medicine Medical Oncology
DX: C50.112 Malignant neoplasm of central portion of left female breast (principal); Z17.0 Estrogen receptor positive status [ER+]; Z79.899 Other long term (current) drug therapy
CPT/HCPCS: 36415; 80053; 85025; 86300; 99214

== ENCOUNTER 2023-04-25 12:39 | Oncology outpatient (recurring) (ONCR) | payer MEDICARE, MEDICAID, SELFPAY ==
[2023-04-25 13:15] VITALS: BP 116/53; PULSE 64; RESP 16; TEMP 36.8; O2SAT 96
[2023-04-25 13:22] LABS: Basophils % 0.4 %; Eosinophils % 0.3 %; Hematocrit 39.8 % (36-47); Lymphocytes # 1.2 10^3/uL (0.8-4.8); Lymphocytes % 15.9 %; Mean Corpuscular HGB Conc 30.2 g/dL (30-55); Mean Corpuscular Hemoglobin 28.1 pg (27-33); Mean Corpuscular Volume 93.2 fl (85-98); Mean Platelet Volume 10.2 fL (7.4-10.4); Monocytes # 0.2 10^3/uL (0.2-0.9); Monocytes % 2.7 %; Neutrophils # 6.25 10^3/uL (1.8-7.7); Neutrophils % 79.9 %; Nucleated Red Blood Cells % 0 %; Platelet Count 193 10^3/cmm (157-399); Red Blood Count 4.27 10^6/uL (3.85-5.65); Red Cell Distribution Width 15.9 % (12.1-15.1); White Blood Count 7.81 10^3/uL (3.29-11.43)
[2023-04-25 13:48] LABS: Alanine Aminotransferase 13 U/L (0-33); Albumin Level 4.1 g/dL (3.5-5.2); Alkaline Phosphatase 89 U/L (35-105); Aspartate Amino Transferase 16 U/L (0-32); Blood Urea Nitrogen 14 mg/dL (8-23); Calcium 9.6 mg/dL (8.5-10.5); Carbon Dioxide 35 mmol/L (22-29); Chloride 96 mmol/L (98-107); Globulin 2.9 g/dL (1.3-4.6); Glucose 126 mg/dL (65-115); Osmolality Calculated 292 mOsm/kg (285-295); Sodium 140 mmol/L (136-145); Total Bilirubin 0.4 mg/dL (0.15-1.2)
== END 2023-04-25 23:59 | disposition home or self-care (01) ==
PROVIDERS: PCP Family Medicine; Visit Provider Internal Medicine Medical Oncology
DX: C50.112 Malignant neoplasm of central portion of left female breast (principal); Z17.0 Estrogen receptor positive status [ER+]; Z79.899 Other long term (current) drug therapy
CPT/HCPCS: 36415; 80053; 85025; 99215

== ENCOUNTER 2023-05-17 16:36 | Emergency (ER) | payer MEDICARE, MEDICAID, SELFPAY ==
[2023-05-17 16:51] VITALS: BP 121/68; PULSE 65; RESP 16; TEMP 36.9; O2SAT 96; BMI 23.8
--- NOTE | 2023-05-17 17:15 | XRR_ITS ---
PROCEDURE INFORMATION: Exam: XR Chest Exam date and time: 05/17/2023 5:23 PM Age: 82 years old Clinical indication: Shortness of breath; Patient HX: SOB, HX of breast cancer TECHNIQUE: Imaging protocol: Radiologic exam of the chest. Views: 1 view. COMPARISON: CR XR chest 1V portable [id number] 02/05/2023 7:02 AM FINDINGS: Lungs: Left mid to lower lung field ground-glass airspace infiltrate. Right lower lobe calcified granuloma. Pleural spaces: Trace right pleural effusion. Heart/Mediastinum: Cardiomegaly. Bones/joints: Bilateral suspected chronic humeral neck fractures. XR/XR chest 1V [id number] IMPRESSION: 1. Left mid to lower lung field ground-glass airspace infiltrate. 2. Trace right pleural effusion. 3. Right lower lobe calcified granuloma. 4. Cardiomegaly. 5. Bilateral suspected chronic humeral neck fractures.
--- NOTE | 2023-05-17 18:09 | ECG_ITS ---
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 Measurements Intervals [place] Rate: 63 P: 99 MN: 180 QRS: 21 QRSD: 86 T: 46 QT: 411 QTc: 421 Interpretive Statements SINUS RHYTHM WITH OCCASIONAL SUPRAVENTRICULAR PREMATURE COMPLEXES Compared to ECG 02/01/2023 12:42:41 No significant changes Electronically Signed On 05-17-2023 19:30:11 CONTACT WORKER by Butch Ortiz M.D. [email or web address]/[id number]
--- NOTE | 2023-05-17 18:24 | ED_ITS ---
<Statement entered by Pedro Witt DO - 05/18/23 11:01> This patient was cared for by the midlevel practitioner who saw evaluated and composed this medical record. She reviewed the case with me in real-time while the patient was present in the emergency department. Per [facility] emergency department policy I am providing this addendum to this medical record. I did not personally see or evaluate this patient however his Fidelina as noted Case was discussed in real-time and I agree with the plan of management as outlined. HPI - SOB/Dyspnea 2 General: Chief Complaint: Shortness of Breath/Dyspnea Stated Complaint: SOB Time Seen by Provider: 05/17/23 17:59 Source: patient and family Mode of arrival: ambulatory Limitations: no limitations History of Present Illness: HPI Narrative: Patient presents emergency department today accompanied by her for evaluation treatment of worsening cough and shortness of breath. Patient's chart review shows she has stage IV breast cancer. After talking to the patient, she was placed on at home oxygen, 2 L by nasal cannula, approximately 1 year ago. Patient has had increasing difficulty breathing since that time but states acutely over the last week has noticed increased cough with some sputum production, and chest tightness. Her reports that in the past she has had a pleural effusion requiring a thoracentesis. Patient has had nasal congestion during this time and believes she might of been running a low-grade fever. She has not had any significant worsening of any bilateral lower extremity edema. Fortunately, patient is stage IV breast cancer and is followed by oncology-Dr. Flaherty, here in [place]. 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 Breast cancer Dyslipidemia Anxiety Essential (primary) hypertension GERD (gastroesophageal reflux disease) Vitamin D deficiency Surgical History History of lumpectomy of right breast (1998) History of left breast biopsy (05/2022) Ultrasound-guided biopsies of left breast and left axillary lymph node History of inferior vena caval filter placement (05/2022) Removed in August 2022 History of appendectomy History of cholecystectomy History of hysterectomy Total knee replacement status LEFT Family History Brother Cancer Dementia Mother Cancer Sister CAD (coronary artery disease) Son CAD (coronary artery disease) Diabetes Daughter Lung disease Denies family history of Hyperlipidemia Psychiatric illness Suicide Stroke Social History Smoking and tobacco/nicotine status: former use of tobacco/nicotine Quit status (tobacco/nicotine): has quit using Year quit tobacco: 1993 Former quit date comment: smoked 20 years Second hand smoke exposure: No Alcohol intake: never Substance/Drug Use: never Caregiver/support person: No Lives independently: Yes Household members: spouse Housing: House Marital status: service: No Current occupational status: retired Do you think of yourself as: Straight/Heterosexual Current gender identity: Female Physical Exam 2 Const: COMMON NORMALS: no acute distress, patient oriented x3 and alert G ENERAL APPEARANCE: well kempt OTHER: Nontoxic-appearing the patient does look fatigued. However she is pleasant, social. Answers her own history. HENMT: OTHER: Mucous membranes are moist. No signs of active rhinorrhea. Eye: COMMON NORMALS: Equal, round and reactive pupils present, EOMs intact bilaterally and conjunctivae normal CONJUNCTIVA: Yes conjunctivae normal P UPIL: Yes Equal, round and reactive pupils present Lymph: LYMPHATIC: no lymphadenopathy noted Resp: COMMON NORMALS: normal respiratory effort, No retractions and No use of accessory muscles OTHER: No sounds of wheezing or stridor. Lung sounds do sound diminished in bilateral lung baumann. Patient is able to speak in full sentences. Patient is on 2 L by nasal cannula in the room with an oxygen saturation of 98%. Cardio: COMMON NORMALS: regular rate RATE: regular rate : COMMON NORMALS: Yes no CVA tenderness BLADDER/KIDNEY EXAM: Yes no CVA tenderness Back/Pelvis: COMMON NORMALS: no CVA tenderness, thoracic and lumbar spine normal to inspection and thoraco-lumbar ROM normal Extremity: COMMON NORMALS: normal to inspection, full ROM and no pedal edema Neuro: COMMON NORMALS: patient oriented x3 SENSORIUM/ORIENTATION: Yes alert Psych: COMMON NORMALS: Normal thought process present and speech normal A PPEARANCE: Yes grossly normal and Yes well kempt ATTITUDE: Yes calm and Yes engaged SPEECH: Yes normal speech THOUGHT PROCESS: Normal thought process present Skin: COMMON NORMALS: no rashes or lesions noted and turgor normal GENERAL SKIN EXAM: no rashes or lesions noted and turgor normal OTHER: No appreciable edema in the lower extremities. Course 2 Vital Signs: Vital signs: Vital Signs Temperature 98.4 F 05/17/23 16:51 Pulse Rate 88 05/17/23 21:08 Respiratory Rate 16 05/17/23 19:25 Blood Pressure 161/65 05/17/23 21:08 Pulse Oximetry 94 05/17/23 21:08 Oxygen Delivery Me thod Room Air 05/17/23 19:25 MDM - SOB/Dyspnea Medical Decision Making Patient presented to the emergency department today for concerns of worsening shortness of breath and cough. Patient was negative for COVID and influenza. She does have a history of pleural effusion requiring drainage however, today there is very minimal fluid noted on chest x-ray. However, there is concerns for an infiltrate in the left lower lobe. This could account for the patient feeling more poorly and having a worsening shortness of breath. Patient's lab work is stable and as she was complaining of more left-sided chest discomfort and shortness of breath, we did run a troponin. 2-hour troponin revealed a delta of very minimal change without acute concerns of cardiac involvement. I did discuss the case with Dr. Witt given the patient's extensive history of cancer and at home oxygen requirement. While the patient has been here in the emergency department we have kept her on 2 L and is regularly in the upper 90s percent. With the x-ray findings and patient's history, we will treat with antibiotics to cover the finding of the left lower lobe infiltrate. Patient was also given a Tessalon Perle here in the emergency department. Prescription provided for continued antibiotic therapy for home but I did recommend she reach out to her oncologist/primary care doctor to make them aware of her evaluation here in the emergency department as well as her current treatment plan is they can continue to monitor and have recheck until she is feeling back at baseline. However, with the weekend and holiday coming up we discussed strict return precautions for any acute change or worsening. Patient and verbalized understanding and agreement to treatment plan. Differential Diagnosis Likely community acquired pneumonia and pulmonary embolism; Unlikely acute exacerbation of chronic obstructive airways disease, congestive heart failure or asthma with exacerbation Lab Data 05/17/23 18:28 05/17/23 18: Labs/Radiology: Radiology Impressions Chest X-Ray 05/17/23 17:15 IMPRESSION: 1. Left mid to lower lung field ground-glass airspace infiltrate. 2. Trace right pleural effusion. 3. Right lower lobe calcified granuloma. 4. Cardiomegaly. 5. Bilateral suspected chronic humeral neck fractures. Laboratory Results WBC 9.53 10^3/uL (3.29-11.43) 05/17/23 18: RBC 3.99 10^6/uL (3.85-5.65) 05/17/23 18: Hgb 11.50 g/dL (11.27-16.99) 05/17/23 18: Hct 37.4 % (36-47) 05/17/23 18: MCV 93.7 fl (85-98) 05/17/23 18: MCH 28.8 pg (27-33) 05/17/23 18: MCHC 30.7 g/dL (30-55) 05/17/23 18: RDW 15.3 % (12.1-15.1) H 05/17/23 18: Plt Count 171 10^3/cmm (157-399) 05/17/23 18: MPV 10.4 fL (7.4-10.4) 05/17/23 18: Neut % (Auto) 72.6 % 05/17/23 18: Lymph % (Auto) 21.7 % 05/17/23 18: [place] % (Auto) 4.3 % 05/17/23 18: Eos % (Auto) 0.3 % 05/17/23 18: Baso % (Auto) 0.3 % 05/17/23 18: Neut # (Auto) 6.91 10^3/uL (1.8-7.7) 05/17/23 18: Lymph # (Auto) 2.1 10^3/uL (0.8-4.8) 05/17/23 18: [place] # (Auto) 0.4 10^3/uL (0.2-0.9) 05/17/23 18:28 Eos # (Auto) 0.0 10^3/uL (0.0-0.8) 05/17/23 18:28 Baso # (Auto) 0.0 10^3/uL (0.0-0.1) 05/17/23 18: Nucleated RBC % (auto) 0 % 05/17/23 18: Nucleated RBCs # 0.0 /100WBC 05/17/23 18:28 Sodium 139 mmol/L (136-145) 05/17/23 18:28 Potassium 3.8 mmol/L (3.5-5.1) 05/17/23 18: Chloride 98 mmol/L (98-107) 05/17/23 18: Carbon Dioxide 35 mmol/L (22-29) H 05/17/23 18: Anion Gap 9.8 (5-19) 05/17/23 18: BUN 14 mg/dL (8-23) 05/17/23 18: Creatinine 1.0 mg/dL (0.5-0.9) H 05/17/23 18:28 GFR Calculation Not Reportable 05/17/23 18: Glucose 93 mg/dL (65-115) 05/17/23 18: Calculated Osmolality 288 mOsm/kg (285-295) 05/17/23 18: Calcium 9.3 mg/dL (8.5-10.5) 05/17/23 18: Total Bilirubin 0.2 mg/dL (0.15-1.2) 05/17/23 18: AST 14 U/L (0-32) 05/17/23 18:28 ALT 11 U/L (0-33) 05/17/23 18:28 Alkaline Phosphatase 81 U/L (35-105) 05/17/23 18:28 Troponin T Baseline 19 ng/L (0-10) H 05/17/23 18:28 Troponin T 120 Minute 18.87 ng/L (0-10) H 05/17/23 20:12 Delta Troponin T -0.13 ABS# (0-10) L 05/17/23 20:12 Total Protein 7.0 g/dL (6.6-8.7) 05/17/23 18:28 Albumin 4.1 g/dL (3.5-5.2) 05/17/23 18:28 Globulin 2.9 g/dL (1.3-4.6) 05/17/23 18:28 Influenza Type A Ag negative (Negative) 05/17/23 18:37 Influenza Type B Ag negative (Negative) 05/17/23 18:37 SARS-CoV-2 Ag (Rapid) negative (Negative) 05/17/23 18:51 All radiology interpretation(s) finalized by discharge Discharge Plan Discharge Patient Disposition: Home Clinical Impression: Infiltrate of lower lobe of left lung present on imaging study Condition: Stable Prescriptions: New doxycycline hyclate 100 mg tablet 100 mg PO BID 10 Days Qty: 20 0RF No Action diltiazem HCl 30 mg tablet 30 mg PO TID Eliquis 5 mg tablet 5 mg PO BID levetiracetam 500 mg tablet 500 mg PO BID diazepam 5 mg tablet 5 mg PO TID PRN (Reason: anxiety/shaking/nervousness) 30 Days Qty: 90 1RF fluoxetine 10 mg capsule 10 mg PO DAILY Qty: 30 5RF loperamide 2 mg capsule 2 mg PO Q6H PRN morphine 100 mg tablet extended release 100 mg PO Q12H 30 Days Qty: 60 0RF simethicone 125 mg capsule 125 mg PO TID PRN (Reason: bloating) Qty: 30 1RF senna-docusate sodium Tablet PO BID prednisone 10 mg tablet 10 mg PO DAILY Qty: 30 3RF metoprolol succinate 200 mg tablet extended release 24 hr 200 mg PO BEDTIME@2200 Qty: 30 11RF enalapril maleate 20 mg tablet 20 mg PO BID@0800,2200 Qty: 60 11RF amlodipine [Norvasc] 10 mg tablet 10 mg PO DAILY@0800 Qty: 30 11RF ondansetron HCl 4 mg tablet 4 mg PO Q6H PRN (Reason: nausea and vomiting) Qty: 60 1RF diazepam [Valium] 5 mg tablet 5 mg PO ONCE Qty: 1 0RF Rx Instructions: Take 45 minutes prior to PET scan palbociclib 125 mg capsule 125 mg PO DAILY Qty: 21 11RF Rx Instructions: administer on days 1 through 21 of a 28-day treatment cycle furosemide 40 mg tablet See Rx Instructions .ROUTE .COMPLEX Qty: 30 2RF Dose Instruction: TAKE ONE TABLET BY MOUTH DAILY Rx Instructions: TAKE ONE TABLET BY MOUTH DAILY exemestane 25 mg tablet 25 mg PO DAILY Qty: 90 0RF Rx Instructions: must administer after a meal oxycodone 10 mg tablet 10 mg PO Q4H MDD 60mg PRN (Reason: breakthrough pain, moderate) 15 Days Qty: 90 0RF simvastatin 20 mg tablet 20 mg PO DAILY@0800 pantoprazole 40 mg tablet,delayed release (DR/EC) 40 mg PO DAILY Discharge Orders: Discharge ED (Routine); Ordered 05/17/23 Ordered By: Marsha Wise Referrals: Mitchell Dior DO [Primary Care Provider] - Discharge Diet: Usual diet Discharge Activity: Increase activity as tolerated Patient Instructions: Pneumonia (ED) Activity Restrictions/Additional Instructions: Lab work today is stable. We did do a cardiac evaluation today which revealed no acute concerns. The chest x-ray shows no large pleural effusions as you have had in the past but, the radiologist was concerned of early infiltrate of your left lower lung region. This could indicate an pneumonia. Given your history with cancer and requiring supplemental oxygen, the emergency room physician and I today believe it is best practice to provide you antibiotics to cover for potential pneumonias. We asked you to carefully monitor your symptoms at home. If you develop signs of respiratory distress where small increases in your at home oxygen are not providing you relief we do recommend you be seen and reevaluated again. We also recommend you reach out to your oncologist and or your primary care doctor to make them aware of your evaluation here in the emergency department today so they can continue to monitor you. Coding Level of Care Code ED Cloud Architect for Denise Cunningham
[2023-05-17 18:37] LABS: Basophils % 0.3 %; Eosinophils % 0.3 %; Hematocrit 37.4 % (36-47); Lymphocytes # 2.1 10^3/uL (0.8-4.8); Lymphocytes % 21.7 %; Mean Corpuscular HGB Conc 30.7 g/dL (30-55); Mean Corpuscular Hemoglobin 28.8 pg (27-33); Mean Corpuscular Volume 93.7 fl (85-98); Mean Platelet Volume 10.4 fL (7.4-10.4); Monocytes # 0.4 10^3/uL (0.2-0.9); Monocytes % 4.3 %; Neutrophils # 6.91 10^3/uL (1.8-7.7); Neutrophils % 72.6 %; Nucleated Red Blood Cells % 0 %; Platelet Count 171 10^3/cmm (157-399); Red Blood Count 3.99 10^6/uL (3.85-5.65); Red Cell Distribution Width 15.3 % (12.1-15.1); White Blood Count 9.53 10^3/uL (3.29-11.43)
[2023-05-17 18:55] LABS: Troponin(5th) Baseline 19 ng/L (0-10)
[2023-05-17 18:57] LABS: Alanine Aminotransferase 11 U/L (0-33); Albumin Level 4.1 g/dL (3.5-5.2); Alkaline Phosphatase 81 U/L (35-105); Anion Gap 9.8 (5-19); Aspartate Amino Transferase 14 U/L (0-32); Blood Urea Nitrogen 14 mg/dL (8-23); Calcium 9.3 mg/dL (8.5-10.5); Carbon Dioxide 35 mmol/L (22-29); Chloride 98 mmol/L (98-107); Globulin 2.9 g/dL (1.3-4.6); Glucose 93 mg/dL (65-115); Osmolality Calculated 288 mOsm/kg (285-295); Potassium 3.8 mmol/L (3.5-5.1); Sodium 139 mmol/L (136-145); Total Bilirubin 0.2 mg/dL (0.15-1.2)
[2023-05-17 19:02] LABS: Influenza A by IFA negative (Negative); Influenza B by IFA negative (Negative)
[2023-05-17 19:09] LABS: SARS Covid-2 Antigen negative (Negative)
--- NOTE | 2023-05-17 19:14 | ECG_ITS ---
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 Measurements Intervals [place] Rate: 64 P: 81 IN: 194 QRS: 28 QRSD: 94 T: 49 QT: 414 QTc: 429 Interpretive Statements SINUS RHYTHM MINIMAL VOLTAGE CRITERIA FOR LVH, CONSIDER NORMAL VARIANT [MEETS CRITERIA IN ONE OF: R(aVL), S(V1), R(V5), R(V5/V6)+S(V1)] Compared to ECG 05/17/2023 18:09:06 No significant changes Electronically Signed On 05-17-2023 20:24:06 SASH INSTALLER by Butch Ortiz M.D. [id number]
[2023-05-17 19:25] VITALS: BP 134/53; PULSE 67; RESP 16
[2023-05-17] MEDS: doxycycline 100 MG in sodium chloride 0.9% (plus) 100 ML IV (19:58)
[2023-05-17 20:35] LABS: Troponin 5 2HR 18.87 ng/L (0-10)
[2023-05-17 20:36] LABS: Troponin 5 2HR Delta -0.13 ABS# (0-10)
[2023-05-17] MEDS: benzonatate 100 mg Capsule 200 MG PO (21:03)
[2023-05-17 21:08] VITALS: BP 161/65; PULSE 88; O2SAT 94
== END 2023-05-17 21:11 | disposition home or self-care (01) ==
PROVIDERS: Emergency Provider Physician Assistant; PCP Family Medicine
DX: R91.8 Other nonspecific abnormal finding of lung field (principal); I11.9 Hypertensive heart disease without heart failure; Z79.01 Long term (current) use of anticoagulants; Z11.52 Encounter for screening for COVID-19; Z85.3 Personal history of malignant neoplasm of breast; E78.5 Hyperlipidemia, unspecified
CPT/HCPCS: 36415; 71045; 80053; 84484; 85025; 87426; 87804; 93005; 96365; 99285; J3490

== ENCOUNTER 2023-05-23 15:37 | Emergency (ER) | payer MEDICARE, MEDICAID, SELFPAY ==
[2023-05-23 15:37] VITALS: BMI 23.8
[2023-05-23 15:41] VITALS: BP 152/68; PULSE 65; RESP 18; TEMP 37.1; O2SAT 93
--- NOTE | 2023-05-23 15:41 | ED_ITS ---
HPI - SOB/Dyspnea 2 General: Chief Complaint: Shortness of Breath/Dyspnea Stated Complaint: sob Time Seen by Provider: 05/23/23 15:38 History of Present Illness: HPI Narrative: Patient presents to the ER with complaints of worsening shortness of breath. This been going on for about 2 weeks. Patient was just seen several days ago diagnosed with pneumonia and sent home on antibiotics. She says these have not helped and she is can progressively continue to go downhill. Patient does say about 3 months ago she had to come in the hospital and have her lung tapped as there was too much fluid on it. 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 Breast cancer Dyslipidemia Anxiety Essential (primary) hypertension GERD (gastroesophageal reflux disease) Vitamin D deficiency Surgical History History of lumpectomy of right breast (1998) History of left breast biopsy (05/2022) Ultrasound-guided biopsies of left breast and left axillary lymph node History of inferior vena caval filter placement (05/2022) Removed in August 2022 History of appendectomy History of cholecystectomy History of hysterectomy Total knee replacement status LEFT Family History Brother Cancer Dementia Mother Cancer Sister CAD (coronary artery disease) Son CAD (coronary artery disease) Diabetes Daughter Lung disease Denies family history of Hyperlipidemia Psychiatric illness Suicide Stroke Social History Smoking and tobacco/nicotine status: former use of tobacco/nicotine Quit status (tobacco/nicotine): has quit using Year quit tobacco: 1993 Former quit date comment: smoked 20 years Second hand smoke exposure: No Alcohol intake: never Substance/Drug Use: never Caregiver/support person: No Lives independently: Yes Household members: spouse Housing: House Marital status: service: No Current occupational status: retired Do you think of yourself as: Straight/Heterosexual Current gender identity: Female Physical Exam 2 Const: COMMON NORMALS: no acute distress, average body habitus, patient oriented x3, no limitations, healthy appearing, alert and well nourished HENMT: COMMON NORMALS: normocephalic, atraumatic, hearing grossly normal bilaterally, external ears normal, Normal external nose present, moist oral mucous membranes and oropharynx normal HEAD & SCALP: normocephalic and atraumatic NOSE: Normal external nose present EXTERNAL EAR: Yes external ears normal Eye: COMMON NORMALS: Equal, round and reactive pupils present, EOMs intact bilaterally, conjunctivae normal and no scleral icterus CONJUNCTIVA: Yes conjunctivae normal PUPIL: Yes Equal, round and reactive pupils present Neck/C-Spine: COMMON NORMALS: no JVD Chest: COMMONS NORMALS: normal inspection of the chest and normal palpation of entire chest wall Resp: COMMON NORMALS: normal respiratory effort, No retractions, No use of accessory muscles and clear to auscultation bilaterally AUSCULTATION: clear to auscultation bilaterally Cardio: COMMON NORMALS: no JVD, regular rate, regular rhythm, S1 normal heart sound present, S2 normal heart sound present, No gallops present (Cardio), No clicks present (Cardio), No murmurs present (Cardio) and No rub (Cardio) R ATE: regular rate RHYTHM: regular rhythm HEART SOUNDS: S1 normal heart sound present and S2 normal heart sound present GI: COMMON NORMALS: Normal to inspection, nondistended, normoactive bowel sounds present, Soft to palpation, non-tender, No hepatosplenomegaly present and no masses PALPATION: Yes Soft to palpation and Yes No hepatosplenomegaly present Neuro: COMMON NORMALS: patient oriented x3 SENSORIUM/ORIENTATION: Yes alert Course 2 Vital Signs: Vital signs: Vital Signs Temperature 98.7 F 05/23/23 15:41 Pulse Rate 65 05/23/23 15:41 Respiratory Rate 16 05/23/23 17:03 Blood Pressure 152/68 05/23/23 15:41 Pulse Oximetry 100 05/23/23 17:03 Oxygen Delivery Me thod Room Air 05/23/23 15:41 MDM - SOB/Dyspnea Medical Decision Making Presents to the ER with worsening shortness of breath over the last 2 weeks. Patient was seen here about 3 days ago and got diagnosed with pneumonia and sent home on antibiotics. Lab work was done today as well as chest x-ray that that was compared to the ones done then but no significant change. Patient is on 1 L of oxygen and keeping her oxygen saturation upwards of 96%. Patient will be discharged home. Patient has home oxygen. Patient should continue the antibiotics she was discharged on from the prior visit and follow-up with her family practice physician within the next 7 to 10 days. Differential Diagnosis Unlikely acute exacerbation of chronic obstructive airways disease, congestive heart failure, community acquired pneumonia, asthma with exacerbation or pulmonary embolism Medical Records I reviewed the patient's medical records. Lab Data I reviewed the patient's lab results. 05/23/23 15:51 05/23/23 15:51 Labs/Radiology: Radiology Impressions Chest X-Ray 05/23/23 15:41 IMPRESSION: No significant change. Laboratory Results WBC 7.12 10^3/uL (3.29-11.43) 05/23/23 15:51 RBC 4.19 10^6/uL (3.85-5.65) 05/23/23 15:51 Hgb 12.20 g/dL (11.27-16.99) 05/23/23 15:51 Hct 39.0 % (36-47) 05/23/23 15:51 MCV 93.1 fl (85-98) 05/23/23 15:51 MCH 29.1 pg (27-33) 05/23/23 15:51 MCHC 31.3 g/dL (30-55) 05/23/23 15:51 RDW 14.8 % (12.1-15.1) 05/23/23 15:51 Plt Count 183 10^3/cmm (157-399) 05/23/23 15:51 MPV 9.9 fL (7.4-10.4) 05/23/23 15:51 Neut % (Auto) 76.0 % 05/23/23 15:51 Lymph % (Auto) 20.2 % 05/23/23 15:51 [place] % (Auto) 2.9 % 05/23/23 15:51 Eos % (Auto) 0.0 % 05/23/23 15:51 Baso % (Auto) 0.3 % 05/23/23 15:51 Neut # (Auto) 5.41 10^3/uL (1.8-7.7) 05/23/23 15:51 Lymph # (Auto) 1.4 10^3/uL (0.8-4.8) 05/23/23 15:51 [place] # (Auto) 0.2 10^3/uL (0.2-0.9) 05/23/23 15:51 Eos # (Auto) 0.0 10^3/uL (0.0-0.8) 05/23/23 15:51 Baso # (Auto) 0.0 10^3/uL (0.0-0.1) 05/23/23 15:51 Nucleated RBC % (auto) 0 % 05/23/23 15:51 Nucleated RBCs # 0.0 /100WBC 05/23/23 15:51 PT 14.90 SECONDS (12.1-14.9) 05/23/23 15:51 INR 1.14 (0.8-1.2) 05/23/23 15:51 Sodium 140 mmol/L (136-145) 05/23/23 15:51 Potassium 4.1 mmol/L (3.5-5.1) 05/23/23 15:51 Chloride 96 mmol/L (98-107) L 05/23/23 15:51 Carbon Dioxide 35 mmol/L (22-29) H 05/23/23 15:51 Anion Gap 13.1 (5-19) 05/23/23 15:51 BUN 19 mg/dL (8-23) 05/23/23 15:51 Creatinine 1.1 mg/dL (0.5-0.9) H 05/23/23 15:51 GFR Calculation Not Reportable 05/23/23 15:51 Glucose 120 mg/dL (65-115) H 05/23/23 15:51 Calculated Osmolality 293 mOsm/kg (285-295) 05/23/23 15:51 Calcium 9.8 mg/dL (8.5-10.5) 05/23/23 15:51 Total Bilirubin 0.2 mg/dL (0.15-1.2) 05/23/23 15:51 AST 15 U/L (0-32) 05/23/23 15:51 ALT 10 U/L (0-33) 05/23/23 15:51 Alkaline Phosphatase 82 U/L (35-105) 05/23/23 15:51 NT-Pro-B Natriuret Pep 397 pg/mL (0-450) 05/23/23 15:51 Total Protein 6.9 g/dL (6.6-8.7) 05/23/23 15:51 Albumin 4.2 g/dL (3.5-5.2) 05/23/23 15:51 Globulin 2.7 g/dL (1.3-4.6) 05/23/23 15:51 Procalcitonin 0.05 ng/mL (0-0.5) 05/23/23 15:51 Urine Color Yellow (Yellow) 05/23/23 16:38 Urine Appearance Clear (CLEAR) 05/23/23 16:38 Urine pH 6 (5-7) 05/23/23 16:38 Ur Specific [place] 1.015 (1.005-1.030) 05/23/23 16:38 Urine Protein Neg (Negative) 05/23/23 16:38 Urine Glucose (UA) Norm (Normal) 05/23/23 16:38 Urine Ketones Negative (Negative) 05/23/23 16:38 Urine Blood Neg (Negative) 05/23/23 16:38 Urine Nitrate Negative (Negative) 05/23/23 16:38 Urine Bilirubin Neg (Negative) 05/23/23 16:38 Urine Urobilinogen Norm mg/dL (Negative) 05/23/23 16:38 Ur Leukocyte Esterase Negative (Negative) 05/23/23 16:38 All radiology interpretation(s) finalized by discharge EKG Data EKG 1: I personally reviewed and interpreted this EKG as follows: EKG Interpretation Date: 05/23/23 EKG interpretation time: 15:54 Prior EKG tracings: not available for review Interpretation: EKG showed ventricular rate 50 beats minute, TX interval 175, QRS duration 87, QTc of 423, sinus bradycardia Discharge Plan Discharge Patient Disposition: Home Clinical Impression: Shortness of breath Condition: Stable Prescriptions: No Action diltiazem HCl 30 mg tablet 30 mg PO TID Eliquis 5 mg tablet 5 mg PO BID levetiracetam 500 mg tablet 500 mg PO BID diazepam 5 mg tablet 5 mg PO TID PRN (Reason: anxiety/shaking/nervousness) 30 Days Qty: 90 1RF fluoxetine 10 mg capsule 10 mg PO DAILY Qty: 30 5RF loperamide 2 mg capsule 2 mg PO Q6H PRN simethicone 125 mg capsule 125 mg PO TID PRN (Reason: bloating) Qty: 30 1RF senna-docusate sodium Tablet PO BID prednisone 10 mg tablet 10 mg PO DAILY Qty: 30 3RF metoprolol succinate 200 mg tablet extended release 24 hr 200 mg PO BEDTIME@2200 Qty: 30 11RF enalapril maleate 20 mg tablet 20 mg PO BID@0800,2200 Qty: 60 11RF amlodipine [Norvasc] 10 mg tablet 10 mg PO DAILY@0800 Qty: 30 11RF ondansetron HCl 4 mg tablet 4 mg PO Q6H PRN (Reason: nausea and vomiting) Qty: 60 1RF diazepam [Valium] 5 mg tablet 5 mg PO ONCE Qty: 1 0RF Rx Instructions: Take 45 minutes prior to PET scan palbociclib 125 mg capsule 125 mg PO DAILY Qty: 21 11RF Rx Instructions: administer on days 1 through 21 of a 28-day treatment cycle furosemide 40 mg tablet See Rx Instructions .ROUTE .COMPLEX Qty: 30 2RF Dose Instruction: TAKE ONE TABLET BY MOUTH DAILY Rx Instructions: TAKE ONE TABLET BY MOUTH DAILY exemestane 25 mg tablet 25 mg PO DAILY Qty: 90 0RF Rx Instructions: must administer after a meal oxycodone 10 mg tablet 10 mg PO Q4H MDD 60mg PRN (Reason: breakthrough pain, moderate) 15 Days Qty: 90 0RF morphine 100 mg tablet extended release 100 mg PO Q12H 30 Days Qty: 60 0RF simvastatin 20 mg tablet 20 mg PO DAILY@0800 doxycycline hyclate 100 mg tablet 100 mg PO BID 10 Days Qty: 20 0RF pantoprazole 40 mg tablet,delayed release (DR/EC) 40 mg PO DAILY Discharge Orders: Discharge ED (Routine); Ordered 05/23/23 Ordered By: Yamil Jackson Referrals: Mitchell Dior DO [Primary Care Provider] - 1 week Patient Instructions: Shortness of Breath (ED) Activity Restrictions/Additional Instructions: Your blood work and chest x-ray in ER today was no different than it was in your previous visit. This means your condition has not worsened. Please continue your antibiotics from your previous visit and please follow-up with your family practice physician within the next 7 to 10 days for further evaluation and management. Coding Level of Care Code ED Miniature Set Designer for Denise Cunningham
--- NOTE | 2023-05-23 15:41 | ECG_ITS ---
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 Measurements Intervals [place] Rate: 58 P: 70 NH: 175 QRS: 73 QRSD: 87 T: 75 QT: 426 QTc: 420 Interpretive Statements SINUS BRADYCARDIA Compared to ECG 05/17/2023 19:31:38 Sinus rhythm no longer present Electronically Signed On 05-23-2023 17:40:41 SECURITY COMPLIANCE ENGINEER by Gabriele Honeycutt M.D. [id number]
--- NOTE | 2023-05-23 15:41 | XRR_ITS ---
PROCEDURE INFORMATION: Exam: XR Chest Exam date and time: 05/23/2023 4:07 PM Age: 82 years old Clinical indication: Dyspnea TECHNIQUE: Imaging protocol: Radiologic exam of the chest. Views: 1 view. COMPARISON: CR (CHEST, ) 05/17/2023 5:23 PM FINDINGS: Lungs: No new focal consolidation. Similar left lower lung hazy opacities. Pleural spaces: No significant pleural effusion. No pneumothorax. Heart/Mediastinum: Heart size unchanged. Bones/joints: No acute findings. XR/XR chest 1V portable [id number] IMPRESSION: No significant change.
[2023-05-23 16:02] LABS: Basophils % 0.3 %; Lymphocytes # 1.4 10^3/uL (0.8-4.8); Lymphocytes % 20.2 %; Mean Corpuscular HGB Conc 31.3 g/dL (30-55); Mean Corpuscular Hemoglobin 29.1 pg (27-33); Mean Corpuscular Volume 93.1 fl (85-98); Mean Platelet Volume 9.9 fL (7.4-10.4); Monocytes # 0.2 10^3/uL (0.2-0.9); Monocytes % 2.9 %; Neutrophils # 5.41 10^3/uL (1.8-7.7); Nucleated Red Blood Cells % 0 %; Platelet Count 183 10^3/cmm (157-399); Red Blood Count 4.19 10^6/uL (3.85-5.65); Red Cell Distribution Width 14.8 % (12.1-15.1); White Blood Count 7.12 10^3/uL (3.29-11.43)
[2023-05-23 16:12] LABS: INR 1.14 (0.8-1.2)
[2023-05-23 16:27] LABS: NT Pro B Type Natriuretic Pept 397 pg/mL (0-450); Procalcitonin 0.05 ng/mL (0-0.5)
[2023-05-23 16:38] LABS: Alanine Aminotransferase 10 U/L (0-33); Albumin Level 4.2 g/dL (3.5-5.2); Alkaline Phosphatase 82 U/L (35-105); Anion Gap 13.1 (5-19); Aspartate Amino Transferase 15 U/L (0-32); Blood Urea Nitrogen 19 mg/dL (8-23); Calcium 9.8 mg/dL (8.5-10.5); Carbon Dioxide 35 mmol/L (22-29); Chloride 96 mmol/L (98-107); Globulin 2.7 g/dL (1.3-4.6); Glucose 120 mg/dL (65-115); Osmolality Calculated 293 mOsm/kg (285-295); Potassium 4.1 mmol/L (3.5-5.1); Sodium 140 mmol/L (136-145); Total Bilirubin 0.2 mg/dL (0.15-1.2); Total Protein 6.9 g/dL (6.6-8.7)
[2023-05-23 16:47] LABS: Add Urine Microscopic? NO; Charge for UA Resulting for Rev
[2023-05-23 17:03] VITALS: RESP 16; O2SAT 100
[2023-05-23 17:25] LABS: Bilirubin Urine Neg (Negative); Blood Urine Neg (Negative); Glucose Urine UA Norm (Normal); Ketones Urine Negative (Negative); Leukocyte Esterase Urine Negative (Negative); Nitrate Urine Negative (Negative); Protein Urine Neg (Negative); Specific Gravity, Urine 1.015 (1.005-1.030); Urine Appearance Clear (CLEAR); Urine Color Yellow (Yellow); Urobilinogen Urine Norm (Negative); pH Urine 6 (5-7)
== END 2023-05-23 17:04 | disposition home or self-care (01) ==
PROVIDERS: Emergency Provider Emergency Medicine; PCP Family Medicine
DX: R06.02 Shortness of breath (principal); Z79.01 Long term (current) use of anticoagulants; Z87.891 Personal history of nicotine dependence; Z85.3 Personal history of malignant neoplasm of breast; E78.5 Hyperlipidemia, unspecified; I10 Essential (primary) hypertension
CPT/HCPCS: 36415; 71045; 80053; 81003; 83880; 84145; 85025; 85610; 93005; 99285

== ENCOUNTER 2023-06-16 12:15 | Emergency (ER) | payer MEDICARE, MEDICAID, SELFPAY ==
[2023-06-16 12:16] VITALS: BMI 24.2
[2023-06-16 12:18] VITALS: BP 156/68; PULSE 79; RESP 16; TEMP 37.1; O2SAT 91
--- NOTE | 2023-06-16 12:26 | CTR_ITS ---
PROCEDURE INFORMATION: Exam: CT Lumbar Spine Without Contrast Exam date and time: 06/16/2023 12:44 PM Age: 82 years old Clinical indication: Injury or trauma; Fall; Blunt trauma (contusions or hematomas) TECHNIQUE: Imaging protocol: Computed tomography of the lumbar spine without contrast. Radiation optimization: All CT scans at this facility use at least one of these dose optimization techniques: automated exposure control; mA and/or kV adjustment per patient size (includes targeted exams where dose is matched to clinical indication); or iterative reconstruction. COMPARISON: MR lumbar spine wo con* [id number] 03/27/2021 2:14 PM RADIATION DOSE METRICS: Total DLP (mGy-cm): 503.56 FINDINGS: Bones/joints: There is an old compression fracture involving L1 which is not significantly changed compared with the prior CT scan from 2019 or the MRI from 2020. There is approximately 50% height loss on the left side of this L1 vertebral body and approximately 40% height loss on the right side. There is retropulsion involving the superior posterior aspect of this fracture. There is a superior compression fracture at L3 which was not present on the 2019 study but was present on the more recent MRI from 2020 I believe it was acute or subacute on the 2020 MRI and does not appear to have progressed since that time. There is approximately 50% height loss maximally in the anterior right portion of this vertebral body. There is retropulsion involving the posterosuperior aspect of the fracture. There are no acute lumbar fractures. There are no subluxations. At T12-L1, there is diffuse disc bulge and spondylosis. There are facet degenerative changes and hypertrophy and ligamentum flavum hypertrophy. There is eeyp-up-xtbcrfjg central canal stenosis and uzcc-ou-anohlkex bilateral foraminal stenosis the retropulsion involving the superior posterior aspect of L1 contributes to the spinal stenosis at this level. At L1-L2, there is diffuse disc bulge and spondylosis. There are facet degenerative changes. There is ligamentum flavum hypertrophy. There is yzvq-hb-hnajgapt central canal stenosis. There is hdgw-go-guoqsyyj bilateral foraminal stenosis. At L2-L3, there is diffuse disc bulge and spondylosis. There are facet degenerative changes and hypertrophy. There is moderate central canal stenosis. Retropulsion the superior posterior L3 vertebral body contributes to spinal stenosis at this level. There is bilateral lateral recess stenosis. There is uxrr-bs-raopjkje bilateral foraminal stenosis. At L3-L4, there is diffuse disc bulge and spondylosis. There are facet degenerative changes and hypertrophy. There is ligamentum flavum hypertrophy. There is moderate central canal stenosis. There is bilateral lateral recess stenosis. There is moderate bilateral foraminal stenosis. At L4-L5, there is diffuse disc bulge and spondylosis. There are facet degenerative changes and hypertrophy. There is ligamentum flavum hypertrophy. There is moderate central canal stenosis. There is bilateral lateral recess stenosis there is fsih-ay-kuocohrs bilateral foraminal stenosis At L5-S1, there is diffuse disc bulge and spondylosis. There is superimposed small posterior disc protrusion There are facet degenerative changes and hypertrophy. There is adso-xa-ngtovcgb central canal stenosis. There is bilateral lateral recess stenosis. There is mild bilateral foraminal stenosis There are atherosclerotic changes in the aorta and branch vessels without aneurysm. Sclerotic bony foci are likely bone islands in the absence of any known primary malignancy. Soft tissues: Unremarkable CT/CT lumbar spine wo con* [id number] Impression: 1. Old compression fractures L1 and L3 2. Negative for acute fracture or subluxation 3. Multilevel degenerative disc disease and spondylosis. Multilevel facet degenerative change. 4. Multilevel central canal stenosis. This is most prominent at L2-L3 and L3-L4 and L4-L5 5. Multilevel lateral recess stenosis and multilevel foraminal stenosis. See individual levels above for more complete description
--- NOTE | 2023-06-16 12:27 | CTR_ITS ---
PROCEDURE INFORMATION: Exam: CT Head Without Contrast Exam date and time: 06/16/2023 12:41 PM Age: 82 years old Clinical indication: Injury or trauma; Fall; Blunt trauma (contusions or hematomas) TECHNIQUE: Imaging protocol: Computed tomography of the head without contrast. Radiation optimization: All CT scans at this facility use at least one of these dose optimization techniques: automated exposure control; mA and/or kV adjustment per patient size (includes targeted exams where dose is matched to clinical indication); or iterative reconstruction. COMPARISON: CT angio head [id number] 06/16/2022 10:44 AM RADIATION DOSE METRICS: Total DLP (mGy-cm): 1044.56 FINDINGS: Brain: No intracranial hemorrhage, edema or other acute abnormality is seen in the brain. There is generalized chronic atrophy with chronic white matter ischemic changes. 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 Cerebral ventricles: Mild ventricular prominence consistent with chronic atrophy. Paranasal sinuses: Visualized sinuses are unremarkable. No fluid levels. Mastoid air cells: Visualized mastoid air cells are well aerated. Bones/joints: Unremarkable. No acute fracture. Soft tissues: Unremarkable. CT/CT head wo con* [id number] IMPRESSION: No acute intracranial abnormality.
--- NOTE | 2023-06-16 12:45 | ED_ITS ---
HPI - Back Pain/Injury 2 General: Chief Complaint: Back Pain/Injury Stated Complaint: BACK PAIN S/P FALL Time Seen by Provider: 06/16/23 12:18 Source: patient Mode of arrival: ambulatory History of Present Illness: 82-year-old female with a known history of breast cancer with potential mediastinal and lung involvement presents emergency room after stumbling and falling with a significant low back pain. PET scan done February 26, 2023 did not show any bony involvement. Patient takes narcotics daily for pain control has worsening pain since the fall. She is on Eliquis for. She has only taken her first morning doses of pain medications today. MD elicited complaint: back pain Pertinent past history: recent trauma Onset (ago): day(s) Timing: constant Severity: severe Quality: sharp Location: lumbar spine Exacerbating factors: none, movement, sitting upright and walking Relieving factors: supine Associated symptoms: Deny abdominal pain, arthralgias, chills, change in bowel habits, difficulty walking, dysuria, fatigue, fecal incontinence, fever(s), hematuria, myalgias, nausea, numbness, syncope, tingling/numbness/burning, urinary frequency, urinary urgency, vomiting or weakness Review of Systems 2 Const: Denies: fever(s), chills or fatigue Card: Denies: syncope Resp: Denies: dyspnea GI: Denies: abdominal pain, nausea, vomiting, fecal incontinence or change in bowel habits : Denies: flank pain, dysuria, urinary frequency, urinary urgency or hematuria Musc: Denies: neck pain or back pain Skin/Breast: Denies: rash Neuro: Denies: difficulty walking PFSH ED 2 PFSH: Medical History Fracture of humeral head, left, closed History of seizures 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 History of GI bleed (05/2022) On anticoagulation Atrial fibrillation History of thromboembolism 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 Breast cancer Dyslipidemia Anxiety Essential (primary) hypertension GERD (gastroesophageal reflux disease) Vitamin D deficiency Surgical History History of lumpectomy of right breast (1998) History of left breast biopsy (05/2022) Ultrasound-guided biopsies of left breast and left axillary lymph node History of inferior vena caval filter placement (05/2022) Removed in August 2022 History of appendectomy History of cholecystectomy History of hysterectomy Total knee replacement status LEFT Family History Brother Cancer Dementia Mother Cancer Sister CAD (coronary artery disease) Son CAD (coronary artery disease) Diabetes Daughter Lung disease Denies family history of Hyperlipidemia Psychiatric illness Suicide Stroke Social History Smoking and tobacco/nicotine status: former use of tobacco/nicotine Quit status (tobacco/nicotine): has quit using Year quit tobacco: 1993 Former quit date comment: smoked 20 years Second hand smoke exposure: No Alcohol intake: never Substance/Drug Use: never Caregiver/support person: No Lives independently: Yes Household members: spouse Housing: House Marital status: service: No Current occupational status: retired Do you think of yourself as: Straight/Heterosexual Current gender identity: Female Physical Exam 2 Const: GENERAL APPEARANCE: cooperative and comfortable O RIENTATION/CONSCIOUSNESS: Yes awake, Yes oriented to person, Yes oriented to place and Yes oriented to time HENMT: COMMON NORMALS: normocephalic, atraumatic and hearing grossly normal bilaterally HEAD & SCALP: normocephalic and atraumatic Resp: COMMON NORMALS: normal respiratory effort, No retractions, No use of accessory muscles and clear to auscultation bilaterally AUSCULTATION: clear to auscultation bilaterally Cardio: COMMON NORMALS: regular rate, regular rhythm and No murmurs present (Cardio) RATE: regular rate RHYTHM: regular rhythm GI: COMMON NORMALS: Soft to palpation and No hepatosplenomegaly present A USCULTATION: Yes normoactive bowel sounds PALPATION: Yes Soft to palpation, No Tenderness to palpation present (GI), No Guarding due to palpation present (GI) and Yes No hepatosplenomegaly present : COMMON NORMALS: Yes no CVA tenderness BLADDER/KIDNEY EXAM: Yes no CVA tenderness Back/Pelvis: COMMON NORMALS: no CVA tenderness Extremity: COMMON NORMALS: normal to inspection, capillary refill normal, no clubbing, cyanosis or edema, no calf tenderness and no pedal edema Neuro: SENSORIUM/ORIENTATION: Yes oriented to person, Yes oriented to place and Yes oriented to time Skin: COMMON NORMALS: no rashes or lesions noted GENERAL SKIN EXAM: no rashes or lesions noted Course 2 Vital Signs: Vital signs: Vital Signs Temperature 98.7 F 06/16/23 14:43 Pulse Rate 79 06/16/23 14:43 Respiratory Rate 16 06/16/23 14:43 Blood Pressure 156/68 06/16/23 14:43 Pulse Oximetry 91 06/16/23 14:43 Oxygen Delivery Me thod Room Air 06/16/23 12:18 MDM - Back Pain/Injury Medical Decision Making Old compression fractures no new or acute fractures a lot of chronic changes but nothing that appears acute. Improved with pain medications. Discharge home with pain meds. Suspect more musculoskeletal if persists may need further evaluation such as bone scan. Previous PET scan done a few months ago did not show any bony mets. No dysuria urgency or frequency point tenderness on exam Differential Diagnosis Likely lumbar radiculopathy, strain of lumbar region and thoracic back pain Medical Records I reviewed the patient's medical records. Labs I reviewed the patient's lab results. 06/16/23 13:11 06/16/23 13:11 Radiology Impressions Lumbar Spine CT 06/16/23 12:26 Impression: 1. Old compression fractures L1 and L3 2. Negative for acute fracture or subluxation 3. Multilevel degenerative disc disease and spondylosis. Multilevel facet degenerative change. 4. Multilevel central canal stenosis. This is most prominent at L2-L3 and L3-L4 and L4-L5 5. Multilevel lateral recess stenosis and multilevel foraminal stenosis. See individual levels above for more complete description Head CT 06/16/23 12:27 IMPRESSION: No acute intracranial abnormality. Laboratory Results WBC 10.76 10^3/uL (3.29-11.43) 06/16/23 13:11 RBC 4.36 10^6/uL (3.85-5.65) 06/16/23 13:11 Hgb 12.80 g/dL (11.27-16.99) 06/16/23 13:11 Hct 40.8 % (36-47) 06/16/23 13:11 MCV 93.6 fl (85-98) 06/16/23 13:11 MCH 29.4 pg (27-33) 06/16/23 13:11 MCHC 31.4 g/dL (30-55) 06/16/23 13:11 RDW 13.5 % (12.1-15.1) 06/16/23 13:11 Plt Count 190 10^3/cmm (157-399) 06/16/23 13:11 MPV 9.6 fL (7.4-10.4) 06/16/23 13:11 Neut % (Auto) 86.9 % 06/16/23 13:11 Lymph % (Auto) 9.0 % 06/16/23 13:11 [place] % (Auto) 2.2 % 06/16/23 13:11 Eos % (Auto) 0.0 % 06/16/23 13:11 Baso % (Auto) 0.4 % 06/16/23 13:11 Neut # (Auto) 9.35 10^3/uL (1.8-7.7) H 06/16/23 13:11 Lymph # (Auto) 1.0 10^3/uL (0.8-4.8) 06/16/23 13:11 [place] # (Auto) 0.2 10^3/uL (0.2-0.9) 06/16/23 13:11 Eos # (Auto) 0.0 10^3/uL (0.0-0.8) 06/16/23 13:11 Baso # (Auto) 0.0 10^3/uL (0.0-0.1) 06/16/23 13:11 Nucleated RBC % (auto) 0 % 06/16/23 13:11 Nucleated RBCs # 0.0 /100WBC 06/16/23 13:11 Sodium 139 mmol/L (136-145) 06/16/23 13:11 Potassium 3.7 mmol/L (3.5-5.1) 06/16/23 13:11 Chloride 93 mmol/L (98-107) L 06/16/23 13:11 Carbon Dioxide 37 mmol/L (22-29) H 06/16/23 13:11 Anion Gap 12.7 (5-19) 06/16/23 13:11 BUN 13 mg/dL (8-23) 06/16/23 13:11 Creatinine 1.0 mg/dL (0.5-0.9) H 06/16/23 13:11 GFR Calculation Not Reportable 06/16/23 13:11 Glucose 144 mg/dL (65-115) H 06/16/23 13:11 Calculated Osmolality 291 mOsm/kg (285-295) 06/16/23 13:11 Calcium 9.6 mg/dL (8.5-10.5) 06/16/23 13:11 Total Bilirubin 0.3 mg/dL (0.15-1.2) 06/16/23 13:11 AST 25 U/L (0-32) 06/16/23 13:11 ALT 20 U/L (0-33) 06/16/23 13:11 Alkaline Phosphatase 78 U/L (35-105) 06/16/23 13:11 Total Protein 7.1 g/dL (6.6-8.7) 06/16/23 13:11 Albumin 3.8 g/dL (3.5-5.2) 06/16/23 13:11 Globulin 3.3 g/dL (1.3-4.6) 06/16/23 13:11 All radiology interpretation(s) finalized by discharge Discharge Plan Discharge Patient Disposition: Home Clinical Impression: Lumbar back pain Condition: Stable Prescriptions: New tizanidine 4 mg tablet 4 mg PO Q6H PRN (Reason: muscle spasticity) Qty: 20 0RF Rx Instructions: do not exceed 3 doses per 24 hrs prednisone 20 mg tablet 20 mg PO TID Qty: 15 0RF Rx Instructions: 1 p.o. 3 times daily x3 days, 1 p.o. twice daily x2 days, 1 p.o. daily x2 days Discontinued prednisone 10 mg tablet 10 mg PO QAM No Action diltiazem HCl 30 mg tablet 30 mg PO BID Eliquis 5 mg tablet 5 mg PO BID levetiracetam 500 mg tablet 500 mg PO BID diazepam 5 mg tablet 5 mg PO TID PRN (Reason: anxiety/shaking/nervousness) 30 Days Qty: 90 1RF loperamide 2 mg capsule 2 mg PO Q6H PRN (Reason: Diarrhea) doxycycline hyclate 100 mg capsule 100 mg PO BID 10 Days Qty: 20 0RF Rx Instructions: for 10 days (rx filled 06/11/23) simethicone 125 mg capsule 125 mg PO TID PRN (Reason: bloating) Qty: 30 1RF metoprolol succinate 200 mg tablet extended release 24 hr 200 mg PO BEDTIME@2200 Qty: 30 11RF enalapril maleate 20 mg tablet 20 mg PO BID@0800,2200 Qty: 60 11RF amlodipine [Norvasc] 10 mg tablet 10 mg PO DAILY@0800 Qty: 30 11RF ondansetron HCl 4 mg tablet 4 mg PO Q6H PRN (Reason: nausea and vomiting) Qty: 60 1RF palbociclib 125 mg capsule 125 mg PO DAILY Qty: 21 11RF Rx Instructions: (PT NOT STARTED OF 06/16/23) administer on days 1 through 21 of a 28-day treatment cycle morphine 100 mg tablet extended release 100 mg PO Q8H 30 Days Qty: 90 0RF oxycodone 10 mg tablet 10 mg PO Q4H MDD 60mg PRN (Reason: breakthrough pain, moderate) 15 Days Qty: 90 0RF simvastatin 20 mg tablet 20 mg PO QPM furosemide 40 mg tablet 40 mg PO QAM Senna-S 8.6-50 mg Tablet 1 tab PO BID exemestane 25 mg tablet 25 mg PO QAM Rx Instructions: must administer after a meal pantoprazole 40 mg tablet,delayed release (DR/EC) 40 mg PO QAM Discharge Orders: Discharge ED (Routine); Ordered 06/16/23 Ordered By: Miguel Angel Jim Referrals: Mitchell Dior, [Primary Care Provider] - Discharge Diet: Usual diet Discharge Activity: Resume usual activity Patient Instructions: Opioid Safety, Pain Management Activity Restrictions/Additional Instructions: Thank you for choosing [facility] for your healthcare needs today. Please realize this is an emergency room and that we are providing you with a medical screening exam and this may not be complete and all inclusive of all the testing and or work up that you may need to determine your ailment or severity of your illness. It is very important that you follow up as instructed or that you return to the Emergency Department should you have concerns or if your condition changes or worsens in any way. You are seen today for back pain CT of your back did not show any acute fractures. Continue previously prescribed narcotic pain medications you are given a prescription for prednisone and tizanidine to use as well follow-up with your primary care doctor Coding Level of Care Code ED Maintenance Fitter for Denise Cunningham
[2023-06-16] MEDS: HYDROmorphone 1 mg/mL INJ 1 mL IVP ×2 (13:02→14:34)
[2023-06-16 13:17] LABS: Basophils % 0.4 %; Hematocrit 40.8 % (36-47); Mean Corpuscular HGB Conc 31.4 g/dL (30-55); Mean Corpuscular Hemoglobin 29.4 pg (27-33); Mean Corpuscular Volume 93.6 fl (85-98); Mean Platelet Volume 9.6 fL (7.4-10.4); Monocytes # 0.2 10^3/uL (0.2-0.9); Monocytes % 2.2 %; Neutrophils # 9.35 10^3/uL (1.8-7.7); Neutrophils % 86.9 %; Nucleated Red Blood Cells % 0 %; Platelet Count 190 10^3/cmm (157-399); Red Blood Count 4.36 10^6/uL (3.85-5.65); Red Cell Distribution Width 13.5 % (12.1-15.1); White Blood Count 10.76 10^3/uL (3.29-11.43)
[2023-06-16 13:50] LABS: Alanine Aminotransferase 20 U/L (0-33); Albumin Level 3.8 g/dL (3.5-5.2); Alkaline Phosphatase 78 U/L (35-105); Anion Gap 12.7 (5-19); Aspartate Amino Transferase 25 U/L (0-32); Blood Urea Nitrogen 13 mg/dL (8-23); Calcium 9.6 mg/dL (8.5-10.5); Carbon Dioxide 37 mmol/L (22-29); Chloride 93 mmol/L (98-107); Globulin 3.3 g/dL (1.3-4.6); Glucose 144 mg/dL (65-115); Osmolality Calculated 291 mOsm/kg (285-295); Potassium 3.7 mmol/L (3.5-5.1); Sodium 139 mmol/L (136-145); Total Bilirubin 0.3 mg/dL (0.15-1.2); Total Protein 7.1 g/dL (6.6-8.7)
[2023-06-16 14:43] VITALS: BP 156/68; PULSE 79; RESP 16; TEMP 37.1; O2SAT 91
== END 2023-06-16 14:44 | disposition home or self-care (01) ==
PROVIDERS: Emergency Provider Family Medicine; PCP Family Medicine
DX: M54.50 Low back pain, unspecified (principal); Z79.01 Long term (current) use of anticoagulants; Z87.891 Personal history of nicotine dependence; Z85.3 Personal history of malignant neoplasm of breast; E78.5 Hyperlipidemia, unspecified; I10 Essential (primary) hypertension
CPT/HCPCS: 36415; 70450; 72131; 80053; 85025; 96374; 96376; 99285; J1170

== ENCOUNTER 2023-06-26 13:49 | Emergency (ER) | payer MEDICARE, MEDICAID, SELFPAY ==
[2023-06-26 13:58] VITALS: BP 136/73; PULSE 71; RESP 16; TEMP 36.9; O2SAT 92
--- NOTE | 2023-06-26 14:02 | ED_ITS ---
HPI - Animal Bite General: Chief Complaint: Animal Bite Stated Complaint: dog bite, right hand middle finger Time Seen by Provider: 06/26/23 14:02 History of Present Illness: 83-year-old female comes in today with i njury to the right middle finger. Patient reports 2 days ago one of her dogs accidentally bit her on the middle finger. Patient has been caring for her at home due to inability to get to the doctor's office for evaluation. We have a healing wound noted to the finger with minimal redness and swelling. Distal cap refill and sensations are intact. No streaking or significant redness is noted to the hand. Good range of motion of the hand is noted. 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 Breast cancer Dyslipidemia Anxiety Essential (primary) hypertension GERD (gastroesophageal reflux disease) Vitamin D deficiency Surgical History History of lumpectomy of right breast (1998) History of left breast biopsy (05/2022) Ultrasound-guided biopsies of left breast and left axillary lymph node History of inferior vena caval filter placement (05/2022) Removed in August 2022 History of appendectomy History of cholecystectomy History of hysterectomy Total knee replacement status LEFT Family History Brother Cancer Dementia Mother Cancer Sister CAD (coronary artery disease) Son CAD (coronary artery disease) Diabetes Daughter Lung disease Denies family history of Hyperlipidemia Psychiatric illness Suicide Stroke Social History Smoking and tobacco/nicotine status: former use of tobacco/nicotine Quit status (tobacco/nicotine): has quit using Year quit tobacco: 1993 Former quit date comment: smoked 20 years Second hand smoke exposure: No Alcohol intake: never Substance/Drug Use: never Caregiver/support person: No Lives independently: Yes Household members: spouse Housing: House Marital status: service: No Current occupational status: retired Do you think of yourself as: Straight/Heterosexual Current gender identity: Female Physical Exam Const: COMMON NORMALS: alert Neck/C-Spine: COMMON NORMALS: full ROM Resp: COMMON NORMALS: normal respiratory effort Cardio: COMMON NORMALS: regular rate RATE: regular rate GI: COMMON NORMALS: Soft to palpation and non-tender PALPATION: Yes Soft to palpation Extremity: RIGHT UPPER EXTREMITY: Yes hand & digits (Healing wound to the lateral middle phalanx irregular 1 cm) Neuro: SENSORIUM/ORIENTATION: Yes alert Skin: TRAUMA: laceration (Middle finger right hand) Course Vital Signs: Vital signs: Vital Signs Temperature 98.4 F 06/26/23 13:58 Pulse Rate 71 06/26/23 13:58 Respiratory Rate 16 06/26/23 13:58 Blood Pressure 136/73 06/26/23 13:58 Pulse Oximetry 92 06/26/23 13:58 Oxygen Delivery Me thod Room Air 06/26/23 13:58 MDM - Animal Bite Medical Decision Making 83-year-old female comes in today for complaints of injury to the right hand middle finger. On exam patient has a laceration to the lateral aspect of the middle phalanx of the right third finger. Normal range of motion is noted. Irregular 1 cm laceration with some maceration of tissue. Wound occurred approximately 2 days ago. No significant redness or tenderness or swelling. Distal cap refill and sensation is intact. Differential diagnosis includes not limited to wound infection, fracture, dog bite, foreign body. X-ray showed no foreign body or bony abnormality. Patient has range of motion of the finger wi thout exacerbation of pain. Cap refill is intact. Some mild redness is noted to the finger. Will go ahead and place patient on Augmentin 875 1 tablet twice a day for the next 7 days. Patient was instructed to clean the wound daily with mild soap and water and cover with bacitracin ointment and nonstick dressing. Patient and family both reported understanding of care plan and need for return for worsening symptoms. XR interpretation done by ED provider, pending radiology final review Discharge Plan Discharge Patient Disposition: Home Clinical Impression: Dog bite Qualifiers: Encounter type: initial encounter Qualified Code(s): W54.0XXA - Bitten by dog, initial encounter Laceration of finger Qualifiers: Encounter type: initial encounter Finger: middle finger Damage to nail status: without damage Foreign body presence: without foreign body Laterality: right Qu alified Code(s): S61.212A - Laceration without foreign body of right middle finger without damage to nail, initial encounter Condition: Stable Prescriptions: New amoxicillin-pot clavulanate 875-125 mg tablet 1 tab PO BID Qty: 14 0RF bacitracin zinc 500 unit/gram ointment 1 applic topical DAILY Qty: 28 0RF No Action diltiazem HCl 30 mg tablet 30 mg PO BID Eliquis 5 mg tablet 5 mg PO BID levetiracetam 500 mg tablet 500 mg PO BID diazepam 5 mg tablet 5 mg PO TID PRN (Reason: anxiety/shaking/nervousness) 30 Days Qty: 90 1RF loperamide 2 mg capsule 2 mg PO Q6H PRN (Reason: Diarrhea) doxycycline hyclate 100 mg capsule 100 mg PO BID 10 Days Qty: 20 0RF Rx Instructions: for 10 days (rx filled 06/11/23) simethicone 125 mg capsule 125 mg PO TID PRN (Reason: bloating) Qty: 30 1RF metoprolol succinate 200 mg tablet extended release 24 hr 200 mg PO BEDTIME@2200 Qty: 30 11RF enalapril maleate 20 mg tablet 20 mg PO BID@0800,2200 Qty: 60 11RF amlodipine [Norvasc] 10 mg tablet 10 mg PO DAILY@0800 Qty: 30 11RF ondansetron HCl 4 mg tablet 4 mg PO Q6H PRN (Reason: nausea and vomiting) Qty: 60 1RF palbociclib 125 mg capsule 125 mg PO DAILY Qty: 21 11RF Rx Instructions: (PT NOT STARTED OF 06/16/23) administer on days 1 through 21 of a 28-day treatment cycle morphine 100 mg tablet extended release 100 mg PO Q8H 30 Days Qty: 90 0RF oxycodone 10 mg tablet 10 mg PO Q4H MDD 60mg PRN (Reason: breakthrough pain, moderate) 15 Days Qty: 90 0RF simvastatin 20 mg tablet 20 mg PO QPM furosemide 40 mg tablet 40 mg PO QAM Senna-S 8.6-50 mg Tablet 1 tab PO BID exemestane 25 mg tablet 25 mg PO QAM Rx Instructions: must administer after a meal tizanidine 4 mg tablet 4 mg PO Q6H PRN (Reason: muscle spasticity) Qty: 20 0RF Rx Instructions: do not exceed 3 doses per 24 hrs prednisone 20 mg tablet 20 mg PO TID Qty: 15 0RF Rx Instructions: 1 p.o. 3 times daily x3 days, 1 p.o. twice daily x2 days, 1 p.o. daily x2 days pantoprazole 40 mg tablet,delayed release (DR/EC) 40 mg PO QAM Discharge Orders: Discharge ED (Routine); Ordered 06/26/23 Ordered By: Julio César Saucedo Referrals: Mitchell Dior DO [Primary Care Provider] - Discharge Diet: Usual diet Discharge Activity: Increase activity as tolerated Patient Instructions: Finger Laceration (ED) Activity Restrictions/Additional Instructions: Home and rest. Clean wound daily with mild soap and water. Apply antibiotic ointment and cover. Take oral antibiotics as directed for the next 7 days. Follow-up with primary care in 1 week for recheck. Return to ED for worsening symptoms such as fever greater than 100.4, increasing redness and swelling to the hand, or new concerns. Coding Level of Care Code ED Registration Coordinator for Denise Cunningham
--- NOTE | 2023-06-26 14:23 | XR_ITS ---
WS: [id number] Right hand, 3 views, 06/26/2023 Clinical Data: injury Comparison: Right hand, 06/18/2018. Findings: No fractures or dislocations are seen. The soft tissues are unremarkable. There is mild o steoarthritis of the PIP and DIP joints, 2 through 5 of the right hand. Impression: 1. Negative for fracture or dislocation. 2. 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
[2023-06-26] MEDS: bacitracin ointment Pkt 1 EACH TOPICAL (15:45)
== END 2023-06-26 15:50 | disposition home or self-care (01) ==
PROVIDERS: Emergency Provider Nurse Practitioner Family; PCP Family Medicine
DX: S61.252A Open bite of right middle finger without damage to nail, initial encounter (principal); W54.0XXA Bitten by dog, initial encounter; Z79.01 Long term (current) use of anticoagulants; Z87.891 Personal history of nicotine dependence; Z85.3 Personal history of malignant neoplasm of breast; E78.5 Hyperlipidemia, unspecified; I10 Essential (primary) hypertension
CPT/HCPCS: 73130; 99283

== ENCOUNTER 2023-06-29 15:42 | Emergency (ER) | payer MEDICARE, MEDICAID, SELFPAY ==
[2023-06-29 15:51] VITALS: BP 112/67; PULSE 74; RESP 18; TEMP 36.8; O2SAT 92
[2023-06-29 16:30] VITALS: BP 104/64; PULSE 64; O2SAT 90
--- NOTE | 2023-06-29 17:01 | XRR_ITS ---
PROCEDURE INFORMATION: Exam: XR Right Ribs with PA Chest Exam date and time: 06/29/2023 5:17 PM Age: 83 years old Clinical indication: Injury or trauma; Fall; Rib area; Blunt trauma (contusions or hematomas); Additional info: Trauma with pain TECHNIQUE: Imaging protocol: Radiologic exam of the right ribs with PA chest. Views: 3 views COMPARISON: CR XR chest 1V portable [id number] 05/23/2023 4:07 PM FINDINGS: Lungs: SCATTERED LUNG GRANULOMAS. NO SUSPICIOUS LUNG LESION. Pleural spaces: Unremarkable. No pleural effusion. No pneumothorax. Heart/Mediastinum: Unremarkable. No cardiomegaly. Vasculature: AORTIC ARCH CALCIFICATIONS. Bones/joints: MODERATE DEGENERATIVE DISEASE OF BILATERAL ACROMIOCLAVICULAR JOINTS. NO ACUTE FRACTURE OR DISLOCATION. Soft tissues: SURGICAL CLIPS IN THE RIGHT AXILLA. DEGENERATIVE DISEASE OF BILATERAL GLENOHUMERAL JOINTS WITH CHRONIC DEFORMITIES OF BILATERAL HUMERAL HEADS. Organs: SURGICAL CLIPS POST CHOLECYSTECTOMY. XR/XR ribs RT mn 3V w [id number] IMPRESSION: NO ACUTE POSTTRAUMATIC CHANGES IN THE CHEST. IN PARTICULAR, NO RIB FRACTURE.
[2023-06-29] MEDS: HYDROcodone-acetaminophen 7.5-325 mg Tablet 1 TAB PO (17:26)
[2023-06-29] MEDS: oxymetazoline 0.05% Nasal Spray 15 mL 2 SPRAY NOSTRIL-R (17:26)
[2023-06-29 17:30] VITALS: BP 105/46; PULSE 62; O2SAT 93
--- NOTE | 2023-06-29 17:43 | ED_ITS ---
Documented by User: Sonny Torrez 06/29/23 18:06 HPI - Epistaxis General: Chief complaint: Epistaxis Stated complaint: nose bleed, back pain Time Seen by Provider: 06/29/23 16:30 History of Present Illness: 83-year-old female currently taking Eliq uis history of heart issues as well as current breast cancer presents to the emergency department with 2 complaints patient endorses intermittent epistaxis noted to the right nares has been ongoing last 2 to 3 days. In addition patient does report she sustained a fall approximately 1 week ago she was seen in the ER which ruled out any other lying fractures which she had continued right lateral rib pain. Patient does not endorse any known history of rib fracture she does report it hurts to take deep breaths at times patient endorses that she has not taken anything for her epistaxis however she does use nasal cannula to maintain her oxygen saturations above 90% and which may contribute to drying out her nasal mucosal membranes patient does not endorse any recent fevers or chills reports no other associate symptoms. Associated symptoms: Deny fever(s), headache(s) or vomiting Review of Systems General: Reports: 10 or more systems reviewed and unremarkable except in HPI and below Const: Denies: fever(s), chills, fatigue or malaise Eyes: Denies: change in vision or blurry vision ENMT: Reports: epistaxis Card: Reports: chest pain (Right lateral chest wall pain); Denies: palpitations Resp: Denies: dyspnea or productive cough GI: Denies: abdominal pain, nausea or vomiting : Denies: flank pain Musc: Denies: extremity pain or extremity swelling Skin/Breast: Denies: rash or pruritus Neuro: Denies: headache(s) Psych: Denies: anxiety or depression Joni/Lymph: Denies: easy bleeding All/Imm: Denies: urticaria, throat swelling or facial swelling PFS ED PFSH: Medical History Fracture of humeral head, left, closed History of seizures 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 History of GI bleed (05/2022) On anticoagulation Atrial fibrillation History of thromboembolism 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 Breast cancer Dyslipidemia Anxiety Essential (primary) hypertension GERD (gastroesophageal reflux disease) Vitamin D deficiency Surgical History History of lumpectomy of right breast (1998) History of left breast biopsy (05/2022) Ultrasound-guided biopsies of left breast and left axillary lymph node History of inferior vena caval filter placement (05/2022) Removed in August 2022 History of appendectomy History of cholecystectomy History of hysterectomy Total knee replacement status LEFT Family History Brother Cancer Dementia Mother Cancer Sister CAD (coronary artery disease) Son CAD (coronary artery disease) Diabetes Daughter Lung disease Denies family history of Hyperlipidemia Psychiatric illness Suicide Stroke Social History Smoking and tobacco/nicotine status: former use of tobacco/nicotine Quit status (tobacco/nicotine): has quit using Year quit tobacco: 1993 Former quit date comment: smoked 20 years Second hand smoke exposure: No Alcohol intake: never Substance/Drug Use: never Caregiver/support person: No Lives independently: Yes Household members: spouse Housing: House Marital status: service: No Current occupational status: retired Do you think of yourself as: Straight/Heterosexual Current gender identity: Female Physical Exam Narrative: EXAM NARRATIVE: Patient appears very anxious on exam however appears in mild distress due to right lateral rib pain, no active bleeding appreciated to the right naris. Recent clot appreciated to the right anterior naris no active bleeding noted Const: COMMON NORMALS: no acute distress, patient oriented x3 and healthy a ppearing HENMT: COMMON NORMALS: normocephalic, atraumatic, TM's normal bilaterally and oropharynx normal HEAD & SCALP: normocephalic and atraumatic TYMPANIC MEMBRANE: TM's normal bilaterally Eye: COMMON NORMALS: Equal, round and reactive pupils present and EOMs intact bilaterally PUPIL: Yes Equal, round and reactive pupils present Neck/C-Spine: COMMON NORMALS: full ROM, supple and no JVD Lymph: LYMPHATIC: no lymphadenopathy noted Chest: COMMONS NORMALS: negative for normal inspection of the chest (Reproducible right lateral chest wall pain noted to palpation mild respirat) and negative for normal palpation of entire chest wall Resp: COMMON NORMALS: normal respiratory effort, No retractions and clear to auscultation bilaterally EFFORT & INSPECTION: Yes able to speak in complete sentences and Yes symmetric chest movement AUSCULTATION: clear to auscultation bilaterally Cardio: COMMON NORMALS: no JVD, regular rate and regular rhythm RATE: regular rate RHYTHM: regular rhythm GI: COMMON NORMALS: Normal to inspection, nondistended, normoactive bowel sounds present, Soft to palpation and non-tender INSPECTION: Yes normal to inspection PALPATION: Yes Soft to palpation : COMMON NORMALS: Yes no CVA tenderness BLADDER/KIDNEY EXAM: Yes no CVA tenderness Back/Pelvis: COMMON NORMALS: no CVA tenderness Extremity: COMMON NORMALS: normal to inspection and full ROM Neuro: COMMON NORMALS: patient oriented x3, CN's II-XII intact bilaterally, moves all extremities and no focal motor deficits Psych: COMMON NORMALS: mental status grossly normal, Normal thought process present, cooperative and normal affect THOUGHT PROCESS: Normal thought process present Skin: COMMON NORMALS: no rashes or lesions noted GENERAL SKIN EXAM: no rashes or lesions noted Course Vital Signs: Vital signs: Vital Signs Temperature 98.3 F 06/29/23 15:51 Pulse Rate 61 06/29/23 18:00 Respiratory Rate 18 06/29/23 15:51 Blood Pressure 126/62 06/29/23 18:00 Pulse Oximetry 95 06/29/23 18:00 Oxygen Delivery Me thod Room Air 06/29/23 18:00 MDM - Epistaxis Medical Decision Making Due to patient's significant accident a right-sided rib series will be obtained with a chest x-ray patient will have tranexamic acid introduced into the right nares after blowing it in which will observation. Under clamp and nasal clamp in which patient continues to be bleeding free patient will be discharged patient was provided a dose of hydrocodone for pain control. X-rays were read as unremarkable per radiology no rib fractures appreciated patient will be placed on limited prescription of hydrocodone for pain control we will do an observation. After the TXA is placed in the right nares anticipate discharge home after about an hour of observation to make sure the patient does not rebleed,this patient was signed out to my colleague Dr. Montaño at 1800. Lab Data Radiology Impressions Ribs X-Ray 06/29/23 17:01 IMPRESSION: NO ACUTE POSTTRAUMATIC CHANGES IN THE CHEST. IN PARTICULAR, NO RIB FRACTURE. No radiology studies performed this visit Discharge Plan Discharge Patient Disposition: Home Clinical Impression: Acute anterior epistaxis, Acute chest wall pain, Status post fall, Current use of [facility] anticoagulation Condition: Stable Prescriptions: New hydrocodone-acetaminophen 5-325 mg tablet 1 tab PO Q8H PRN (Reason: pain) Qty: 20 0RF No Action diltiazem HCl 30 mg tablet 30 mg PO BID Eliquis 5 mg tablet 5 mg PO BID levetiracetam 500 mg tablet 500 mg PO BID diazepam 5 mg tablet 5 mg PO TID PRN (Reason: anxiety/shaking/nervousness) 30 Days Qty: 90 1RF loperamide 2 mg capsule 2 mg PO Q6H PRN (Reason: Diarrhea) doxycycline hyclate 100 mg capsule 100 mg PO BID 10 Days Qty: 20 0RF Rx Instructions: for 10 days (rx filled 06/11/23) methadone 10 mg tablet 10 mg PO Q6H 15 Days Qty: 60 0RF oxycodone 10 mg tablet 10 mg PO Q4H MDD 60mg PRN (Reason: breakthrough pain, moderate) 15 Days Qty: 90 0RF simethicone 125 mg capsule 125 mg PO TID PRN (Reason: bloating) Qty: 30 1RF metoprolol succinate 200 mg tablet extended release 24 hr 200 mg PO BEDTIME@2200 Qty: 30 11RF enalapril maleate 20 mg tablet 20 mg PO BID@0800,2200 Qty: 60 11RF amlodipine [Norvasc] 10 mg tablet 10 mg PO DAILY@0800 Qty: 30 11RF ondansetron HCl 4 mg tablet 4 mg PO Q6H PRN (Reason: nausea and vomiting) Qty: 60 1RF palbociclib 125 mg capsule 125 mg PO DAILY Qty: 21 11RF Rx Instructions: (PT NOT STARTED OF 06/16/23) administer on days 1 through 21 of a 28-day treatment cycle simvastatin 20 mg tablet 20 mg PO QPM furosemide 40 mg tablet 40 mg PO QAM Senna-S 8.6-50 mg Tablet 1 tab PO BID exemestane 25 mg tablet 25 mg PO QAM Rx Instructions: must administer after a meal tizanidine 4 mg tablet 4 mg PO Q6H PRN (Reason: muscle spasticity) Qty: 20 0RF Rx Instructions: do not exceed 3 doses per 24 hrs prednisone 20 mg tablet 20 mg PO TID Qty: 15 0RF Rx Instructions: 1 p.o. 3 times daily x3 days, 1 p.o. twice daily x2 days, 1 p.o. daily x2 days amoxicillin-pot clavulanate 875-125 mg tablet 1 tab PO BID Qty: 14 0RF bacitracin zinc 500 unit/gram ointment 1 applic topical DAILY Qty: 28 0RF pantoprazole 40 mg tablet,delayed release (DR/EC) 40 mg PO QAM Discharge Orders: Discharge ED (Routine); Ordered 06/29/23 Ordered By: Sonny Torrez Referrals: Mitchell Dior DO [Primary Care Provider] - 4-7 days Discharge Diet: Advance as tolerated Discharge Activity: Increase activity as tolerated Patient Instructions: Nosebleed (ED), Chest Wall Pain (ED), Epistaxis - Adult, Opioid Safety, Pain Management Activity Restrictions/Additional Instructions: Please further follow-up with your primary care doctor as needed in 2 to 3 days, please take medications as prescribed in which please return in the interim if any of your symptoms persist or worse. 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 Breast cancer Dyslipidemia Anxiety Essential (primary) hypertension GERD (gastroesophageal reflux disease) Vitamin D deficiency Surgical History History of lumpectomy of right breast (1998) History of left breast biopsy (05/2022) Ultrasound-guided biopsies of left breast and left axillary lymph node History of inferior vena caval filter placement (05/2022) Removed in August 2022 History of appendectomy History of cholecystectomy History of hysterectomy Total knee replacement status LEFT Family History Brother Cancer Dementia Mother Cancer Sister CAD (coronary artery disease) Son CAD (coronary artery disease) Diabetes Daughter Lung disease Denies family history of Hyperlipidemia Psychiatric illness Suicide Stroke Social History Smoking and tobacco/nicotine status: former use of tobacco/nicotine Quit status (tobacco/nicotine): has quit using Year quit tobacco: 1993 Former quit date comment: smoked 20 years Second hand smoke exposure: No Alcohol intake: never Substance/Drug Use: never Caregiver/support person: No Lives independently: Yes Household members: spouse Housing: House Marital status: service: No Current occupational status: retired Do you think of yourself as: Straight/Heterosexual Current gender identity: Female Course Vital Signs: Vital signs: Vital Signs Temperature 98.3 F 06/29/23 15:51 Pulse Rate 61 06/29/23 18:00 Respiratory Rate 18 06/29/23 15:51 Blood Pressure 126/62 06/29/23 18:00 Pulse Oximetry 95 06/29/23 18:00 Oxygen Delivery Me thod Room Air 06/29/23 18:00 MDM - Epistaxis Medical Decision Making Due to patient's significant accident a right-sided rib series will be obtained with a chest x-ray patient will have tranexamic acid introduced into the right nares after blowing it in which will observation. Under clamp and nasal clamp in which patient continues to be bleeding free patient will be discharged patient was provided a dose of hydrocodone for pain control. X-rays were read as unremarkable per radiology no rib fractures appreciated patient will be placed on limited prescription of hydrocodone for pain control we will do an observation. After the TXA is placed in the right nares anticipate discharge home after about an hour of observation to make sure the patient does not rebleed,this patient was signed out to my colleague Dr. Montaño at 1800. No re-bleeding. Will allow DC at this point. Lab Data Radiology Impressions Ribs X-Ray 06/29/23 17:01 IMPRESSION: NO ACUTE POSTTRAUMATIC CHANGES IN THE CHEST. IN PARTICULAR, NO RIB FRACTURE. Discharge Plan Discharge Patient Disposition: Home Clinical Impression: Acute anterior epistaxis, Acute chest wall pain, Status post fall, Current use of [facility] anticoagulation Condition: Stable Prescriptions: New hydrocodone-acetaminophen 5-325 mg tablet 1 tab PO Q8H PRN (Reason: pain) Qty: 20 0RF No Action diltiazem HCl 30 mg tablet 30 mg PO BID Eliquis 5 mg tablet 5 mg PO BID levetiracetam 500 mg tablet 500 mg PO BID diazepam 5 mg tablet 5 mg PO TID PRN (Reason: anxiety/shaking/nervousness) 30 Days Qty: 90 1RF loperamide 2 mg capsule 2 mg PO Q6H PRN (Reason: Diarrhea) doxycycline hyclate 100 mg capsule 100 mg PO BID 10 Days Qty: 20 0RF Rx Instructions: for 10 days (rx filled 06/11/23) methadone 10 mg tablet 10 mg PO Q6H 15 Days Qty: 60 0RF oxycodone 10 mg tablet 10 mg PO Q4H MDD 60mg PRN (Reason: breakthrough pain, moderate) 15 Days Qty: 90 0RF simethicone 125 mg capsule 125 mg PO TID PRN (Reason: bloating) Qty: 30 1RF metoprolol succinate 200 mg tablet extended release 24 hr 200 mg PO BEDTIME@2200 Qty: 30 11RF enalapril maleate 20 mg tablet 20 mg PO BID@0800,2200 Qty: 60 11RF amlodipine [Norvasc] 10 mg tablet 10 mg PO DAILY@0800 Qty: 30 11RF ondansetron HCl 4 mg tablet 4 mg PO Q6H PRN (Reason: nausea and vomiting) Qty: 60 1RF palbociclib 125 mg capsule 125 mg PO DAILY Qty: 21 11RF Rx Instructions: (PT NOT STARTED OF 06/16/23) administer on days 1 through 21 of a 28-day treatment cycle simvastatin 20 mg tablet 20 mg PO QPM furosemide 40 mg tablet 40 mg PO QAM Senna-S 8.6-50 mg Tablet 1 tab PO BID exemestane 25 mg tablet 25 mg PO QAM Rx Instructions: must administer after a meal tizanidine 4 mg tablet 4 mg PO Q6H PRN (Reason: muscle spasticity) Qty: 20 0RF Rx Instructions: do not exceed 3 doses per 24 hrs prednisone 20 mg tablet 20 mg PO TID Qty: 15 0RF Rx Instructions: 1 p.o. 3 times daily x3 days, 1 p.o. twice daily x2 days, 1 p.o. daily x2 days amoxicillin-pot clavulanate 875-125 mg tablet 1 tab PO BID Qty: 14 0RF bacitracin zinc 500 unit/gram ointment 1 applic topical DAILY Qty: 28 0RF pantoprazole 40 mg tablet,delayed release (DR/EC) 40 mg PO QAM Discharge Orders: Discharge ED (Routine); Ordered 06/29/23 Ordered By: Sonny Torrez Referrals: Mitchell Dior, [Primary Care Provider] - 4-7 days Discharge Diet: Advance as tolerated Discharge Activity: Increase activity as tolerated Patient Instructions: Nosebleed (ED), Chest Wall Pain (ED), Epistaxis - Adult, Opioid Safety, Pain Management Activity Restrictions/Additional Instructions: Please further follow-up with your primary care doctor as needed in 2 to 3 days, please take medications as prescribed in which please return in the interim if any of your symptoms persist or worse. 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
[2023-06-29] MEDS: tranexamic acid 1,000 mg/10mL SDV 1000 MG MUCOUS MEM (17:50)
[2023-06-29 18:00] VITALS: BP 126/62; PULSE 61; O2SAT 95
== END 2023-06-29 20:00 | disposition home or self-care (01) ==
PROVIDERS: Emergency Provider Emergency Medicine; PCP Family Medicine
DX: R04.0 Epistaxis (principal); R07.89 Other chest pain; Z79.01 Long term (current) use of anticoagulants; Z79.891 Long term (current) use of opiate analgesic; Z87.891 Personal history of nicotine dependence; I10 Essential (primary) hypertension; E78.5 Hyperlipidemia, unspecified; C50.919 Malignant neoplasm of unspecified site of unspecified female breast; R07.81 Pleurodynia
CPT/HCPCS: 71101; 99284